=== PATIENT | female | born 1970 | race Caucasian/White ===

== ENCOUNTER 2018-09-19 21:35 | Emergency (ER) | payer MEDICAID, SELFPAY ==
[2018-09-19 21:36] VITALS: BP 149/93; PULSE 82; RESP 16; TEMP 35.9; O2SAT 98; BMI 32.2
--- NOTE | 2018-09-19 22:46 | EKG12_ITS ---
Test Reason : Blood Pressure : / mmHG Vent. Rate : 071 BPM Atrial Rate : 071 BPM P-R Int : 124 ms QRS Dur : 088 ms QT Int : 384 ms P-R-T Axes : 036 059 057 degrees QTc Int : 417 ms Normal sinus rhythm Normal ECG Confirmed by SONIA CORTES, AMISH ([id number]), non linear editor KATE BLACK ([id number]) on 09/22/2018 12:50:14 PM Referred By: THA Confirmed By:AMISH SCOTT MD
--- NOTE | 2018-09-19 22:49 | ED.RN ---
NO OLD EKGS IN MUSE
--- NOTE | 2018-09-19 23:09 | ED.VISSUMM ---
- ER Visit Summary Date of Service: 09/19/18 Chief Complaint: High potassium History of Present Illness: The patient is a 48 F with a history of diabetes, hypertension, high cholesterol. Patient was seen by a rent control office manager at [facility] today. After the appointment blood work was drawn. They received a phone call tonight that her potassium was greater than 6 and she needed to present to the emergency room. Patient has no physical complaints. Physical Examination: Vital signs unremarkable. Patient sitting upright in bed no acute distress. Patient is in no acute distress and is nontoxic appearing. Head and neck examination is normal. Heart is regular rate and rhythm. Palpable pulses are noted throughout. Lungs are clear with good air movement throughout. Abdomen is soft and nontender. Bowel sounds are noted. Extremity examination is unremarkable with full range of motion. Neurologic examination reveals no focal deficits. Test Results: EKG is sinus at 71 with no T wave changes. CBC was normal white count hemoglobin 10.8. Chemistry studies here reveal potassium of 4.6. Her BUN is 35 and her creatinine is 1.44. Glucose is 211. Emergency Department Course and Treatment: I discussed with the patient that I believe that her potassium was high on her earlier lab draw secondary to hemolysis. At this time there is no evidence of hyperkalemia. Patient is to follow-up with her rent control office manager as scheduled. Treatment Plan: [] Disposition: Discharge Impression: Erroneous lab result This note was generated with [employer] dictation software. It may contain incorrect words, spelling, and punctuation that were not noted in review of the chart prior to signing ED Disposition - Plan for ED Patient: Disposition: Home or Assisted Living Chief Complaint: Abn Labs Referrals: Colin Pedraza [Primary Care Provider] - Additional Instructions: Your repeat potassium level is normal at 4.6. No acute treatment is needed.
[2018-09-19 23:14] LABS: Absolute Lymphocyte Count 3.11 X10^3/ul (0.83-4.51); Absolute Neutrophil Count 4.1 X10^3/uL (2.0-7.7); Basophil# 0.07 X10^3/uL; Basophil% 0.8 % (0-1); Hematocrit 33.2 % (37-47); Hemoglobin 10.8 g/dl (12.0-15.0); Lymphocyte # 3.11 X10^3/ul (4.0); Lymphocyte % 37.1 % (19-41); Mean Corp Hgb Conc 32.5 g/gl (32-36); Mean Corpuscular Hgb 28.3 pg (27.0-32.0); Mean Corpuscular Volume 87.1 fL (81-99); Mean Platelet Vol. 10.2 fl (6.2-12.0); Monocyte# 0.57 X10^3/uL; Monocyte% 6.8 % (0-10); Neutrophil # 4.09 X10^3/uL (2.7-7.7); Neutrophil % 48.8 % (47-70); Platelet Count 214 K/mm3 (150-450); RBC Distribution Width SD 39.7 fl (35.1-43.9); Red Blood Count 3.81 M/mm3 (4.2-5.4); White Blood Count 8.4 K/mm3 (4.4-11.0)
[2018-09-19 23:18] VITALS: BP 129/84; PULSE 73; RESP 16; O2SAT 98
[2018-09-19 23:18] LABS: POSITIVE COUNT NO; POSITIVE DIFFERENTIAL NO; POSITIVE MORPHOLOGY NO
[2018-09-19] MEDS: 0.9% Normal Saline 1,000 ML 150 ML IV (23:18)
[2018-09-19 23:20] VITALS: RESP 16; TEMP 36.8; O2SAT 98
[2018-09-19 23:22] LABS: Anion Gap 10 (5-15); BUN 35 mg/dL (7-18); BUN/Creat Ratio 24.3 RATIO (10-20); Calcium,Total 8.8 mg/dL (8.5-10.1); Chloride 106 mmol/L (98-107); Creatinine, Serum 1.44 mg/dL (0.55-1.02); EST Glomerular Filtration Rate 42 mL/min (>60); Est Glom Filt Rate - Afr Amer 50 mL/min (>60); Estimated Creatinine Clearance 35.06 ml/min; Glucose 211 mg/dL (74-106); Potassium 4.6 mmol/L (3.5-5.1); Sodium Level 135 mmol/L (136-145)
--- NOTE | 2018-09-19 23:28 | ED.DEP ---
ED Disposition - Plan for ED Patient: Disposition: Home or Assisted Living Chief Complaint: Abn Labs Referrals: Colin Pedraza [Primary Care Provider] - Additional Instructions: Your repeat potassium level is normal at 4.6. No acute treatment is needed.
[2018-09-19 23:36] VITALS: BP 142/74; PULSE 75; RESP 16; O2SAT 98
== END 2018-09-19 23:45 | disposition home or self-care (01) ==
PROVIDERS: Emergency Provider Emergency Medicine; Family Provider Student in an Organized Health Care Education/Training Program; PCP Student in an Organized Health Care Education/Training Program
DX: R88.8 Abnormal findings in other body fluids and substances (principal); E11.9 Type 2 diabetes mellitus without complications; I10 Essential (primary) hypertension; E78.00 Pure hypercholesterolemia, unspecified; Z72.0 Tobacco use
CPT/HCPCS: 80048; 85025; 93005; 96360; 99284; J7030; A4216

== ENCOUNTER 2019-04-16 12:51 | Emergency (ER) | payer MEDICAID, SELFPAY ==
[2019-04-16 12:52] VITALS: BP 141/84; PULSE 71; RESP 16; TEMP 36.8; O2SAT 100; BMI 29.2
--- NOTE | 2019-04-16 13:19 | RAD_ITS ---
STUDY: X-RAY - ACUTE ABDOMINAL SERIES REASON FOR EXAM: Female, 48 years old. Nausea and vomiting. Constipation. TECHNIQUE: Single view of the chest. Supine, upright view(s) of the abdomen were obtained. COMPARISON: None. FINDINGS: The lungs are clear. There are no pleural effusions. There is no pneumothorax. The heart is normal in size. There is no bowel obstruction. There is air and stool to the level of the rectum. There is a large amount of stool in the colon, consistent with constipation. There is no free air. The visualized osseous structures are within normal limits. RAD/Acute Abdomen Inc Chest IMPRESSION: Clear lungs. No bowel obstruction. Constipation. Electronically Signed: Ge Strauss, at 14:28 EDT Tel , Service support ,
--- NOTE | 2019-04-16 13:27 | ED.VIS.GEN ---
History of Present Illness Chief Complaint: Constipation Detail of Chief Complaint: Nausea and vomiting Informant: Patient, Family Onset: Days Context: Sudden Onset Timing: Intermittent - Nausea and vomiting and constipation Location: Generalized abdominal pain with vomiting Current Severity: Mild Maximum Severity: Moderate Worsened by: Pain worse with vomiting Relieved by: Nothing Associated Symptoms: Small hard stool and positive flatus Narrative: Patient is a middle-age woman who presents with nausea vomiting past several days with difficulty moving her bowels. She states she is going small hard amounts of stool. She is passing gas but not as much as normal. She denies history of abdominal surgery. She denies history of obstruction. She denies urologic symptoms. She denies respiratory cardiac symptoms. She denies dysuria, frequency, urgency or hematuria. Prior similar symptoms: No Recent Illness/Hospitalization: No - Past Medical History (1) History of type 2 diabetes mellitus Status: Acute (2) History of hypertension Status: Acute (3) Dysfunction, bladder Status: Acute Past Medical History - Allergies and Home Meds Allergies/Adverse Reactions: Allergies No Known Allergies Allergy (Verified 09/19/18 21:36) Primary Care Physician: Colin Pedraza [Primary Care Provider] - Prior records reviewed: Yes Surgical History: no surgical history Lives: With Family Smoking Status: Former smoker Alcohol: None Drugs: None Review of Systems General: Denies: Chills, Fever, Sweats Eyes: Denies: Visual changes - bilaterally, Diplopia ENT: Denies: Rhinorrhea, Sore throat Cardiovascular: Denies: Chest pain, Palpitations Respiratory: Denies: Dyspnea, Cough, Dyspnea on exertion Gastrointestinal: Reports: Abdominal pain, Nausea, Vomiting, Constipation. Denies: Diarrhea, Melena, Hematochezia Genitourinary: Denies: Dysuria, Hematuria, Frequency Musculoskeletal: Denies: Back pain, Extremity Pain Skin: Denies: Rash, Wounds Neurological: Denies: Headache, Weakness, Numbness Endocrine: Denies: Polyuria, Polydipsia Hematologic: Denies: Easy bruising Allergy: Denies: Uticaria, Swelling of the mouth Physical Exam Vital Signs/Narrative: Vital Signs Temp Pulse Resp BP Pulse Ox 04/16/19 12:52 98.2 F 71 16 141/84 H 100 Inital Vital Signs reviewed: Yes General: Well nourished, Well developed, No Acute Distress Head: Normocephalic, Atraumatic Eyes: Perrl, EOMI ENT: No rhinorrhea, Dry mucous membranes Neck: Supple, Nontender, No lymphadenopathy, No JVD Cardiovascular: Regular rate, Regular rhythm, No murmurs, Normal S1, Normal S2 Respiratory: No distress, CTA bilaterally, Chest nontender Abdomen: Soft, Nontender, Nondistended, Normal bowel sounds, No masses Rectal: Deferred Back: Nontender, Normal Inspection Extremities: Nontender, No edema Skin: Normal color, No rash Neurological: Alert, Oriented x3, Cranial nerves II-XII grossly intact, Normal Strength, Normal Sensation Psychological: Normal affect, Normal Mood Diagnostic/Tx/Re-eval Chest X-Ray - ED: Read by ED Physician, - - 3 view abdominal series was obtained. The chest portion is unremarkable with normal cardiac silhouette, mediastinum and lung parenchyma. The abdominal portion reveals significant amount of fecal stasis. There is no evidence of ileus, obstruction or pneumoperitoneum. Impressions Acute Abdomen Series 04/16/19 13:19 IMPRESSION: Clear lungs. No bowel obstruction. Constipation. Electronically Signed: Ge Rica, at 14:28 EDT Tel , Service support , 04/16/19 13:19 Acute Abdomen Inc Chest [RAD] Stat Laboratory Results 04/16/19 13:35 Sodium 124 L Potassium 3.6 Chloride 86 L Carbon Dioxide 27.0 Anion Gap 11 BUN 13 Creatinine 0.86 Estim Creat Clear Calc 58.71 Est GFR (MDRD) Af Amer 91 Est GFR (MDRD) Non-Af 75 BUN/Creatinine Ratio 15.1 Glucose 139 H Calcium 9.4 Patient has hyponatremia and hypochloremia secondary to thiazide diuretic. Since she is asymptomatic no treatment was undertaken. She was instructed to follow-up with her doctor. - Medical Decision Making We will obtain abdominal series to evaluate for ileus, obstruction versus obstipation. Clinically she is dehydrated and will receive 1 L of normal saline. Since she had symptoms for several days we will obtain a basic metabolic panel to assess electrolyte and renal function. Patient was referred to her primary care physician regarding thiazide diuretic and hyponatremia. She was instructed to drink 10 ounces of mag citrate followed 4 hours later by mag citrate and to drink a glass of mag citrate every hour until she has results. ED Disposition - Plan for ED Patient: Disposition: Home or Assisted Living Diagnosis: Constipation, Hyponatremia, Hypochloremia Instructions: CONSTIPATION (Adult) Referrals: Colin Pedraza [Primary Care Provider] - 5-7 Days Additional Instructions: You need to follow-up with your primary care physician to discuss possibly changing your blood pressure medication. Your sodium is low because of the 1 of your blood pressure medicines. You do have evidence of constipation on the abdominal x-ray. Recommendation is 10 ounces of mag citrate followed 4 hours later by a glass with MiraLAX. Drink a glass of MiraLAX every hour until you have results.
[2019-04-16] MEDS: Ondansetron 4 MG/2 ML Vial IV (13:46)
[2019-04-16] MEDS: 0.9% Normal Saline 1,000 ML 1000 ML IV (13:46)
[2019-04-16 14:02] LABS: Anion Gap 11 (5-15); BUN 13 mg/dL (7-18); BUN/Creat Ratio 15.1 RATIO (10-20); Calcium,Total 9.4 mg/dL (8.5-10.1); Chloride 86 mmol/L (98-107); Creatinine, Serum 0.86 mg/dL (0.55-1.02); EST Glomerular Filtration Rate 75 mL/min (>60); Est Glom Filt Rate - Afr Amer 91 mL/min (>60); Estimated Creatinine Clearance 58.71 ml/min; Glucose 139 mg/dL (74-106); Potassium 3.6 mmol/L (3.5-5.1); Sodium Level 124 mmol/L (136-145)
[2019-04-16 15:13] VITALS: BP 147/96; PULSE 68; RESP 17; O2SAT 99
== END 2019-04-16 15:14 | disposition home or self-care (01) ==
PROVIDERS: Emergency Provider Emergency Medicine; Family Provider Student in an Organized Health Care Education/Training Program; PCP Student in an Organized Health Care Education/Training Program
DX: K59.00 Constipation, unspecified (principal); E87.1 Hypo-osmolality and hyponatremia; E87.8 Other disorders of electrolyte and fluid balance, not elsewhere classified; Z87.891 Personal history of nicotine dependence; E11.9 Type 2 diabetes mellitus without complications; I10 Essential (primary) hypertension
CPT/HCPCS: 74022; 80048; 99283; J7030; A4216; J2405

== ENCOUNTER 2019-04-22 14:33 | Inpatient (IN) | payer MEDICAID, SELFPAY ==
[2019-04-22] VITALS (8 sets, daily range): BP systolic 160–174; BP diastolic 70–88; PULSE 65–70; RESP 15–16; TEMP 35.8–36.8; O2SAT 98–100; BMI 31.3; BMI 31.4
--- NOTE | 2019-04-22 15:47 | ED.VISSUMM ---
- ER Visit Summary Date of Service: 04/22/19 Chief Complaint: Nausea and vomiting. Sent over from primary care physician's office due to low sodium. History of Present Illness: The patient is a 48 F 3 of diabetes, hypertension and renal insufficiency. Patient has had nausea vomiting for about 2 weeks. Intermittent. No hematemesis. No melena or fever. Was seen here about a week ago treated is doing better for the last several days has developed nausea and vomiting again. Had labs done at the outpatient physician's office reportedly came back with low sodium they called her today and told her dad to take her to the emergency department. Physical Examination: Middle-aged female. No acute distress. Vital signs are stable afebrile. HEENT exam unremarkable. Much with members. Neck nontender no lymphadenopathy. Lungs clear to auscultation bilaterally. Heart regular rhythm no murmur. Rate about 65. No abdomen soft nontender. Normal bowel sounds no peritoneal signs. No signs of obstruction. No acute bowel obstruction or masses. Patient is moving all 4 extremities. Neurologically she is awake and alert. Dad is CBC present in her room and gives most of the history. Her back is nontender. Skin is pale. No rashes. Neurologically she is awake and alert with no focal motor deficits. Test Results: CBC White count 11.7. Hemoglobin 9.2. Electrolytes sodium 108. Potassium 3. Anion gap 9. Normal BUN and creatinine. Emergency Department Course and Treatment: Patient treated with a liter normal saline. Screening labs will be obtained. She was given IV Zofran. Will have a p.o. fluid challenge. Treatment Plan: Patient started on IV normal saline. I spoke to the hospitalist about admission. Patient be admitted to PCU. Disposition: PCU admission Impression: Nausea and vomiting Acute hyponatremia and hypokalemia. This note was generated with [employer] dictation software. It may contain incorrect words, spelling, and punctuation that were not noted in review of the chart prior to signing ED Disposition - Plan for ED Patient: Referrals: Colin Pedraza [Primary Care Provider] -
[2019-04-22 15:58] LABS: Absolute Lymphocyte Count 1.03 X10^3/uL (0.83-4.51); Absolute Neutrophil Count 9.9 X10^3/uL (2.0-7.7); Basophil# 0.01 X10^3/uL; Basophil% 0.1 % (0-1); Eosinophil# 0.03 X10^3/uL; Eosinophils% 0.3 % (0-5); Hematocrit 30.8 % (37-47); Hemoglobin 11.2 g/dL (12.0-15.0); Lymphocyte # 1.03 X10^3/ul (4.0); Lymphocyte % 8.8 % (19-41); Mean Corp Hgb Conc 36.4 g/dL (32-36); Mean Corpuscular Hgb 27.5 pg (27.0-32.0); Mean Corpuscular Volume 75.5 fL (81-99); Mean Platelet Vol. 9.4 fl (6.2-12.0); Monocyte# 0.66 X10^3/uL; Monocyte% 5.7 % (0-10); NRBC Flagged by Analyzer 0 % (0-5); Neutrophil # 9.87 X10^3/uL (2.7-7.7); Neutrophil % 84.7 % (47-70); Platelet Count 219 K/mm3 (150-450); Red Blood Count 4.08 M/mm3 (4.2-5.4); White Blood Count 11.7 K/mm3 (4.4-11.0)
[2019-04-22 16:12] LABS: Anion Gap 9 (5-15); BUN 9 mg/dL (7-18); BUN/Creat Ratio 11.8 RATIO (10-20); Calcium,Total 8.5 mg/dL (8.5-10.1); Chloride 71 mmol/L (98-107); Creatinine, Serum 0.76 mg/dL (0.55-1.02); EST Glomerular Filtration Rate 87 mL/min (>60); Est Glom Filt Rate - Afr Amer 105 mL/min (>60); Estimated Creatinine Clearance 66.44 ml/min; Glucose 97 mg/dL (74-106); Sodium Level 108 mmol/L (136-145)
[2019-04-22] MEDS: 0.9% Normal Saline 1,000 ML 1000 ML IV (16:33)
[2019-04-22] MEDS: Ondansetron 4 MG/2 ML Vial IV (16:34)
--- NOTE | 2019-04-22 16:43 | NURSING ---
DR NARDA MCCARTY
--- NOTE | 2019-04-22 17:10 | CASEMGMT ---
RN CM Assessment Introduced role of RN CM to patient and patient father at bedside.? Patient is alert, oriented and able?to participate in RN CM Assessment. ?Care providers, pharmacy, and demographics verified. Presentation: N/v. Was seen in ER 04/16/19 for N/v, constipation. Admit Dx: Severe Hyponatremia Re-Admit: No Barriers/Issues: Patient has a lack of Social Support. Per Father just him and denies other social support. States patient needs to do a HPOA/LW and plan to do it through his contact, states concern that if he cannot help patient going to need assistance. States he is the one who is currently taking her to appointments. Patient and Father made aware if he were unable to that through her Insurance CRS that she can call and they can assist with transportation, also made aware for LT Plan can assist with [facility] Placement if/when needed. States has not taken her medications x2 weeks d/t inability to keep them down. PCP: Colin Pedraza Specialists: [facility]- Dr Mario Adhikari, [place] SUBACUTE NURSE- [place] Preferred Pharmacy: [email or web address] Insurance: [facility] [[email or web address] Rx Benefit: Yes? LNOK: Father- Martin Gamez LW/HPOA: None, declines offered information at this time, made aware [facility] offers information and services if changes her mind. Living Arrangements:? Lives alone in a 2 story home, Bedroom on [address], [address] steps to enter home. ADL?s: Independent with ambulation and ADLs Transportation: Patient drives, Plan for Father to transport upon DC DME: [employer] HHC: None SNF: None Goal: Home, does not think will have any needs, Concern of finding out what is causing her N/V. Denies any further questions/issues/concerns with DC Planning at this time. Aware CM remains available for any emerging needs. DC PLAN: Home with no anticipated needs identified at this time. STEPHAN Campos
[2019-04-22] MEDS: 0.9% Normal Saline 1,000 ML 100 ML IV (17:30)
[2019-04-22 18:31] LABS: Phosphorus 3.6 mg/dL (2.5-4.9)
[2019-04-22 18:47] LABS: Hemoglobin A1c 7.7 % (4.2-6.3)
[2019-04-22 18:55] LABS: AST(SGOT) 59 U/L (15-37); Alanine Aminotransfer ALT/SGPT 33 U/L (13-56); Albumin, Serum 2.9 g/dL (3.2-5.0); Alkaline Phosphatase 124 U/L (45-117); Anion Gap 10 (5-15); BUN 9 mg/dL (7-18); BUN/Creat Ratio 11.9 RATIO (10-20); Bilirubin, Direct 0.13 mg/dL (0.00-0.30); Calcium,Total 8.4 mg/dL (8.5-10.1); Chloride 75 mmol/L (98-107); Creatinine, Serum 0.76 mg/dL (0.55-1.02); EST Glomerular Filtration Rate 87 mL/min (>60); Est Glom Filt Rate - Afr Amer 106 mL/min (>60); Estimated Creatinine Clearance 66.44 ml/min; Globulin 3.6 g/dL (2.2-4.2); Glucose 86 mg/dL (74-106); Magnesium 1.1 mg/dL (1.6-2.6); Potassium 3.3 mmol/L (3.5-5.1); Protein, Total 6.5 g/dL (6.4-8.2); Sodium Level 112 mmol/L (136-145); Thyroid Stim Hormone (TSH) 0.12 uIU/mL (0.358-3.74)
[2019-04-22 19:06] LABS: Bacteria 0 SEEN /hpf (None Seen); Mucous, Urine 0 SEEN /hpf (<or=2+); Red Blood Cells-Urine 0 SEEN /hpf (0-5); Squamous Epithelial Cells - UA 0 SEEN /hpf (5-10); White Blood Cells 0 SEEN /hpf (0-5)
[2019-04-22 19:13] LABS: Urine Sodium 11 mmol/L (Not Establ.)
[2019-04-22 19:17] LABS: Color, Urine Yellow (Yellow); Glucose, Dipstick Normal (Normal); Ketone-Dipstick Negative (Negative); Leukocyte Esterase-Dipstick Negative /ul (Negative); Nitrite-Dipstick Negative (Negative); Occult Blood-Urine 150 /ul (Negative); Protein-Dipstick 100 mg/dl (Negative); Specific Gravity, Urine 1.005 (1.002-1.030); Urine Bilirubin Dipstick Negative (Negative); Urine Clarity Clear (Clear); Urine Urobilinogen Normal (Normal)
[2019-04-22 19:22] LABS: Creatinine, Urine (random) < 13.00 mg/dL (NO RANGE EST.)
[2019-04-22 19:34] LABS: Osmolality, Urine 58 mOsm/KG
[2019-04-22 19:36] LABS: Osmolality, Serum 231 mOsm/KG (275-295)
[2019-04-22 19:45] LABS: Ferritin 32 ng/mL (8-252); Iron 82 ug/dL (50-170); Iron Binding Capacity,Total 568 ug/dL (250-450); PERCENT IRON SATURATION 14.4 % (15.0-55.0)
--- NOTE | 2019-04-22 19:47 | HP.PCM_ITS ---
Problem List (1) Hyponatremia Status: Acute (2) Metabolic encephalopathy Status: Acute (3) Hyperkalemia Status: Chronic (4) Hypokalemia Status: Acute (5) Diabetic retinopathy Status: Chronic Qualifiers: Diabetes mellitus type: type 2 (6) Obesity (BMI 30.0-34.9) Status: Chronic (7) Hypomagnesemia Status: Acute (8) Nausea vomiting and diarrhea Status: Acute (9) Low TSH level Status: Acute (10) Hyperlipidemia Status: Chronic (11) Microcytic anemia Status: Acute (12) Proteinuria Status: Chronic (13) Asthma Status: Chronic Qualifiers: Asthma severity: mild (14) Depression Status: Chronic (15) GERD (gastroesophageal reflux disease) Status: Chronic (16) Restless leg syndrome Status: Chronic History of Present Illness Date of Admission: 04/22/19 Chief Complaint: confusion, fatigue, N/V for the past 2 weeks The patient is a 48 year old F with a PMH of hypertension, diabetes mellitus type 2, heart murmur, GERD, hyperlipidemia, chronic hyperkalemia and proteinuria for which she sees a bean viner at the [facility], diabetic retinopathy, restless leg syndrome and obesity who presented to the emergency department at [facility] complaining of nausea/vomiting/loose stools for the past 2 weeks. She has not taking any of her prescribed medications for the past week due to inability to keep anything down. She has also been confused and f atigued recently. Vital signs at presentation to the emergency department are temperature 96.5, blood pressure 168/83, respiratory rate 16 and she was 100% saturated on room air. CBC was significant for a white blood cell count of 11.7 with 84% neutrophils. Hemoglobin was 11.2 with an MCV of 75.5. Platelet count was 219,000. Chemistries showed a low sodium of 108, low potassium at 3.0 and a low chloride at 71. BUN was 9 and the creatinine was 0.76. Calcium was 8.5. Random blood sugar was 97. On PE she was confused and had a hard time answering my questions. Her father provide most of her hx. She was admitted to a monitored bed on PCU and workup for hyponatremia was iniatiated. Past Medical History Past Medical History (Chronic Problems): Chronic Problems Hyperkalemia (Chronic) Diabetic retinopathy (Chronic) Obesity (BMI 30.0-34.9) (Chronic) Hyperlipidemia (Chronic) Proteinuria (Chronic) Asthma (Chronic) Depression (Chronic) GERD (gastroesophageal reflux disease) (Chronic) Restless leg syndrome (Chronic) Allergies No Known Allergies Allergy (Verified 04/22/19 15:22) Home Medications: Ambulatory Orders Medication Instructions Recorded Gabapentin [Neurontin] 600 mg PO QHS 05/27/16 Albuterol Inhaler [Ventolin Hfa 2 puff INHALATION Q4H PRN PRN 04/16/19 (SP)] Amlodipine Besylate 10 mg PO DAILY 04/16/19 Atorvastatin Calcium 40 mg PO DAILY 04/16/19 Bupropion HCl [Bupropion Xl] 300 mg PO DAILY 04/16/19 Chlorthalidone 25 mg PO DAILY 04/16/19 Cholecalciferol (VIT D3) [Vitamin 1,000 unit PO DAILY 04/16/19 D] Lysine 1,000 mg PO DAILY 04/16/19 Multivitamin [Once Daily] 1 tab PO DAILY 04/16/19 [place]-3 Fatty Acids/Fish Oil 2 cap PO DAILY 04/16/19 [[place] 3 1,000 mg Softgel] Patiromer Calcium Sorbitex 16.8 gm PO DAILY 04/16/19 [Veltassa] Ranitidine [Zantac] 150 mg PO BID 04/16/19 Sodium Bicarbonate 1,300 mg PO DAILY 04/16/19 Estrogen,Con/M-Progest Acet 1 tab PO DAILY 04/22/19 [Prempro 0.625-2.5 MG Tablet] Ferrous Sulfate 325 mg PO DAILY 04/22/19 Lisinopril 10 mg PO DAILY 04/22/19 Meclizine HCl 25 mg PO BID PRN PRN 04/22/19 Sodium Bicarbonate 650 mg PO DAILY 04/22/19 metFORMIN (XR) [Glucophage Xr] 1,000 mg PO BID 04/22/19 Surgical History: - - Surgery to remove a skin cancer from her ear and extraction of teeth. Psychiatric History: Depression [employer]URE/[employer] History: - - she is POG1 with 1 miscarriage Lives: Alone Smoking Status: Former smoker Tobacco Use: Non-smoker Alcohol: Rare - used to drink everyday when she was in her 20's Drugs: None - *Family History Paternal History Items: - - she is adopted and has no knowledge of her parents Review of Systems Constitutional: Reports: Anorexia, Weakness. Denies: Chills, Fever, Weight Change Eyes: Denies: Vision Change HEENT: Denies: Difficulty Swallowing, Head Aches, Sinus Congestion, Sinus Drainage, Sore Throat Cardiovascular: Reports: Light Headedness. Denies: Chest Pain, Edema, Heaviness, Palpitations Respiratory: Denies: Cough, Shortness of Breath, Shortness of breath at rest, Shortness of breath upon exertion, Sputum production, Wheezing Gastrointestinal: Reports: Diarrhea, Nausea, Vomiting. Denies: Abdominal Pain, Hematemesis, Hematochezia, Melena Genitourinary: Denies: Dysuria Gynecological: Denies: Breast symptoms, Vaginal discharge Musculoskeletal: Reports: - - restless leg. Denies: Joint Pain, Joint Tenderness Skin: Denies: Jaundice, Rash, Wounds Neurological: Reports: Balance problems - just recently, Confusion. Denies: Slurred speech, Difficulty swallowing, Focal weakness, Headaches, Numbness, Tingling, Seizures Psychiatric: Reports: Depression. Denies: Anxiety, Homicidal Ideations, Suicidal Ideations Endocrine: Denies: Hx of Thyroiditis Hematologic/ Lymphatic: Denies: Easy Bruising, Easy Bleeding, Hx of blood clot VTE Information - Inpt Only VTE Present on Admission: No VTE Mechan Device Prophylaxis: Knee High ENMANUEL Hose VTE Pharm Prophylaxis ordered?: Yes Patient Problems: Active and Suspected Problems Hyponatremia (Acute) Metabolic encephalopathy (Acute) Hypokalemia (Acute) Hypomagnesemia (Acute) Nausea vomiting and diarrhea (Acute) Low TSH level (Acute) Microcytic anemia (Acute) - Physical Exam General: Alert, Cooperative, - - pale, having a hard time answering questions and is upset that she can not remeber things - her father tells me that this is very unusual for her HEENT: Atraumatic, PERRLA, EOMI, Normocephalic Oral: No Gingival or Mucosal Lesions/ Ulcerations, Dry Mucosa Neck: Supple, No JVD, Negative Carotid Bruits, Trachea Midline Lungs: Clear to auscultation, Normal air movement, No wheeze, No rales, Diminished Cardiovascular: Regular rate, Regular Rhythm, Normal S1, Normal S2, No Ectopic Activity, Murmur - 1-2/6 at the second RICS with radiation to the LVOT and the LLSB, No rub noted, No Gallop Abdomen: Bowel Sounds Present, Soft, Non Tender, Non-Distended Extremities: No clubbing, No cyanosis, No edema, No Calf Tenderness, Peripheral Pulses Normal Skin: No rashes, No breakdown Musculoskeletal: No Tenderness to Palpation of Joints or Extremities Neurological: Cranial nerves II-XII grossly intact, Neuro grossly intact Psych/Mental Status: Normal Affect, Appropriate Vital Signs Temp Pulse Resp BP Pulse Ox 98.3 F 70 16 160/76 H 100 04/22/19 17:42 04/22/19 17:42 04/22/19 17:42 04/22/19 17:43 04/22/19 17:42 Oxygen Delivery Method Room Air Weight: 160 lb 11.472 oz Body Mass Index (BMI) 31.4 Laboratory Tests Past 24 Hrs 04/22/19 04/22/19 04/22/19 15:36 15:36 18:00 WBC 11.7 H RBC 4.08 L Hgb 11.2 L Hct 30.8 L MCV 75.5 L MCH 27.5 MCHC 36.4 H RDW Std Deviation 33.0 L RDW Coeff of Mandy 12.0 Plt Count 219 MPV 9.4 Immature Gran % (Auto) 0.400 Neut % (Auto) 84.7 H Lymph % (Auto) 8.8 L [place] % (Auto) 5.7 Eos % (Auto) 0.3 Baso % (Auto) 0.1 Absolute Neuts (auto) 9.9 H Absolute Lymphs (auto) 1.03 Nucleated RBC % 0 Sodium 108 L* 112 L* Potassium 3.0 L 3.3 L Chloride 71 L* 75 L Carbon Dioxide 28.0 27.0 Anion Gap 9 10 BUN 9 9 Creatinine 0.76 0.76 Estim Creat Clear Calc 66.44 66.44 Est GFR (MDRD) Af Amer 105 106 Est GFR (MDRD) Non-Af 87 87 BUN/Creatinine Ratio 11.8 11.9 Glucose 97 86 Hemoglobin A1c Serum Osmolality Calcium 8.5 8.4 L Phosphorus Magnesium 1.1 L Iron TIBC Iron Saturation Ferritin Total Bilirubin 0.50 Direct Bilirubin 0.13 AST 59 H ALT 33 Alkaline Phosphatase 124 H Total Protein 6.5 Albumin 2.9 L Globulin 3.6 TSH 0.12 L Urine Color Urine Clarity Urine pH Ur Specific [place] Urine Protein Urine Glucose (UA) Urine Ketones Urine Occult Blood Urine Nitrite Urine Bilirubin Urine Urobilinogen Ur Leukocyte Esterase Urine RBC Urine WBC Ur Squamous Epith Cells Urine Bacteria Urine Mucus Urine Osmolality Ur Random Sodium Urine Creatinine 04/22/19 04/22/19 04/22/19 18:00 18:00 18:00 WBC RBC Hgb Hct MCV MCH MCHC RDW Std Deviation RDW Coeff of Mandy Plt Count MPV Immature Gran % (Auto) Neut % (Auto) Lymph % (Auto) [place] % (Auto) Eos % (Auto) Baso % (Auto) Absolute Neuts (auto) Absolute Lymphs (auto) Nucleated RBC % Sodium Potassium Chloride Carbon Dioxide Anion Gap BUN Creatinine Estim Creat Clear Calc Est GFR (MDRD) Af Amer Est GFR (MDRD) Non-Af BUN/Creatinine Ratio Glucose Hemoglobin A1c 7.7 H Serum Osmolality 231 L Calcium Phosphorus 3.6 Magnesium Iron TIBC Iron Saturation Ferritin Total Bilirubin Direct Bilirubin AST ALT Alkaline Phosphatase Total Protein Albumin Globulin TSH Urine Color Urine Clarity Urine pH Ur Specific [place] Urine Protein Urine Glucose (UA) Urine Ketones Urine Occult Blood Urine Nitrite Urine Bilirubin Urine Urobilinogen Ur Leukocyte Esterase Urine RBC Urine WBC Ur Squamous Epith Cells Urine Bacteria Urine Mucus Urine Osmolality Ur Random Sodium Urine Creatinine 04/22/19 04/22/19 04/22/19 18:00 18:52 18:52 WBC RBC Hgb Hct MCV MCH MCHC RDW Std Deviation RDW Coeff of Mandy Plt Count MPV Immature Gran % (Auto) Neut % (Auto) Lymph % (Auto) [place] % (Auto) Eos % (Auto) Baso % (Auto) Absolute Neuts (auto) Absolute Lymphs (auto) Nucleated RBC % Sodium Potassium Chloride Carbon Dioxide Anion Gap BUN Creatinine Estim Creat Clear Calc Est GFR (MDRD) Af Amer Est GFR (MDRD) Non-Af BUN/Creatinine Ratio Glucose Hemoglobin A1c Serum Osmolality Calcium Phosphorus Magnesium Iron 82 TIBC 568 H Iron Saturation 14.4 L Ferritin 32 Total Bilirubin Direct Bilirubin AST ALT Alkaline Phosphatase Total Protein Albumin Globulin TSH Urine Color Urine Clarity Urine pH Ur Specific [place] Urine Protein Urine Glucose (UA) Urine Ketones Urine Occult Blood Urine Nitrite Urine Bilirubin Urine Urobilinogen Ur Leukocyte Esterase Urine RBC Urine WBC Ur Squamous Epith Cells Urine Bacteria Urine Mucus Urine Osmolality 58 Ur Random Sodium Urine Creatinine < 13.00 04/22/19 04/22/19 18:52 18:52 WBC RBC Hgb Hct MCV MCH MCHC RDW Std Deviation RDW Coeff of Mandy Plt Count MPV Immature Gran % (Auto) Neut % (Auto) Lymph % (Auto) [place] % (Auto) Eos % (Auto) Baso % (Auto) Absolute Neuts (auto) Absolute Lymphs (auto) Nucleated RBC % Sodium Potassium Chloride Carbon Dioxide Anion Gap BUN Creatinine Estim Creat Clear Calc Est GFR (MDRD) Af Amer Est GFR (MDRD) Non-Af BUN/Creatinine Ratio Glucose Hemoglobin A1c Serum Osmolality Calcium Phosphorus Magnesium Iron TIBC Iron Saturation Ferritin Total Bilirubin Direct Bilirubin AST ALT Alkaline Phosphatase Total Protein Albumin Globulin TSH Urine Color Yellow Urine Clarity Clear Urine pH 7.0 Ur Specific [place] 1.005 Urine Protein 100 H Urine Glucose (UA) Normal Urine Ketones Negative Urine Occult Blood 150 H Urine Nitrite Negative Urine Bilirubin Negative Urine Urobilinogen Normal Ur Leukocyte Esterase Negative Urine RBC 0 SEEN Urine WBC 0 SEEN Ur Squamous Epith Cells 0 SEEN Urine Bacteria 0 SEEN Urine Mucus 0 SEEN Urine Osmolality Ur Random Sodium 11 Urine Creatinine Assessment/Plan All Active Problems History of type 2 diabetes mellitus (Acute) History of hypertension (Acute) Dysfunction, bladder (Acute) Hyponatremia (Acute) Metabolic encephalopathy (Acute) Hypokalemia (Acute) Hypomagnesemia (Acute) Nausea vomiting and diarrhea (Acute) Low TSH level (Acute) Microcytic anemia (Acute) Impressions 1. Severe hyponatremia 2. Hypokalemia 3. Metabolic encephalopathy 4. Microcytic anemia 5. Uncontrolled hypertension-likely secondary to not taking her medications for the past week due to persistent nausea/vomiting 6. History of hyperkalemia and chronic renal failure with proteinuria-follows with a bean viner at [facility]. Recently started on Veltassa for hyperkalemia and she associates the N/V/loose stools with this 7. Diabetic retinopathy 8. Restless leg syndrome 9. Obesity 10. Hypomagnesemia 11. Hyperlipidemia Normal saline at 100 cc/h- Urine sodium, urine creatinine, urine and serum osmolarity. BMP every 4 hours She received 40 mEq of potassium in the emergency department Consult Dr. Ivory Reynaga for hyponatremia and history of chronic renal failure with hyperkalemia Restarted amlodipine, hold lisinopril Clear liquid diet Blood sugars before meals and at bedtime with sliding scale insulin coverage Hold chlorthalidone, Veltassa, metformin Check a phosphorus and magnesium Recheck lab in the a.m. Seizure precautions TSH, a.m. cortisol Code Visit Inpatient E&M: 28200 Init Hosp L3
[2019-04-22] MEDS: amLODIPine 10 MG Tablet PO (20:41)
[2019-04-22] MEDS: Magnesium Sulfate 4gm/100mL 4 GM/100 ML IV.SOLN. IV (21:45)
[2019-04-22 21:46] LABS: Anion Gap 7 (5-15); BUN 9 mg/dL (7-18); BUN/Creat Ratio 11.8 RATIO (10-20); Calcium,Total 7.8 mg/dL (8.5-10.1); Chloride 79 mmol/L (98-107); Creatinine, Serum 0.76 mg/dL (0.55-1.02); EST Glomerular Filtration Rate 87 mL/min (>60); Est Glom Filt Rate - Afr Amer 105 mL/min (>60); Estimated Creatinine Clearance 66.44 ml/min; Free T3 2.8 pg/mL (2.18-3.98); Glucose 126 mg/dL (74-106); Potassium 3.1 mmol/L (3.5-5.1); T4 Free Direct 1.24 ng/dL (0.76-1.46)
[2019-04-22 21:47] LABS: Sodium Level 114 mmol/L (136-145)
[2019-04-22] MEDS: Atorvastatin Calcium 40 MG Tablet PO (21:57)
[2019-04-22] MEDS: Gabapentin 600 MG Tablet PO (21:57)
[2019-04-22 23:25] LABS: Urine Chloride < 10 mmol/L (Not Establ.)
[2019-04-22 23:29] LABS: Protein, Urine (Random) 187.2 mg/dL (<11.9)
[2019-04-22 23:31] LABS: Bedside Glucose 100 mg/dL (70-110)
[2019-04-23] VITALS (8 sets, daily range): BP systolic 126–134; BP diastolic 56–76; PULSE 55–73; RESP 16; TEMP 36.4–36.8; O2SAT 96–100
[2019-04-23 02:26] LABS: Anion Gap 10 (5-15); BUN 9 mg/dL (7-18); BUN/Creat Ratio 12.8 RATIO (10-20); Chloride 84 mmol/L (98-107); EST Glomerular Filtration Rate 95 mL/min (>60); Est Glom Filt Rate - Afr Amer 115 mL/min (>60); Estimated Creatinine Clearance 72.13 ml/min; Glucose 87 mg/dL (74-106); Sodium Level 117 mmol/L (136-145)
[2019-04-23] MEDS: 0.9% Normal Saline 1,000 ML 100 ML IV ×3 (02:47→23:14)
[2019-04-23 06:41] LABS: Bedside Glucose 96 mg/dL (70-110)
[2019-04-23 06:59] LABS: Absolute Lymphocyte Count 1.34 X10^3/uL (0.83-4.51); Basophil# 0.02 X10^3/uL; Basophil% 0.2 % (0-1); Eosinophil# 0.12 X10^3/uL; Eosinophils% 1.4 % (0-5); Hematocrit 30.1 % (37-47); Hemoglobin 11.1 g/dL (12.0-15.0); Lymphocyte # 1.34 X10^3/ul (4.0); Lymphocyte % 16.1 % (19-41); Mean Corp Hgb Conc 36.9 g/dL (32-36); Mean Corpuscular Hgb 28.4 pg (27.0-32.0); Mean Platelet Vol. 9.1 fl (6.2-12.0); Monocyte# 0.76 X10^3/uL; Monocyte% 9.2 % (0-10); NRBC Flagged by Analyzer 0 % (0-5); Neutrophil # 6.03 X10^3/uL (2.7-7.7); Neutrophil % 72.7 % (47-70); Platelet Count 209 K/mm3 (150-450); RBC Distribution Width CV 12.5 % (11.6-14.6); RBC Distribution Width SD 34.4 fl (35.1-43.9); Red Blood Count 3.91 M/mm3 (4.2-5.4); White Blood Count 8.3 K/mm3 (4.4-11.0)
[2019-04-23 07:24] LABS: ALB/GLOB Ratio 0.8 RATIO (0.9-2.4); AST(SGOT) 61 U/L (15-37); Alanine Aminotransfer ALT/SGPT 38 U/L (13-56); Albumin, Serum 2.8 g/dL (3.2-5.0); Alkaline Phosphatase 124 U/L (45-117); BUN 10 mg/dL (7-18); Calcium,Total 8.1 mg/dL (8.5-10.1); Creatinine, Serum 0.83 mg/dL (0.55-1.02); EST Glomerular Filtration Rate 78 mL/min (>60); Est Glom Filt Rate - Afr Amer 95 mL/min (>60); Estimated Creatinine Clearance 60.83 ml/min; Globulin 3.5 g/dL (2.2-4.2); Glucose 94 mg/dL (74-106); Magnesium 2.7 mg/dL (1.6-2.6); Phosphorus 2.6 mg/dL (2.5-4.9); Protein, Total 6.3 g/dL (6.4-8.2); Sodium Level 122 mmol/L (136-145)
[2019-04-23 07:25] LABS: Anion Gap 9 (5-15); Chloride 87 mmol/L (98-107); Potassium 3.7 mmol/L (3.5-5.1)
--- NOTE | 2019-04-23 08:22 | PCM.CONS.R ---
Consultation - Renal 04/23/19 PCP/ Referring MD: Requesting physician: Araceli Durand Primary care physician: Colin Pedraza Reason for Consultation:: hyponatremia, hx hyperkalemia, proteinuria - History of Present Illness History of Present Illness: The patient is a 48 year old F with a PMH for hypertension, diabetes mellitus type 2 since 2012 with retinopathy, obesity, RLS, hyperlipidemia, chronic hyperkalemia on Veltassa and proteinuria followed by [facility]. She presented to the emergency department at [facility] complaining of nausea/vomiting/loose stools for the past 3 weeks. She complains of confusion and fatigue. She complained of headaches but denied falling, no vision changes, no seizure episode. She continues to be somnolent but responsive. She went to see her pcp who ordered labs as outpt and was instructed to go to ER for low sodium of 108. Her potassium was low at 3.0 and a low chloride at 71. BUN was 9 and the creatinine was 0.76. She was started on normal saline solution and sodium improved to 122 today. Urine sodium was low at 11 with urine osmolarity of 58. Urine potassium and chloride were low at 2 and <10 respectively. Her Veltassa was discontinued along with her lisinopril. She has not been hypotensive with preserved renal fxn. She goes to [facility] for routine blood work. - Allergies Allergies: Allergies No Known Allergies Allergy (Verified 04/22/19 15:22) - Current Medications Current Medications: Current Medications Amlodipine Besylate (Norvasc) 10 mg PO DAILY [facility] Last Admin: 04/22/19 20:41 Dose: 10 mg Documented by: Atorvastatin Calcium (Lipitor) 40 mg PO QHS [facility] Last Admin: 04/22/19 21:57 Dose: 40 mg Documented by: Cholecalciferol (Vitamin D) 1,000 unit PO DAILY [facility] Enoxaparin Sodium (Lovenox) 40 mg SC DAILY@1000 [facility] Gabapentin (Neurontin) 600 mg PO QHS [facility] Last Admin: 04/22/19 21:57 Dose: 600 mg Documented by: Hydralazine HCl (Apresoline Iv) 10 mg IV Q4H PRN PRN PRN Reason: [id number] [id number] Sodium Chloride () 1,000 mls @ 100 mls/hr IV .Q10H [facility] Last Admin: 04/23/19 02:47 Dose: 100 mls/hr Documented by: Pantoprazole Sodium 40 mg/ (Sodium Chloride) 110 mls @ 330 mls/hr IV Q24 [facility] Last Admin: 04/22/19 20:41 Dose: 330 mls/hr Documented by: Insulin Human Lispro (Humalog Kwikpen (Bkc)) 0 unit SC ACHS [facility]; Protocol Last Admin: 04/23/19 06:50 Dose: Not Given Documented by: Multivitamins (Multivitamin) 1 tablet PO DAILY@0800 [facility] Nutritional Formula (Lactose Free) (Glucerna Shake) 120 ml PO 4X/DAY [facility] Last Admin: 04/23/19 00:26 Dose: Not Given Documented by: Ondansetron HCl (Zofran) 4 mg IV Q6H PRN PRN PRN Reason: NAUSEA/VOMITING Prochlorperazine Edisylate (Compazine Iv) 5 mg IV Q4H PRN PRN PRN Reason: Breakthrough Nausea/Vomiting Sodium Chloride () 10 - 40 ml IV UD PRN PRN Reason: SALINE FLUSH - Past Medical History Past Medical History (Chronic Problems): Chronic Problems Hyperkalemia (Chronic) Diabetic retinopathy (Chronic) Obesity (BMI 30.0-34.9) (Chronic) Hyperlipidemia (Chronic) Proteinuria (Chronic) Asthma (Chronic) Depression (Chronic) GERD (gastroesophageal reflux disease) (Chronic) Restless leg syndrome (Chronic) - Past Surgical History Surgical History: - - Surgery to remove a skin cancer from her ear and extraction of teeth. - Social History Smoking Status: Former smoker Alcohol: Rare - used to drink everyday when she was in her 20's Drugs: None - Family History Paternal History Items: - - she is adopted and has no knowledge of her parents Review of Systems Constitutional: Reports: Anorexia, Weakness, Fatigue. Denies: Chills, Fever HEENT: Reports: Head Aches Cardiovascular: Denies: Chest Pain, Edema Respiratory: Denies: Cough, Shortness of Breath Gastrointestinal: Reports: Diarrhea, Nausea, Vomiting. Denies: Abdominal Pain, Constipation Genitourinary: Denies: Dysuria Musculoskeletal: Denies: Joint swelling Skin: Denies: Rash Neurological: Reports: - - denies falls. Denies: Balance problems, Tremor, Seizures Hematologic/ Lymphatic: Denies: Anemia Patient Problems: Active and Suspected Problems Hyponatremia (Acute) Metabolic encephalopathy (Acute) Hypokalemia (Acute) Hypomagnesemia (Acute) Nausea vomiting and diarrhea (Acute) Low TSH level (Acute) Microcytic anemia (Acute) - Physical Exam General: Alert, Oriented x3, - - somnolent but arrousable, responsive Oral: Moist Mucosa Neck: Supple Lungs: Clear to auscultation Cardiovascular: Regular rate, No murmurs, No rub noted Abdomen: Bowel Sounds Present, Soft, Non Tender, Non-Distended, Obese Extremities: No edema Skin: No rashes Psych/Mental Status: Alert and oriented to time, place, person, mood and affect Vital Signs Temp Pulse Resp BP Pulse Ox 97.9 F 55 L 16 131/76 H 96 04/23/19 02:40 04/23/19 07:00 04/23/19 02:40 04/23/19 02:40 04/23/19 02:40 Oxygen Delivery Method Room Air Weight: 72.9 kg Body Mass Index (BMI) 31.4 Intake and Output for Last 24 Hours 04/21/19 04/22/19 04/23/19 23:59 23:59 23:59 Intake Total 1200 / 1200 1211.3 / 1211.3 Output Total 100 / 100 Balance 1100 / 1100 1211.3 / 1211.3 Laboratory Tests Past 24 Hrs 04/22/19 04/22/19 04/22/19 15:36 15:36 18:00 WBC 11.7 H RBC 4.08 L Hgb 11.2 L Hct 30.8 L MCV 75.5 L MCH 27.5 MCHC 36.4 H RDW Std Deviation 33.0 L RDW Coeff of Mandy 12.0 Plt Count 219 MPV 9.4 Immature Gran % (Auto) 0.400 Neut % (Auto) 84.7 H Lymph % (Auto) 8.8 L [place] % (Auto) 5.7 Eos % (Auto) 0.3 Baso % (Auto) 0.1 Absolute Neuts (auto) 9.9 H Absolute Lymphs (auto) 1.03 Nucleated RBC % 0 Sodium 108 L* 112 L* Potassium 3.0 L 3.3 L Chloride 71 L* 75 L Carbon Dioxide 28.0 27.0 Anion Gap 9 10 BUN 9 9 Creatinine 0.76 0.76 Estim Creat Clear Calc 66.44 66.44 Est GFR (MDRD) Af Amer 105 106 Est GFR (MDRD) Non-Af 87 87 BUN/Creatinine Ratio 11.8 11.9 Glucose 97 86 Hemoglobin A1c Serum Osmolality Calcium 8.5 8.4 L Phosphorus Magnesium 1.1 L Iron TIBC Iron Saturation Ferritin Total Bilirubin 0.50 Direct Bilirubin 0.13 AST 59 H ALT 33 Alkaline Phosphatase 124 H Total Protein 6.5 Albumin 2.9 L Globulin 3.6 Albumin/Globulin Ratio TSH 0.12 L Free T4 Free T3 pg/dL Cortisol Urine Color Urine Clarity Urine pH Ur Specific [place] Urine Protein Urine Glucose (UA) Urine Ketones Urine Occult Blood Urine Nitrite Urine Bilirubin Urine Urobilinogen Ur Leukocyte Esterase Urine RBC Urine WBC Ur Squamous Epith Cells Urine Bacteria Urine Mucus Urine Osmolality U Random Total Protein Ur Random Sodium Urine Creatinine Urine Potassium Urine Chloride 04/22/19 04/22/19 04/22/19 18:00 18:00 18:00 WBC RBC Hgb Hct MCV MCH MCHC RDW Std Deviation RDW Coeff of Mandy Plt Count MPV Immature Gran % (Auto) Neut % (Auto) Lymph % (Auto) [place] % (Auto) Eos % (Auto) Baso % (Auto) Absolute Neuts (auto) Absolute Lymphs (auto) Nucleated RBC % Sodium Potassium Chloride Carbon Dioxide Anion Gap BUN Creatinine Estim Creat Clear Calc Est GFR (MDRD) Af Amer Est GFR (MDRD) Non-Af BUN/Creatinine Ratio Glucose Hemoglobin A1c 7.7 H Serum Osmolality 231 L Calcium Phosphorus 3.6 Magnesium Iron TIBC Iron Saturation Ferritin Total Bilirubin Direct Bilirubin AST ALT Alkaline Phosphatase Total Protein Albumin Globulin Albumin/Globulin Ratio TSH Free T4 Free T3 pg/dL Cortisol Urine Color Urine Clarity Urine pH Ur Specific [place] Urine Protein Urine Glucose (UA) Urine Ketones Urine Occult Blood Urine Nitrite Urine Bilirubin Urine Urobilinogen Ur Leukocyte Esterase Urine RBC Urine WBC Ur Squamous Epith Cells Urine Bacteria Urine Mucus Urine Osmolality U Random Total Protein Ur Random Sodium Urine Creatinine Urine Potassium Urine Chloride 04/22/19 04/22/19 04/22/19 18:00 18:52 18:52 WBC RBC Hgb Hct MCV MCH MCHC RDW Std Deviation RDW Coeff of Mandy Plt Count MPV Immature Gran % (Auto) Neut % (Auto) Lymph % (Auto) [place] % (Auto) Eos % (Auto) Baso % (Auto) Absolute Neuts (auto) Absolute Lymphs (auto) Nucleated RBC % Sodium Potassium Chloride Carbon Dioxide Anion Gap BUN Creatinine Estim Creat Clear Calc Est GFR (MDRD) Af Amer Est GFR (MDRD) Non-Af BUN/Creatinine Ratio Glucose Hemoglobin A1c Serum Osmolality Calcium Phosphorus Magnesium Iron 82 TIBC 568 H Iron Saturation 14.4 L Ferritin 32 Total Bilirubin Direct Bilirubin AST ALT Alkaline Phosphatase Total Protein Albumin Globulin Albumin/Globulin Ratio TSH Free T4 Free T3 pg/dL Cortisol Urine Color Urine Clarity Urine pH Ur Specific [place] Urine Protein Urine Glucose (UA) Urine Ketones Urine Occult Blood Urine Nitrite Urine Bilirubin Urine Urobilinogen Ur Leukocyte Esterase Urine RBC Urine WBC Ur Squamous Epith Cells Urine Bacteria Urine Mucus Urine Osmolality 58 U Random Total Protein Ur Random Sodium Urine Creatinine < 13.00 Urine Potassium Urine Chloride 04/22/19 04/22/19 04/22/19 18:52 18:52 18:52 WBC RBC Hgb Hct MCV MCH MCHC RDW Std Deviation RDW Coeff of Mandy Plt Count MPV Immature Gran % (Auto) Neut % (Auto) Lymph % (Auto) [place] % (Auto) Eos % (Auto) Baso % (Auto) Absolute Neuts (auto) Absolute Lymphs (auto) Nucleated RBC % Sodium Potassium Chloride Carbon Dioxide Anion Gap BUN Creatinine Estim Creat Clear Calc Est GFR (MDRD) Af Amer Est GFR (MDRD) Non-Af BUN/Creatinine Ratio Glucose Hemoglobin A1c Serum Osmolality Calcium Phosphorus Magnesium Iron TIBC Iron Saturation Ferritin Total Bilirubin Direct Bilirubin AST ALT Alkaline Phosphatase Total Protein Albumin Globulin Albumin/Globulin Ratio TSH Free T4 Free T3 pg/dL Cortisol Urine Color Yellow Urine Clarity Clear Urine pH 7.0 Ur Specific [place] 1.005 Urine Protein 100 H Urine Glucose (UA) Normal Urine Ketones Negative Urine Occult Blood 150 H Urine Nitrite Negative Urine Bilirubin Negative Urine Urobilinogen Normal Ur Leukocyte Esterase Negative Urine RBC 0 SEEN Urine WBC 0 SEEN Ur Squamous Epith Cells 0 SEEN Urine Bacteria 0 SEEN Urine Mucus 0 SEEN Urine Osmolality U Random Total Protein Ur Random Sodium 11 Urine Creatinine Urine Potassium 2.0 Urine Chloride < 10 04/22/19 04/22/19 04/23/19 18:52 20:31 01:51 WBC RBC Hgb Hct MCV MCH MCHC RDW Std Deviation RDW Coeff of Mandy Plt Count MPV Immature Gran % (Auto) Neut % (Auto) Lymph % (Auto) [place] % (Auto) Eos % (Auto) Baso % (Auto) Absolute Neuts (auto) Absolute Lymphs (auto) Nucleated RBC % Sodium 114 L* 117 L* Potassium 3.1 L 3.0 L Chloride 79 L 84 L Carbon Dioxide 28.0 23.0 Anion Gap 7 10 BUN 9 9 Creatinine 0.76 0.70 Estim Creat Clear Calc 66.44 72.13 Est GFR (MDRD) Af Amer 105 115 Est GFR (MDRD) Non-Af 87 95 BUN/Creatinine Ratio 11.8 12.8 Glucose 126 H 87 Hemoglobin A1c Serum Osmolality Calcium 7.8 L 8.0 L Phosphorus Magnesium Iron TIBC Iron Saturation Ferritin Total Bilirubin Direct Bilirubin AST ALT Alkaline Phosphatase Total Protein Albumin Globulin Albumin/Globulin Ratio TSH Free T4 1.24 Free T3 pg/dL 2.8 Cortisol Urine Color Urine Clarity Urine pH Ur Specific [place] Urine Protein Urine Glucose (UA) Urine Ketones Urine Occult Blood Urine Nitrite Urine Bilirubin Urine Urobilinogen Ur Leukocyte Esterase Urine RBC Urine WBC Ur Squamous Epith Cells Urine Bacteria Urine Mucus Urine Osmolality U Random Total Protein 187.2 H Ur Random Sodium Urine Creatinine Urine Potassium Urine Chloride 04/23/19 04/23/19 04/23/19 06:40 06:40 06:40 WBC 8.3 RBC 3.91 L Hgb 11.1 L Hct 30.1 L MCV 77.0 L MCH 28.4 MCHC 36.9 H RDW Std Deviation 34.4 L RDW Coeff of Mandy 12.5 Plt Count 209 MPV 9.1 Immature Gran % (Auto) 0.400 Neut % (Auto) 72.7 H Lymph % (Auto) 16.1 L [place] % (Auto) 9.2 Eos % (Auto) 1.4 Baso % (Auto) 0.2 Absolute Neuts (auto) 6.0 Absolute Lymphs (auto) 1.34 Nucleated RBC % 0 Sodium 122 L Potassium 3.7 Chloride 87 L Carbon Dioxide 26.0 Anion Gap 9 BUN 10 Creatinine 0.83 Estim Creat Clear Calc 60.83 Est GFR (MDRD) Af Amer 95 Est GFR (MDRD) Non-Af 78 BUN/Creatinine Ratio 12.0 Glucose 94 Hemoglobin A1c Serum Osmolality Calcium 8.1 L Phosphorus 2.6 Magnesium 2.7 H Iron TIBC Iron Saturation Ferritin Total Bilirubin 0.30 Direct Bilirubin AST 61 H ALT 38 Alkaline Phosphatase 124 H Total Protein 6.3 L Albumin 2.8 L Globulin 3.5 Albumin/Globulin Ratio 0.8 L TSH Free T4 Free T3 pg/dL Cortisol Pending Urine Color Urine Clarity Urine pH Ur Specific [place] Urine Protein Urine Glucose (UA) Urine Ketones Urine Occult Blood Urine Nitrite Urine Bilirubin Urine Urobilinogen Ur Leukocyte Esterase Urine RBC Urine WBC Ur Squamous Epith Cells Urine Bacteria Urine Mucus Urine Osmolality U Random Total Protein Ur Random Sodium Urine Creatinine Urine Potassium Urine Chloride POC Glucose 04/23/19 04/22/19 06:35 21:56 POC Glucose 96 100 Assessment/Plan All Active Problems History of type 2 diabetes mellitus (Acute) History of hypertension (Acute) Dysfunction, bladder (Acute) Hyponatremia (Acute) Metabolic encephalopathy (Acute) Hypokalemia (Acute) Hypomagnesemia (Acute) Nausea vomiting and diarrhea (Acute) Low TSH level (Acute) Microcytic anemia (Acute) 1. Acute hyponatremia likely due to profound dehydration with 3 week history of nausea, vomiting, diarrhea, and anorexia, diuretic use along with Veltassa. Patient had a sodium avid state with urine sodium of 11. She has maximally dilute urine which is appropriate in her hyponatremic state. Blood pressure has been stable so doubt adrenal insufficiency. Cortisol level ordered. Continue with normal saline infusion. We will try to obtain records from the [facility]. 2. Hypochloremic metabolic alkalosis due to dehydration. Urine chloride less than 10. 3. History of diabetes mellitus type 2. Check urine sodium creatinine ratio. 4. History of chronic hyperkalemia presents with hypokalemia on Veltassa and thiazide diuretic at home. Agree with discontinuation. 5. Hypo-Magnesemia likely due to thiazide diuretic and continue with replacement. 6. Hypertension resume home medication. Currently lisinopril on hold. Okay to resume this as well.
[2019-04-23] MEDS: Multivitamins,Therapeutic Tablet 1 TABLET PO (08:55)
[2019-04-23] MEDS: amLODIPine 10 MG Tablet PO (08:55)
[2019-04-23] MEDS: Enoxaparin 40 MG/0.4 ML Syringe SC (08:56)
[2019-04-23] MEDS: Ensure Clear 120 ML Liquid PO (09:51)
[2019-04-23 10:00] LABS: BUN 9 mg/dL (7-18); BUN/Creat Ratio 11.6 RATIO (10-20); Creatinine, Serum 0.78 mg/dL (0.55-1.02); EST Glomerular Filtration Rate 85 mL/min (>60); Est Glom Filt Rate - Afr Amer 103 mL/min (>60); Estimated Creatinine Clearance 64.73 ml/min; Glucose 116 mg/dL (74-106)
[2019-04-23 10:01] LABS: Anion Gap 8 (5-15); Calcium,Total 8.3 mg/dL (8.5-10.1); Chloride 91 mmol/L (98-107); Potassium 3.6 mmol/L (3.5-5.1); Sodium Level 125 mmol/L (136-145)
[2019-04-23] MEDS: Insulin Lispro 100 UNIT/ML INSULN.PEN SC ×3 (11:10→21:02)
[2019-04-23 11:11] LABS: Bedside Glucose 178 mg/dL (70-110)
[2019-04-23] MEDS: Glucerna Shake 120 ML LIQUID PO ×3 (13:09→21:02)
[2019-04-23 16:30] LABS: Bedside Glucose 155 mg/dL (70-110)
--- NOTE | 2019-04-23 19:32 | PCM.PROGNOTE ---
Patient Problems: Active and Suspected Problems Hyponatremia (Acute) Metabolic encephalopathy (Acute) Hypokalemia (Acute) Hypomagnesemia (Acute) Nausea vomiting and diarrhea (Acute) Low TSH level (Acute) Microcytic anemia (Acute) Subjective: All events of the past 24 hours of been reviewed. She has been afebrile since admission. Vital signs are stable. She is 100% saturated on room air. Telemetry shows normal sinus rhythm with no significant ectopy Fluid balance on 04/22/2019 was +1100 All lab was personally reviewed. Hemoglobin is 11.1 today and white blood cell count and platelets are within normal limits. The sodium is up to 122 from 108 at admission. BUN is 10 and creatinine is 0.83. Phosphorus is normal, magnesium is 2.7. T4 and T3 are within normal limits. TSH was low at 0.12. A.m. cortisol is normal. Fractional excretion of sodium is less than 1%. Blood sugars are adequately controlled. I reviewed Dr. Reynaga's consult. She feels the acute hyponatremia is likely due to profound dehydration. She agrees with discontinuation of Veltassa and chlorthalidone. Okay to resume lisinopril. She denies nausea, vomiting, diarrhea, abdominal pain today. She is requesting an increase in her diet. Objective: PHYSICAL EXAM: GENERAL: Much more alert alert, oriented X 3, Cooperative, NAD ORAL: Dry mucosa, no mucosal lesions NECK: No JVD, supple, trachea midline LUNGS: CTA, symmetric chest expansion, no rhonchi, no wheezes, no Rales HEART: RRR, Normal S1 and S2, no rub, no gallop, soft systolic murmur ABDOMEN: soft, NT, ND, BS present, no guarding with palpation EXTREMITIES: no edema, no cyanosis, no calf tenderness SKIN: No rashes, no breakdown NEUROLOGIC: no focal neurologic deficits PSYCH: appropriate, normal affect, pleasant - Physical Exam Vital Signs Temp Pulse Resp BP Pulse Ox 97.7 F L 63 16 126/61 H 100 04/23/19 14:40 04/23/19 15:03 04/23/19 14:40 04/23/19 14:40 04/23/19 14:40 Oxygen Delivery Method Room Air Weight: 160 lb 11.472 oz Body Mass Index (BMI) 31.4 Intake and Output for Last 24 Hours 07/04/22/19 04/23/19 23:59 23:59 23:59 Intake Total 1200 / 1200 3505.3 / 3505.3 Output Total 100 / 100 400 / 400 Balance 1100 / 1100 3105.3 / 3105.3 Laboratory Tests Past 24 Hrs 04/22/19 04/22/19 04/22/19 15:37 18:00 18:00 WBC RBC Hgb Hct MCV MCH MCHC RDW Std Deviation RDW Coeff of Mandy Plt Count MPV Immature Gran % (Auto) Neut % (Auto) Lymph % (Auto) [place] % (Auto) Eos % (Auto) Baso % (Auto) Absolute Neuts (auto) Absolute Lymphs (auto) Nucleated RBC % Sodium Potassium Chloride Carbon Dioxide Anion Gap BUN Creatinine Estim Creat Clear Calc Est GFR (MDRD) Af Amer Est GFR (MDRD) Non-Af BUN/Creatinine Ratio Glucose Serum Osmolality 231 L Calcium Phosphorus Magnesium Iron 82 TIBC 568 H Iron Saturation 14.4 L Ferritin 32 Total Bilirubin AST ALT Alkaline Phosphatase Total Protein Albumin Globulin Albumin/Globulin Ratio Free T4 Free T3 pg/dL Cortisol Urine Osmolality U Random Total Protein Urine Potassium Urine Chloride Thyroglobulin Antibody Pending Thyroid Peroxidase Ab Pending 04/22/19 04/22/19 04/22/19 18:52 18:52 18:52 WBC RBC Hgb Hct MCV MCH MCHC RDW Std Deviation RDW Coeff of Mandy Plt Count MPV Immature Gran % (Auto) Neut % (Auto) Lymph % (Auto) [place] % (Auto) Eos % (Auto) Baso % (Auto) Absolute Neuts (auto) Absolute Lymphs (auto) Nucleated RBC % Sodium Potassium Chloride Carbon Dioxide Anion Gap BUN Creatinine Estim Creat Clear Calc Est GFR (MDRD) Af Amer Est GFR (MDRD) Non-Af BUN/Creatinine Ratio Glucose Serum Osmolality Calcium Phosphorus Magnesium Iron TIBC Iron Saturation Ferritin Total Bilirubin AST ALT Alkaline Phosphatase Total Protein Albumin Globulin Albumin/Globulin Ratio Free T4 Free T3 pg/dL Cortisol Urine Osmolality 58 U Random Total Protein 187.2 H Urine Potassium 2.0 Urine Chloride < 10 Thyroglobulin Antibody Thyroid Peroxidase Ab 04/22/19 04/23/19 04/23/19 20:31 01:51 06:40 WBC RBC Hgb Hct MCV MCH MCHC RDW Std Deviation RDW Coeff of Mandy Plt Count MPV Immature Gran % (Auto) Neut % (Auto) Lymph % (Auto) [place] % (Auto) Eos % (Auto) Baso % (Auto) Absolute Neuts (auto) Absolute Lymphs (auto) Nucleated RBC % Sodium 114 L* 117 L* 122 L Potassium 3.1 L 3.0 L 3.7 Chloride 79 L 84 L 87 L Carbon Dioxide 28.0 23.0 26.0 Anion Gap 7 10 9 BUN 9 9 10 Creatinine 0.76 0.70 0.83 Estim Creat Clear Calc 66.44 72.13 60.83 Est GFR (MDRD) Af Amer 105 115 95 Est GFR (MDRD) Non-Af 87 95 78 BUN/Creatinine Ratio 11.8 12.8 12.0 Glucose 126 H 87 94 Serum Osmolality Calcium 7.8 L 8.0 L 8.1 L Phosphorus 2.6 Magnesium 2.7 H Iron TIBC Iron Saturation Ferritin Total Bilirubin 0.30 AST 61 H ALT 38 Alkaline Phosphatase 124 H Total Protein 6.3 L Albumin 2.8 L Globulin 3.5 Albumin/Globulin Ratio 0.8 L Free T4 1.24 Free T3 pg/dL 2.8 Cortisol Urine Osmolality U Random Total Protein Urine Potassium Urine Chloride Thyroglobulin Antibody Thyroid Peroxidase Ab 04/23/19 04/23/19 04/23/19 06:40 06:40 09:30 WBC 8.3 RBC 3.91 L Hgb 11.1 L Hct 30.1 L MCV 77.0 L MCH 28.4 MCHC 36.9 H RDW Std Deviation 34.4 L RDW Coeff of Mandy 12.5 Plt Count 209 MPV 9.1 Immature Gran % (Auto) 0.400 Neut % (Auto) 72.7 H Lymph % (Auto) 16.1 L [place] % (Auto) 9.2 Eos % (Auto) 1.4 Baso % (Auto) 0.2 Absolute Neuts (auto) 6.0 Absolute Lymphs (auto) 1.34 Nucleated RBC % 0 Sodium 125 L Potassium 3.6 Chloride 91 L Carbon Dioxide 26.0 Anion Gap 8 BUN 9 Creatinine 0.78 Estim Creat Clear Calc 64.73 Est GFR (MDRD) Af Amer 103 Est GFR (MDRD) Non-Af 85 BUN/Creatinine Ratio 11.6 Glucose 116 H Serum Osmolality Calcium 8.3 L Phosphorus Magnesium Iron TIBC Iron Saturation Ferritin Total Bilirubin AST ALT Alkaline Phosphatase Total Protein Albumin Globulin Albumin/Globulin Ratio Free T4 Free T3 pg/dL Cortisol 11.80 Urine Osmolality U Random Total Protein Urine Potassium Urine Chloride Thyroglobulin Antibody Thyroid Peroxidase Ab POC Glucose 04/23/19 04/23/19 04/23/19 16:26 11:06 06:35 POC Glucose 155 H 178 H 96 04/22/19 21:56 POC Glucose 100 Medical Necessity - Tobacco Use Smoking Status: Former smoker Tobacco Use: Non-smoker Assessment/Plan All Active Problems History of type 2 diabetes mellitus (Acute) History of hypertension (Acute) Dysfunction, bladder (Acute) Hyponatremia (Acute) Metabolic encephalopathy (Acute) Hypokalemia (Acute) Hypomagnesemia (Acute) Nausea vomiting and diarrhea (Acute) Low TSH level (Acute) Microcytic anemia (Acute) Impressions 1. Severe hyponatremia 2. Hypokalemia 3. Metabolic encephalopathy 4. Microcytic anemia-with iron studies consistent with iron deficiency 5. Uncontrolled hypertension-likely secondary to not taking her medications for the past week due to persistent nausea/vomiting 6. 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 Recently started on Veltassa for hyperkalemia and she associates the N/V/loose stools with this 7. Diabetic retinopathy 8. Restless leg syndrome 9. Obesity 10. Hypomagnesemia 11. Hyperlipidemia 12. Decreased TSH with normal T3 and T4 consistent with probable subclinical hyperthyroidism Continue IV normal saline Blood pressure is adequately controlled for the time being Restart lisinopril at 5 mg daily for its renal protective effects in diabetics with known history of proteinuria Recheck lab in the a.m. Advance diet to carbohydrate controlled-should be on a 1600-calorie diet to promote weight loss Antithyroid antibodies are pending. Code Visit Inpatient E&M: 08563 Subs Hosp L2
[2019-04-23] MEDS: Atorvastatin Calcium 40 MG Tablet PO (21:02)
[2019-04-23] MEDS: Gabapentin 600 MG Tablet PO (21:02)
[2019-04-24] VITALS (8 sets, daily range): BP systolic 138–157; BP diastolic 65–84; PULSE 61–73; RESP 16–18; TEMP 36.4–36.9; O2SAT 95–100
[2019-04-24 02:36] LABS: Bedside Glucose 252 mg/dL (70-110)
[2019-04-24 07:01] LABS: Hematocrit 25.6 % (37-47); Hemoglobin 8.9 g/dL (12.0-15.0)
[2019-04-24 07:24] LABS: Anion Gap 9 (5-15); BUN 15 mg/dL (7-18); BUN/Creat Ratio 18.1 RATIO (10-20); Calcium,Total 7.9 mg/dL (8.5-10.1); Chloride 103 mmol/L (98-107); Creatinine, Serum 0.83 mg/dL (0.55-1.02); EST Glomerular Filtration Rate 79 mL/min (>60); Est Glom Filt Rate - Afr Amer 95 mL/min (>60); Estimated Creatinine Clearance 60.83 ml/min; Glucose 101 mg/dL (74-106); Potassium 3.9 mmol/L (3.5-5.1); Sodium Level 136 mmol/L (136-145)
[2019-04-24 08:06] LABS: Bedside Glucose 105 mg/dL (70-110)
[2019-04-24] MEDS: Multivitamins,Therapeutic Tablet 1 TABLET PO (08:18)
[2019-04-24] MEDS: 0.9% Normal Saline 1,000 ML 100 ML IV (08:18)
[2019-04-24] MEDS: amLODIPine 10 MG Tablet PO (09:32)
[2019-04-24] MEDS: Lisinopril 5 MG Tablet PO (09:32)
[2019-04-24] MEDS: Enoxaparin 40 MG/0.4 ML Syringe SC (09:32)
[2019-04-24] MEDS: Glucerna Shake 120 ML LIQUID PO ×2 (09:39→15:10)
--- NOTE | 2019-04-24 11:16 | PN.RENAL_ITS ---
Patient Problems: Active and Suspected Problems Hyponatremia (Acute) Metabolic encephalopathy (Acute) Hypokalemia (Acute) Hypomagnesemia (Acute) Nausea vomiting and diarrhea (Acute) Low TSH level (Acute) Microcytic anemia (Acute) Subjective: sodium improved to normal. Holding Thiazide for now. May consider adding HCTZ if she has RTA type 4. Hx hyperkalemia. Potassium stable. Lisinopril resumed for hypertension with hx of proteinuria. - Physical Exam General: Alert, Oriented x3, Cooperative Lungs: Clear to auscultation Cardiovascular: Regular rate Abdomen: Bowel Sounds Present, Soft Extremities: No cyanosis, No edema Vital Signs Temp Pulse Resp BP Pulse Ox 97.6 F L 68 16 150/72 H 95 04/24/19 08:35 04/24/19 08:35 04/24/19 08:35 04/24/19 08:35 04/24/19 08:35 Oxygen Delivery Method Room Air Weight: 72.9 kg Body Mass Index (BMI) 31.4 Intake and Output for Last 24 Hours 04/22/19 04/23/19 04/24/19 23:59 23:59 23:59 Intake Total 1200 / 1200 4557.3 / 4557.3 1046 / 1046 Output Total 100 / 100 1025 / 1025 Balance 1100 / 1100 3532.3 / 3532.3 1046 / 1046 Laboratory Tests Past 24 Hrs 04/24/19 04/24/19 06:27 06:27 Hgb 8.9 L Hct 25.6 L Sodium 136 Potassium 3.9 Chloride 103 Carbon Dioxide 24.0 Anion Gap 9 BUN 15 Creatinine 0.83 Estim Creat Clear Calc 60.83 Est GFR (MDRD) Af Amer 95 Est GFR (MDRD) Non-Af 79 BUN/Creatinine Ratio 18.1 Glucose 101 Calcium 7.9 L POC Glucose 04/24/19 04/23/19 04/23/19 06:36 21:01 16:26 POC Glucose 105 252 H 155 H Medical Necessity - Tobacco Use Smoking Status: Former smoker Tobacco Use: Non-smoker Assessment/Plan All Active Problems History of type 2 diabetes mellitus (Acute) History of hypertension (Acute) Dysfunction, bladder (Acute) Hyponatremia (Acute) Metabolic encephalopathy (Acute) Hypokalemia (Acute) Hypomagnesemia (Acute) Nausea vomiting and diarrhea (Acute) Low TSH level (Acute) Microcytic anemia (Acute) 1. Acute hyponatremia resolved with iv fluids. Continue to hold thiazide for now. 2. Hypochloremic metabolic alkalosis due to dehydration resolved with NSS. 3. History of diabetes mellitus type 2. resume ACEI for proteinuria 4. History of chronic hyperkalemia presents with hypokalemia on Veltassa and thiazide diuretic at home. Continue to hold veltassa. May need to switch to ARB if has hyperkalemia. 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 Consider HCTZ. 5. Hypo-Magnesemia likely due to thiazide diuretic and continue with replacement. 6. 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 DW primary service
[2019-04-24 11:41] LABS: Bedside Glucose 176 mg/dL (70-110)
[2019-04-24] MEDS: Insulin Lispro 100 UNIT/ML INSULN.PEN SC ×2 (12:15→16:42)
[2019-04-24 14:08] LABS: Thyroid Peroxidase AB < 6 IU/mL (0-34)
[2019-04-24 16:51] LABS: Bedside Glucose 168 mg/dL (70-110)
--- NOTE | 2019-04-24 16:53 | PCM.DC ---
- Discharge Diagnoses Current Active Problems: Current Active and Chronic Problems Hyponatremia (Acute) Metabolic encephalopathy (Acute) Hyperkalemia (Chronic) Hypokalemia (Acute) Diabetic retinopathy (Chronic) Obesity (BMI 30.0-34.9) (Chronic) Hypomagnesemia (Acute) Nausea vomiting and diarrhea (Acute) Low TSH level (Acute) Hyperlipidemia (Chronic) Microcytic anemia (Acute) Proteinuria (Chronic) Asthma (Chronic) Depression (Chronic) GERD (gastroesophageal reflux disease) (Chronic) Restless leg syndrome (Chronic) You will use the following diet at home:: Calorie/Carbohydrate Controlled (specify 1200, 1400, etc), Cardiac Your food should be the consistency of: Regular Your liquids should be the consistency of: Regular/Thin Discharge Activity: Return to Normal Activity Call your doctor if you observe: Fever of 101 or Higher, Inability to urinate, Shortness of breath, Dizziness, Fainting spells, Swelling in the ankles, Chest pain, - - Recurrent nausea, vomiting, diarrhea Additional Instructions: You were very dehydrated when you came to the hospital and this caused your sodium to drop very low. A low sodium causes confusion, fatigue, nausea, vomiting, weakness and can even cause seizures. Your sodium on the day of discharge is normal. the potassium is normal on the day of discharge and you have actually had to have supplemental potassium. We have stopped the Veltassa and the Lisinopril. Dr. Reynaga, the kidney doctor, recommended we use Valsartan for your BP since it does not tend to increase the potassium as much. We have also discontinued the Chlorthalidone.....it is a water pill and it is very long acting and more likely to cause a low sodium. You will be on a new medication in the same class as Chlorthalidone but, not as long acting. If your dad does not want to drive the whole way to [place] to see a kidney doctor then Dr. Reynaga would be happy to care for you in [place]. You will need to have blood work done in a few days. I am giving you a lab slip and you should have it done on Saturday. The results will be sent to Dr. Pedraza. You will need to see Dr. Pedraza early next week. Pending Tests on Discharge: Antithyroid antibodies Allergies/Adverse Reactions: Allergies No Known Allergies Allergy (Verified 04/22/19 15:22) Medications to take at Discharge Gabapentin [Neurontin] 600 mg PO QHS 05/27/16 Albuterol Inhaler [Ventolin Hfa] 2 puff INHALATION Q4H PRN PRN 04/16/19 Amlodipine Besylate 10 mg PO DAILY 04/16/19 Atorvastatin Calcium 40 mg PO DAILY 04/16/19 Bupropion HCl [Bupropion Xl] 300 mg PO DAILY 04/16/19 Cholecalciferol (VIT D3) [Vitamin D3] 1,000 unit PO DAILY 04/16/19 Lysine 1,000 mg PO DAILY 04/16/19 Multivitamin [Once Daily] 1 tab PO DAILY 04/16/19 Erving-3 Fatty Acids/Fish Oil [Erving 3 1,000 mg Softgel] 2 cap PO DAILY 04/16/19 Ranitidine [Zantac] 150 mg PO BID 04/16/19 Sodium Bicarbonate 1,300 mg PO DAILY 04/16/19 Estrogen,Con/M-Progest Acet [Prempro 0.625-2.5 MG Tablet] 1 tab PO DAILY 04/22/19 Ferrous Sulfate 325 mg PO DAILY 04/22/19 Meclizine HCl 25 mg PO BID PRN PRN 04/22/19 Sodium Bicarbonate 650 mg PO DAILY 04/22/19 metFORMIN (XR) [Glucophage Xr] 1,000 mg PO BID 04/22/19 Hydrochlorothiazide [Hctz] 25 mg PO DAILY #30 tab 04/24/19 Valsartan 160 mg PO DAILY #30 tab 04/24/19 The following prescriptions were given: Hydrochlorothiazide [Hctz] 25 mg PO DAILY #30 tab Transmission Status: Pending to [facility] #30 Valsartan 160 mg PO DAILY #30 tab Transmission Status: Pending to [facility] #30 Primary Care Physician: Colin Pedraza [Primary Care Provider] - Please follow up with your Primary Care Physician in: In 3-5 days Test Results: Test results from this visit will be discussed in further detail at your follow-up appointment, if applicable. Proposed Discharge Date: 04/24/19
--- NOTE | 2019-04-24 17:28 | PCM.DC.SUM ---
Discharge Date and Diagnosis - Problem List Patient Problems: Active and Suspected Problems Dehydration (Acute) Subclinical hypothyroidism (Acute) Date of Admission: 04/22/19 Date of Discharge: 04/24/19 - Primary Discharge Diagnosis Active and Suspected Problems Severe hyponatremia Dehydration (Acute) Metabolic encephalopathy (Acute) Hypokalemia (Acute) Hypomagnesemia (Acute) Nausea vomiting and diarrhea (Acute) Subclinical hypothyroidism (Acute) - Secondary Discharge Diagnosis Chronic Problems Iron deficiency anemia (Chronic) History of type 2 diabetes mellitus (Chronic) History of hypertension (Chronic) Hyperkalemia (Chronic) Diabetic retinopathy (Chronic) Obesity (BMI 30.0-34.9) (Chronic) Hyperlipidemia (Chronic) Proteinuria (Chronic) Asthma (Chronic) Depression (Chronic) GERD (gastroesophageal reflux disease) (Chronic) Restless leg syndrome (Chronic) Hospital Course and Treatment Imaging Results: Laboratory Results - last 24 hr 04/23/19 04/24/19 04/24/19 21:01 06:27 06:27 Hgb 8.9 L Hct 25.6 L Sodium 136 Potassium 3.9 Chloride 103 Carbon Dioxide 24.0 Anion Gap 9 BUN 15 Creatinine 0.83 Estim Creat Clear Calc 60.83 Est GFR (MDRD) Af Amer 95 Est GFR (MDRD) Non-Af 79 BUN/Creatinine Ratio 18.1 Glucose 101 Calcium 7.9 L POC Glucose 252 H 04/24/19 04/24/19 04/24/19 06:36 11:28 16:39 Hgb Hct Sodium Potassium Chloride Carbon Dioxide Anion Gap BUN Creatinine Estim Creat Clear Calc Est GFR (MDRD) Af Amer Est GFR (MDRD) Non-Af BUN/Creatinine Ratio Glucose Calcium POC Glucose [address] 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 She had not taken any of her prescribed medications for the preceding week due to inability to keep anything down. She had been confused and fatigued recently. Vital signs at presentation to the emergency department were temperature 96.5, blood pressure 168/83, respiratory rate 16 and she was 100% saturated on room air. CBC was significant for a white blood cell count of 11.7 with 84% neutrophils. Hemoglobin was 11.2 with an MCV of 75.5. Platelet count was 219,000. Chemistries showed a low sodium of 108, low potassium at 3.0 and a low chloride at 71. BUN was 9 and the creatinine was 0.76. Calcium was 8.5. Random blood sugar was 97. On PE she was confused and had a hard time answering my questions. Her father provided most of her hx. She was admitted to a monitored bed on PCU and workup for hyponatremia was initiated. BMP's were checked Q 4 H. She follows with a cut off saw operator metal at [facility] and is treated for proteinuria and hyperkalemia. She had recently been started on Veltassa for hyperkalemia and she was taking Chlorthalidone. The serum osmolarity was low at 231 and the urine osmolality was dilute at 58. Urine chloride was less than 10. Fractional excretion of sodium was less than 1%. TSH was low at 0.12 but T4 and T3 were within normal limits. A.m. cortisol was normal. She was seen in consultation by Dr. Ivory Reynaga from nephrology who agreed with discontinuation of Veltassa and chlorthalidone. BMP on the morning after admission showed a sodium of 122 with a chloride of 87. BUN was 10 and the creatinine was 0.83. Normal saline was continued and on 04/24/2019 sodium was 136 with a chloride of 103 and a BUN of 15 with a creatinine of 0.83. Antihypertensives other than amlodipine were held at admission and following rehydration the blood pressures were mildly increased. Dr. Reynaga recommended using an ARB rather than an ERVIN due to less potential for hyperkalemia. She was discharged from the hospital on 04/24/2019 with prescriptions for valsartan 160 mg and hydrochlorothiazide 25 mg. Veltassa and chlorthalidone were discontinued. She will continue her other home medications. She was given a lab slip to obtain a BMP and magnesium on 04/27/2019 and will follow-up with Dr. Colin Pedraza early next week. PHYSICAL EXAM: GENERAL: Much more alert alert, oriented X 3, Cooperative, NAD, sitting in the bedside recliner ORAL: Moist mucosa, no mucosal lesions NECK: No JVD, supple, trachea midline LUNGS: CTA, symmetric chest expansion, no rhonchi, no wheezes, no Rales HEART: RRR, Normal S1 and S2, no rub, no gallop, soft systolic murmur ABDOMEN: soft, NT, ND, BS present, no guarding with palpation EXTREMITIES: no edema, no cyanosis, no calf tenderness SKIN: No rashes, no breakdown NEUROLOGIC: no focal neurologic deficits PSYCH: appropriate, normal affect, pleasant This note was generated with [employer] dictation software. It may contain incorrect words, spelling, and punctuation that were not noted in checking the note before signing. Patient Problems: Active and Suspected Problems Dehydration (Acute) Subclinical hypothyroidism (Acute) - Physical Exam Vital Signs Temp Pulse Resp BP Pulse Ox 98.1 F 70 18 157/84 H 100 04/24/19 16:35 04/24/19 16:35 04/24/19 16:35 04/24/19 16:35 04/24/19 16:35 Oxygen Delivery Method Room Air Weight: 160 lb 11.472 oz Body Mass Index (BMI) 31.4 Intake and Output for Last 24 Hours 04/22/19 04/23/19 04/24/19 23:59 23:59 23:59 Intake Total 1200 / 1200 4557.3 / 4557.3 2705 / 2705 Output Total 100 / 100 1025 / 1025 Balance 1100 / 1100 3532.3 / 3532.3 2705 / 2705 Laboratory Tests Past 24 Hrs 04/24/19 04/24/19 06:27 06:27 Hgb 8.9 L Hct 25.6 L Sodium 136 Potassium 3.9 Chloride 103 Carbon Dioxide 24.0 Anion Gap 9 BUN 15 Creatinine 0.83 Estim Creat Clear Calc 60.83 Est GFR (MDRD) Af Amer 95 Est GFR (MDRD) Non-Af 79 BUN/Creatinine Ratio 18.1 Glucose 101 Calcium 7.9 L POC Glucose 04/24/19 04/24/19 04/24/19 16:39 11:28 06:36 POC Glucose 168 H 176 H 105 04/23/19 21:01 POC Glucose 252 H Discharge Activity: Return to Normal Activity Call your doctor if you observe: Fever of 101 or Higher, Inability to urinate, Shortness of breath, Dizziness, Fainting spells, Swelling in the ankles, Chest pain, - - Recurrent nausea, vomiting, diarrhea Home Medications: Medications to take at Discharge Gabapentin [Neurontin] 600 mg PO QHS 05/27/16 Albuterol Inhaler [Ventolin Hfa] 2 puff INHALATION Q4H PRN PRN 04/16/19 Amlodipine Besylate 10 mg PO DAILY 04/16/19 Atorvastatin Calcium 40 mg PO DAILY 04/16/19 Bupropion HCl [Bupropion Xl] 300 mg PO DAILY 04/16/19 Cholecalciferol (VIT D3) [Vitamin D3] 1,000 unit PO DAILY 04/16/19 Lysine 1,000 mg PO DAILY 04/16/19 Multivitamin [Once Daily] 1 tab PO DAILY 04/16/19 Sharon-3 Fatty Acids/Fish Oil [Sharon 3 1,000 mg Softgel] 2 cap PO DAILY 04/16/19 Ranitidine [Zantac] 150 mg PO BID 04/16/19 Sodium Bicarbonate 1,300 mg PO DAILY 04/16/19 Estrogen,Con/M-Progest Acet [Prempro 0.625-2.5 MG Tablet] 1 tab PO DAILY 04/22/19 Ferrous Sulfate 325 mg PO DAILY 04/22/19 Meclizine HCl 25 mg PO BID PRN PRN 04/22/19 Sodium Bicarbonate 650 mg PO DAILY 04/22/19 metFORMIN (XR) [Glucophage Xr] 1,000 mg PO BID 04/22/19 Hydrochlorothiazide [Hctz] 25 mg PO DAILY #30 tab 04/24/19 Valsartan 160 mg PO DAILY #30 tab 04/24/19 Following Prescrptions Were Given to Patient: Hydrochlorothiazide [Hctz] 25 mg PO DAILY #30 tab Transmission Status: Received by [facility] #30 Valsartan 160 mg PO DAILY #30 tab Transmission Status: Received by [facility] #30 Other Amb Orders: Basic Metabolic Profile (BMP) Time Frame: 04/27/19, Facility: [facility], Location: Laboratory Magnesium Time Frame: 04/27/19, Facility: [facility], Location: Laboratory Primary Care Physician: Colin Pedraza [Primary Care Provider] - Please follow up with your Primary Care Physician in: In 3-5 days Disposition: Home Minutes spent on discharge:: 35 Patient Condition:: Good Medical Necessity - Tobacco Use Smoking Status: Former smoker Tobacco Use: Non-smoker Meaningful Use Info Meaningful Use Diagnoses (Choose all that apply): None applicable Code Visit Inpatient E&M: 36539 Disch Hosp
[2019-04-27 10:20] LABS: Thyroglobulin Antibody < 1.0 IU/mL (0.0-0.9)
== END 2019-04-24 18:17 | disposition home or self-care (01) | DRG 422 ==
LOC: ED 15:52 → PCU 17:04
PROVIDERS: Internal Medicine Nephrology; Admitting Provider Internal Medicine; Emergency Provider Emergency Medicine; Family Provider Student in an Organized Health Care Education/Training Program; PCP Student in an Organized Health Care Education/Training Program; Referring Provider Internal Medicine; Visit Provider Internal Medicine
DX: E86.0 Dehydration (principal); E87.6 Hypokalemia; E87.3 Alkalosis; E87.8 Other disorders of electrolyte and fluid balance, not elsewhere classified; D50.9 Iron deficiency anemia, unspecified; I12.9 Hypertensive chronic kidney disease with stage 1 through stage 4 chronic kidney disease, or unspecified chronic kidney disease; N18.9 Chronic kidney disease, unspecified; T50.2X5A Adverse effect of carbonic-anhydrase inhibitors, benzothiadiazides and other diuretics, initial encounter; E87.5 Hyperkalemia; G25.81 Restless legs syndrome; E66.9 Obesity, unspecified; E83.42 Hypomagnesemia; E78.5 Hyperlipidemia, unspecified; E11.319 Type 2 diabetes mellitus with unspecified diabetic retinopathy without macular edema; J45.909 Unspecified asthma, uncomplicated; Z68.31 Body mass index [BMI] 31.0-31.9, adult; E03.9 Hypothyroidism, unspecified; Z85.828 Personal history of other malignant neoplasm of skin; F32.9 Major depressive disorder, single episode, unspecified; R80.9 Proteinuria, unspecified
CPT/HCPCS: 36415; 80048; 80053; 80076; 81001; 82436; 82533; 82570; 82728; 82962; 83036; 83540; 83550; 83735; 83930; 83935; 84100; 84133; 84156; 84300; 84439; 84443; 84481; 85014; 85018; 85025; 86376; 86800; 87086; 97802; 99284; J7030; J7040; A4216; J2405

== ENCOUNTER → 2020-03-01 12:10 | Outpatient (CLI) | payer MEDICAID, SELFPAY ==
[2019-04-22 17:46] VITALS: BMI 31.4
[2020-03-01 12:58] LABS: Potassium 5.2 mmol/L (3.5-5.1)
== END ==
PROVIDERS: PCP Student in an Organized Health Care Education/Training Program; Visit Provider Internal Medicine Nephrology
DX: E87.5 Hyperkalemia (principal)
CPT/HCPCS: 36415; 84132

== ENCOUNTER → 2020-05-03 18:14 | Outpatient (CLI) | payer MEDICAID, SELFPAY ==
[2019-04-22 17:46] VITALS: BMI 31.4
== END ==
PROVIDERS: PCP Student in an Organized Health Care Education/Training Program; Referring Provider Nurse Practitioner Family; Visit Provider Nurse Practitioner Family
DX: Z20.828 Contact with and (suspected) exposure to other viral communicable diseases (principal)
CPT/HCPCS: 87635; 94799; U0003

== ENCOUNTER → 2021-09-11 10:29 | Outpatient (CLI) | payer MEDICAID, SELFPAY ==
[2021-09-11 11:23] LABS: Albumin, Serum 2.4 g/dL (3.2-5.0); BUN 22 mg/dL (7-18); BUN/Creat Ratio 9.9 RATIO (10-20); Calcium,Total 9.7 mg/dL (8.5-10.1); Chloride 107 mmol/L (98-107); Creatinine, Serum 2.22 mg/dL (0.55-1.02); EST Glomerular Filtration Rate 25 mL/min (>60); Est Glom Filt Rate - Afr Amer 30 mL/min (>60); Glucose 90 mg/dL (74-106); Phosphorus 3.8 mg/dL (2.5-4.9); Potassium 5.4 mmol/L (3.5-5.1); Sodium Level 139 mmol/L (136-145)
[2021-09-11 11:24] LABS: PTHIN 42.7 pg/mL (18.4-80.1)
== END ==
PROVIDERS: PCP Student in an Organized Health Care Education/Training Program; Referring Provider Internal Medicine Nephrology; Visit Provider Internal Medicine Nephrology
DX: N18.32 Chronic kidney disease, stage 3b (principal)
CPT/HCPCS: 36415; 80069; 83970

== ENCOUNTER 2021-10-23 10:16 | Outpatient (CLI) | payer MEDICAID, SELFPAY ==
[2021-10-23 11:42] LABS: Hematocrit 32.5 % (37-47); Hemoglobin 9.8 g/dL (12.0-15.0); Mean Corp Hgb Conc 30.2 g/dL (32-36); Mean Corpuscular Hgb 26.6 pg (27.0-32.0); Mean Corpuscular Volume 88.1 fL (81-99); Mean Platelet Vol. 10.7 fl (6.2-12.0); Platelet Count 285 K/mm3 (150-450); RBC Distribution Width SD 41.7 fl (35.1-43.9); Red Blood Count 3.69 M/mm3 (4.2-5.4); White Blood Count 8.2 K/mm3 (4.4-11.0)
[2021-10-23 12:17] LABS: PTHIN 45.9 pg/mL (18.4-80.1)
[2021-10-23 12:23] LABS: Albumin, Serum 2.4 g/dL (3.2-5.0); BUN 35 mg/dL (7-18); BUN/Creat Ratio 16.9 RATIO (10-20); Calcium,Total 9.6 mg/dL (8.5-10.1); Chloride 111 mmol/L (98-107); Creatinine, Serum 2.07 mg/dL (0.55-1.02); EST Glomerular Filtration Rate 27 mL/min (>60); Est Glom Filt Rate - Afr Amer 33 mL/min (>60); Glucose 146 mg/dL (74-106); Phosphorus 3.5 mg/dL (2.5-4.9); Potassium 4.8 mmol/L (3.5-5.1); Sodium Level 138 mmol/L (136-145)
== END 2021-10-23 23:59 | disposition short-term general hospital (02) ==
LOC: LAB 10:20
PROVIDERS: PCP Student in an Organized Health Care Education/Training Program; Referring Provider Internal Medicine Nephrology; Visit Provider Internal Medicine Nephrology
DX: N18.32 Chronic kidney disease, stage 3b (principal)
CPT/HCPCS: 36415; 80069; 83970; 85027

== ENCOUNTER → 2022-01-26 | Outpatient (CLI) | payer MEDICAID, SELFPAY ==
[2022-01-26 16:01] LABS: Anion Gap 7 (5-15); BUN 31 mg/dL (7-18); BUN/Creat Ratio 11.7 RATIO (10-20); Calcium,Total 8.5 mg/dL (8.5-10.1); Chloride 108 mmol/L (98-107); Creatinine, Serum 2.64 mg/dL (0.55-1.02); EST Glomerular Filtration Rate 20 mL/min (>60); Est Glom Filt Rate - Afr Amer 25 mL/min (>60); Glucose 74 mg/dL (74-106); Potassium 4.3 mmol/L (3.5-5.1); Sodium Level 136 mmol/L (136-145)
== END | disposition home or self-care (01) ==
LOC: LAB 14:31
PROVIDERS: PCP Student in an Organized Health Care Education/Training Program; Visit Provider Internal Medicine Nephrology
DX: E87.5 Hyperkalemia (principal)
CPT/HCPCS: 80048; 36415

== ENCOUNTER → 2022-01-26 | Outpatient (CLI) | payer MEDICAID, SELFPAY ==
--- NOTE | 2022-01-26 14:43 | US_ITS ---
EXAM: US RETROPERITONEAL LIMITED, RENAL CLINICAL INDICATION: HYPERKALEMIA TECHNIQUE: Limited grayscale and color Doppler sonographic evaluation of the retroperitoneum was performed. This report was created using [employer] report generation technology. COMPARISON: None. FINDINGS: RIGHT KIDNEY: Right kidney measures 11.3 cm in length. No hydronephrosis. No shadowing calculus. No perinephric collection is demonstrated. LEFT KIDNEY: Left kidney measures 10.7 cm in length. 2 cm left renal cyst. Increased echogenicity of both kidneys suggestive of medical type parenchymal renal disease. BLADDER: Urinary bladder is normal. US/Kidney and Bladder IMPRESSION: 1. No hydronephrosis. 2. Medical type parenchymal renal disease. Electronically Signed: Robson Delaney MD at 16:56 EDT ,
== END | disposition home or self-care (01) ==
LOC: US 14:39
PROVIDERS: PCP Student in an Organized Health Care Education/Training Program; Visit Provider Internal Medicine Nephrology
DX: E87.5 Hyperkalemia (principal)
CPT/HCPCS: 36415; 76770; 80048

== ENCOUNTER → 2022-02-24 | Outpatient (CLI) | payer MEDICAID, SELFPAY ==
[2022-02-24 10:30] LABS: Hemoglobin 9.6 g/dL (12.0-15.0); Mean Corpuscular Hgb 26.7 pg (27.0-32.0); Mean Corpuscular Volume 86.1 fL (81-99); Mean Platelet Vol. 10.7 fl (6.2-12.0); Platelet Count 253 K/mm3 (150-450); RBC Distribution Width CV 14.6 % (11.6-14.6); White Blood Count 7.4 K/mm3 (4.4-11.0)
[2022-02-24 10:50] LABS: Albumin, Serum 2.2 g/dL (3.2-5.0); BUN 66 mg/dL (7-18); BUN/Creat Ratio 18.5 RATIO (10-20); Calcium,Total 9.3 mg/dL (8.5-10.1); Chloride 107 mmol/L (98-107); Creatinine, Serum 3.57 mg/dL (0.55-1.02); EST Glomerular Filtration Rate 14 mL/min (>60); Est Glom Filt Rate - Afr Amer 17 mL/min (>60); Glucose 88 mg/dL (74-106); Potassium 5.1 mmol/L (3.5-5.1); Sodium Level 134 mmol/L (136-145)
[2022-02-26 07:55] LABS: PTHIN 42.8 pg/mL (18.4-80.1)
== END | disposition home or self-care (01) ==
LOC: LAB 09:32
PROVIDERS: PCP Student in an Organized Health Care Education/Training Program; Visit Provider Internal Medicine Nephrology
DX: N17.9 Acute kidney failure, unspecified (principal); D50.9 Iron deficiency anemia, unspecified
CPT/HCPCS: 36415; 80069; 83970; 85027

== ENCOUNTER → 2022-03-16 | Outpatient (CLI) | payer MEDICAID, SELFPAY | END | disposition home or self-care (01) | LOC: CVS 09:17 | PROVIDERS: PCP Student in an Organized Health Care Education/Training Program; Referring Provider Surgery; Visit Provider Surgery | DX: N18.4 Chronic kidney disease, stage 4 (severe) (principal) | CPT/HCPCS: 93985 ==

== ENCOUNTER 2022-03-28 14:06 | Outpatient (RCR) | payer MEDICAID, SELFPAY | END 2022-04-22 23:59 | LOC: NS 14:06 | PROVIDERS: PCP Student in an Organized Health Care Education/Training Program; Referring Provider Internal Medicine Nephrology; Visit Provider Internal Medicine Nephrology | DX: Z71.3 Dietary counseling and surveillance (principal) | CPT/HCPCS: 97802 ==

== ENCOUNTER 2022-04-02 05:58 | Day surgery (SDC) | payer MEDICAID, SELFPAY ==
--- NOTE | 2022-03-27 09:40 | EKG12_ITS ---
Test Reason : Blood Pressure : / mmHG Vent. Rate : 058 BPM Atrial Rate : 058 BPM P-R Int : 134 ms QRS Dur : 086 ms QT Int : 426 ms P-R-T Axes : 050 056 070 degrees QTc Int : 418 ms Sinus bradycardia Otherwise normal ECG Confirmed by SONIA CORTES, AMISH ([id number]), state editor ZULEMA REECE ([id number]) on 03/28/2022 8:20:23 AM Referred By: Confirmed By:AMISH SCOTT MD
[2022-03-27 10:42] LABS: Hematocrit 27.6 % (37-47); Hemoglobin 8.7 g/dL (12.0-15.0); Mean Corp Hgb Conc 31.5 g/dL (32-36); Mean Corpuscular Hgb 26.8 pg (27.0-32.0); Mean Corpuscular Volume 84.9 fL (81-99); Mean Platelet Vol. 10.7 fl (6.2-12.0); Platelet Count 245 K/mm3 (150-450); RBC Distribution Width CV 13.9 % (11.6-14.6); RBC Distribution Width SD 43.4 fl (35.1-43.9); Red Blood Count 3.25 M/mm3 (4.2-5.4); White Blood Count 8.2 K/mm3 (4.4-11.0)
[2022-03-27 11:18] LABS: Anion Gap 6 (5-15); BUN 58 mg/dL (7-18); BUN/Creat Ratio 11.4 RATIO (10-20); Calcium,Total 9.8 mg/dL (8.5-10.1); Chloride 106 mmol/L (98-107); Creatinine, Serum 5.07 mg/dL (0.55-1.02); EST Glomerular Filtration Rate 10 mL/min (>60); Est Glom Filt Rate - Afr Amer 12 mL/min (>60); Glucose 100 mg/dL (74-106); Potassium 5.2 mmol/L (3.5-5.1); Sodium Level 135 mmol/L (136-145)
[2022-04-02] VITALS (8 sets, daily range): BP systolic 125–155; BP diastolic 61–80; PULSE 60–69; RESP 16; TEMP 36.3–37.1; O2SAT 93–99; BMI 27.6
--- NOTE | 2022-04-02 06:38 | HP.PCM_ITS ---
History and Physical Date of Admission: 04/02/22 Chief Complaint: Consult fistula Director Targeted Marketing Required: No Accompanied by: Father Is patient in pain?: No Medications gabapentin 300 mg capsule 600 mg PO QHS nerve pain 05/27/16 [History Confirmed 03/20/22] albuterol sulfate 90 mcg/actuation aerosol inhaler 2 puff inhalation Q4H PRN PRN Sob &/Or Wheezing 04/16/19 [History Confirmed 03/20/22] amlodipine 10 mg tablet 10 mg PO DAILY bp 04/16/19 [History Confirmed 03/20/22] atorvastatin 40 mg tablet 40 mg PO DAILY cholesterol 04/16/19 [History Confirmed 03/20/22] bupropion HCl 300 mg 24 hr tablet, extended release 300 mg PO DAILY depression 04/16/19 [History Confirmed 03/20/22] cholecalciferol (vitamin D3) 25 mcg (1,000 unit) tablet 1,000 unit PO DAILY supplement 04/16/19 [History Confirmed 03/20/22] lysine 1,000 mg tablet 1,000 mg PO DAILY supplement 04/16/19 [History Confirmed 03/20/22] multivitamin 1 tab PO DAILY supplement 04/16/19 [History Confirmed 03/20/22] omega-3 fatty acids-fish oil 300 mg-1,000 mg capsule 2 cap PO DAILY supplement 04/16/19 [History Confirmed 03/20/22] ranitidine HCl 150 mg tablet 150 mg PO BID gerd 04/16/19 [History Confirmed 03/20/22] sodium bicarbonate 650 mg tablet 1,300 mg PO DAILY acid 04/16/19 [History Confirmed 03/20/22] conj estrogen-medroxyprogesterone 0.625 mg-2.5 mg tablet 1 tab PO DAILY hormone 04/22/19 [History Confirmed 03/20/22] ferrous sulfate 325 mg (65 mg iron) tablet 325 mg PO DAILY supplement 04/22/19 [History Confirmed 03/20/22] meclizine 25 mg tablet 25 mg PO BID PRN PRN motion sickness 04/22/19 [History Confirmed 03/20/22] metformin 500 mg tablet,extended release 24 hr 1,000 mg PO BID dm 04/22/19 [History Confirmed 03/20/22] sodium bicarbonate 650 mg tablet 650 mg PO DAILY acid 04/22/19 [History Confirmed 03/20/22] hydrochlorothiazide 25 mg tablet 25 mg PO DAILY #30 tabs 04/24/19 [Rx Confirmed 03/20/22] valsartan 160 mg tablet 160 mg PO DAILY #30 tabs 04/24/19 [Rx Confirmed 03/20/22] PFSH Surgical History?(Updated 03/20/22 @ 13:09 by Mila Lubin) H/O local excision of skin lesion Social History?(Updated 03/20/22 @ 13:09 by Mila Lubin) Smoking Status:? Former smoker alcohol intake:? never HPI HPI HPI: SILVERIO HOGAN, is a 51 F who presents to the office today for surgical consultation regarding stage IV chronic renal sufficiency.? The patient is referred by Dr. Ivory Reynaga and a written copy of my surgical consult and recommendations will return to her.? The patient is in need of permanent arteriovenous hemodialysis access.? As of February 24, 2022 her white blood cell count was 7.4 with a hemoglobin 9.6 Thorpe crit 31 platelet count 253,000.? BUN was 66 with a creatinine of 3.57 and an estimated GFR of 14.On March 16, 2022 at the [facility] the patient had bilateral extremity vein mapping.? The right forearm cephalic vein is diminutive in the right upper arm cephalic vein also small.? The right upper arm basilic vein is marginal.? The left forearm cephalic vein is very small.? The left upper arm cephalic vein small as well.? Left upper arm basilic vein is marginal.? Bilateral radial arteries are small.? Bilateral brachial arteries are of normal diameter and flow.? Her complicating history is 1 of type 2 diabetes mellitus. The patient's is with her today.? Apparently he did not accompany her to her appointment with Dr. Ivory Reynaga.? He is questioning why any of this needs to be done. The patient is left arm dominant Fortunately her most recent hospitalization was 3 years ago for hyperkalemia but she has not had any hospitalizations since. ROS General General: No weight change, appetite, fatigue, colon cancer, breast cancer or weakness HEENT HEENT: No difficulty swallowing, eye injury, eye surgery, swollen glands or hoarseness Endo Endocrine: Yes diabetes mellitus; No thyroid disease, thyroid cancer, Hair loss, heat intolerance or cold intolerance Skin Skin: No rash or changing moles Breast Breast: No left breast lump, right breast lump, nipple discharge, breast pain, abnormal mammogram, abnormal US or breast enlargement Musc Musculoskeletal: Yes back problems and arthritis; No rheumatoid arthritis, gout or joint pain Cardio Cardiovascular: Yes high blood pressure; No murmur, pacemaker, heart disease, atrial fibrillation, heart attack, heart stent, palpitations, shortness of breat with exertion or chest pain Psych Psychiatric: No depression, anxiety or hearing voices Resp Respiratory: No shortness of breath, Yes sleep apnea, No cough, No COPD, No a sthma, No emphysema and No wheezing Gastro Gastrointestinal: No abdominal pain, No nausea or vomiting, No diarrhea, No constipation, No blood in stool, No acid reflux, No hemorrhoids, No ulcers, No gallbladder problem and No black,tarry stools Elliot Hematologic: No blood thinners, No blood disorders, No bleeding, No anemia and No blood clots Neuro Neurologic: No system reviewed and no additional complaints, except as documented, No as per HPI, No abnormal gait, No abnormal hearing, No abnormal movements, No abnormal speech, No behavioral changes, No burning sensations, No confusion, No convulsions, No disequilibrium, No dizziness, No localized weakness, No frequent falls, No headache(s), No lack of coordination, No loss of vision, No memory loss, No numbness, No other visual disturbances, No radicular pain, No restless legs, No sensory deficit, No syncope, No tingling, No tremor(s), No weakness and No other Exam Const General: cooperative, comfortable and no acute distress [facility] Head: normal to inspection Eyes General: appearance normal, both eyes and all related structures Neck Carotids: normal carotid upstroke Resp Effort & Inspection: normal respiratory effort Auscultation: clear to auscultation bilaterally Cardio Rate: regular rate Rhythm: regular rhythm GI Inspection: normal to inspection Auscultation: normal bowel sounds Musc Cervical Spine: normal cervical lordosis Skin General: no rashes or lesions noted Extrem Other: Right forearm cephalic vein diminutive.? Right antecubital vein quite generous.? Right upper arm cephalic vein borderline and more deeply placed.? Good pulse right radial artery and brachial artery Psych Appearance: grossly normal Assessment and Plan Assessment and Plan (1) History of type 2 diabetes mellitus: ?Status:?Chronic (2) Chronic renal disease, stage 5, glomerular filtration rate (GFR) less than or equal to 15 mL/min/1.73 square meter: ?Status:?Chronic ?Plan: I recommend to the patient a right upper arm transposed cephalic vein to brachial artery AV fistula creation.? I will need to recruit as much cephalic vein at the antecubital space is possible.? Unfortunately the vein becomes deep quite quickly in the distal right upper arm.? We will need to transpose as much as feasible.? She is aware of the technique, benefit, risk and alternatives.? I spoke loudly so both the patient and her could hear.? They are both aware that the patient's veins in all location are quite small.? No guarantees of success been offered.? I have additionally instructed them that after she starts dialysis I will want her to be on a 81 mg aspirin daily.? As noted above she is left arm dominant.? The patient request general anesthesia. We will schedule for a transposed right upper arm cephalic vein to brachial artery arteriovenous hemodialysis fistula creation. Appreciate the opportunity of assisting with the surgical care Copy: Dr. Ivory Reynaga and Dr. Colin Landin M.D., F.A.C.S. (3) History of hypertension: ?Status:?Chronic (4) Hyponatremia: ?Status:?Acute (5) Metabolic encephalopathy: ?Status:?Acute (6) Hyperkalemia: ?Status:?Chronic (7) Hypokalemia: ?Status:?Acute (8) Diabetic retinopathy: ?Status:?Chronic ?Qualifiers: ?Diabetes mellitus type:?type 2 (9) Obesity (BMI 30.0-34.9): ?Status:?Chronic (10) Hypomagnesemia: ?Status:?Acute (11) Nausea vomiting and diarrhea: ?Status:?Acute (12) Hyperlipidemia: ?Status:?Chronic (13) Proteinuria: ?Status:?Chronic (14) Asthma: ?Status:?Chronic ?Qualifiers: ?Asthma severity:?mild (15) Depression: ?Status:?Chronic (16) GERD (gastroesophageal reflux disease): ?Status:?Chronic (17) Restless leg syndrome: ?Status:?Chronic Coding Level of Care Code 52990 Diagnoses History of type 2 diabetes mellitus? Z86.39 Chronic renal disease, stage 5, glomerular filtration rate (GFR) less than or equal to 15 mL/min/1.73 square meter? N18.5 History of hypertension? Z86.79 Hyponatremia? E87.1 Metabolic encephalopathy? G93.41 Hyperkalemia? E87.5 Hypokalemia? E87.6 Diabetic retinopathy? E11.319 ? ? ? Diabetes mellitus type: type 2 Obesity (BMI 30.0-34.9)? E66.9 Hypomagnesemia? E83.42 Nausea vomiting and diarrhea? R11.2; R19.7 Hyperlipidemia? E78.5 Proteinuria? R80.9 Asthma? J45.909 ? ? ? Asthma severity: mild Depression? F32.9 GERD (gastroesophageal reflux disease)? K21.9 Restless leg syndrome? G25.81 I have re-examined the patient. There are no clinical changes since date of exam. Darek Landin M.D., F.A.C.S.
--- NOTE | 2022-04-02 06:39 | DCINST_ITS ---
Discharge Instructions Procedure Fistula Diet Discharge Diet: Renal Diet Activity Discharge Activity: May Not Drive (for 2-3 days or while taking narcotic pain medications.), May Shower and May Take a Tub Bath (in 5 days.) Lifting Restrictions: 5 pounds Keep extremity elevated above heart level: - (Keep arm elevated above the heart level for 3 days.) Dressing / Incision Call your doctor if your incision/area has: Continuous Slow Oozing, Sudden Increased Bleeding (apply pressure and call your doctor.), Increased Pain/ Swelling, Increased Redness and Foul Smelling Discharge Call your doctor if you observe: Fever of 101 or Higher Suture Line Care: Avoid Pulling/Pushing and Avoid Pinching/Bending Cleanse incision/area with: Keep Dressing Clean & Dry Additional Dressing/Incision Instructions:: Change or remove dressing in three days. Leave steri strips in place for an additional week Follow Up Care Please Follow Up With: Darek Landin MD When: Call [phone] to make an appointment for suture removal and follow up in 7-10 days Test Results: Test results from this visit will be discussed in further detail at your follow- up appointment, if applicable. Discharge Plan Admission Primary Reason for Your Visit: Fistula creation Attending Provider: Darek Landin Primary Care Provider: Colin Pedraza Discharge Orders/Prescriptions Prescriptions: New hydrocodone-acetaminophen 5-325 mg tablet 1 tab PO Q8H PRN (Reason: pain) 2 Days Qty: 5 0RF Continued gabapentin 300 MG capsule 600 mg PO QHS PRN (Reason: NERVE PAIN) multivitamin 1 EACH tablet 1 tab PO DAILY lysine 1,000 MG tablet 1,000 mg PO DAILY sodium bicarbonate 650 MG tablet 1,300 mg PO 0800 amlodipine 10 MG tablet 10 mg PO DAILY Label Comments: TAKE 1 TABLET BY MOUTH DAILY bupropion HCl 300 MG tablet extended release 24 hr 300 mg PO QHS cholecalciferol (vitamin D3) 1,000 UNIT tablet 1,000 unit PO DAILY sodium bicarbonate 650 MG tablet 650 mg PO QHS ferrous sulfate 325 MG tablet 325 mg PO DAILY Label Comments: TAKE 1 TABLET EVERY DAY WITH breakfast fluoxetine 40 mg capsule 40 mg PO DAILY Label Comments: TAKE 1 CAPSULE BY MOUTH EVERY MORNING famotidine 20 mg tablet 20 mg PO BID Label Comments: TAKE 1 TABLET BY MOUTH TWICE DAILY metoprolol succinate 25 mg tablet extended release 24 hr 50 tab PO QHS Label Comments: Take 1 tablet by mouth once daily. Prempro 0.625-2.5 mg tablet 1 tab PO DAILY Label Comments: Take 1 tablet by mouth once daily. magnesium 200 mg Tablet 800 mg PO 0800 magnesium 200 mg Tablet 400 mg PO QHS calcium acetate(phosphat bind) 667 mg capsule 1 cap PO TID Label Comments: TAKE 1 CAPSULE BY MOUTH THREE TIMES DAILY WITH MEALS Referrals / Follow Up: Colin Pedraza [Primary Care Provider] - Disposition Disposition (needs filled in before D/C Order can be placed): Home, Self Care
[2022-04-02 07:00] LABS: Bedside Glucose 112 mg/dL (74-106)
[2022-04-02] MEDS: Heparin Injection (Vial) 5,000 UNIT/ML VIAL 5000 UNIT (07:24)
[2022-04-02] MEDS: Cefazolin 2 GM in 0.9% Normal Saline 100 ML IV (07:24)
[2022-04-02] MEDS: Bupivacaine 0.25% 30 ML Vial (07:24)
[2022-04-02] MEDS: Lidocaine 1% (50 ml mdv) 50 ML Vial (07:24)
--- NOTE | 2022-04-02 09:28 | PCM.OPRPT ---
Problems Associated Problem List Diagnoses (1) Chronic renal disease, stage 5, glomerular filtration rate (GFR) less than or equal to 15 mL/min/1.73 square meter: Report of Operation Date of Procedure: 04/02/22 Pre-Operative Diagnosis: Stage V chronic renal failure Post-Operative Diagnosis: Same Surgery/Procedure Performed:: Transposition right upper arm cephalic vein to brachial artery arteriovenous hemodialysis fistula creation Description of Surgical Findings:: Timeout informed consent was obtained. 51-year-old female was taken to the operating placed on the table underwent monitored anesthesia care. Ancef 2 g were given intravenously. 1% lidocaine mixed 50-50 with 0.25% Marcaine was used as a local anesthetic. A total of 43 cc was used. Ultrasound was used to map the course of the cephalic vein. Local was instilled. A longitudinal incision was made over the vein and sharp and blunt dissection was used to tediously dissect the vein free. Side branches were secured with 3-0 Vicryl ligatures and hemoclips. The vein was dissected up to the shoulder area it was then ink marked.. Have a good lie to it. Fortunately the brachial artery was then nice proximity at the antecubital area and sharp and blunt dissection was used to identify that and Vesseloops were placed. Then medial to the harvest incision a 6 mm tunneler was placed the vein was ligated distally with 3-0 Vicryl and then it was tunneled with the [place] tunneler. The vein had been marked to assure no twisting. Good positioning was achieved. The vein was irrigated and quite nice diameter. The patient received 5000 units of heparin. Peripheral vascular clamps were placed on the brachial artery and 11 blade was used to make an arteriotomy which was extended with Drew scissors. A end-to-side venous to arterial anastomosis was created with a running 7-0 Prolene. Good hemostasis was achieved. There was a good easily palpable thrill. The hand was inspected was noted to be quite pink and viable and there was at least a 2-3+ right radial pulse. I assured that the vein was in good position. The patient then received 30 mg of protamine as reversal. The subcutaneous tissues were approximated with 2 different layers of running 3-0 Vicryl. In so doing I did place a stitch through the fistula close to the anastomosis had a cut that Vicryl stitch free and repair that small defect with a 7-0 Prolene suture. There was no consequence of the fistula as it remained with an excellent pulse and thrill and there was no narrowing at that spot. The subcutaneous tissues completed to be approximated and then the subdermal edges approximate 1 subicular 4-0 Monocryl. Steri-Strips Telfa soft roll Binu wrap from the hand all the way up to the shoulder was applied. Sponge and instrument and needle counts were reported to the surgeon to be correct. Specimens none. Drains none. Blood loss 100 cc. She tolerated the procedure well was taken to the recovery area in satisfactory addition without apparent complication Darek Landin M.D., F.A.C.S. Surgeon: Darek Landin Type of Anesthesia: Local MAC Anesthesiologist: Magdalena Jerry
== END 2022-04-02 11:58 | disposition home or self-care (01) ==
LOC: SDC 05:58 → AC 05:58
PROVIDERS: PCP Student in an Organized Health Care Education/Training Program; Referring Provider Surgery; Visit Provider Surgery
PROC: (CPT 36810; principal; 2022-04-02 07:15)
DX: N18.5 Chronic kidney disease, stage 5 (principal); E11.22 Type 2 diabetes mellitus with diabetic chronic kidney disease; Z87.891 Personal history of nicotine dependence; E87.6 Hypokalemia; Z79.84 Long term (current) use of oral hypoglycemic drugs; E66.9 Obesity, unspecified
CPT/HCPCS: 36810; 01844; 36415; 80048; 82962; 85027; 93005; J7040; J7120; J2405

== ENCOUNTER → 2022-04-12 | Outpatient (CLI) | payer MEDICAID, SELFPAY ==
[2022-04-12 15:25] LABS: Hematocrit 23.8 % (37-47); Hemoglobin 7.5 g/dL (12.0-15.0); Mean Corp Hgb Conc 31.5 g/dL (32-36); Mean Corpuscular Hgb 27.1 pg (27.0-32.0); Mean Corpuscular Volume 85.9 fL (81-99); Mean Platelet Vol. 10.1 fl (6.2-12.0); Platelet Count 256 K/mm3 (150-450); RBC Distribution Width CV 14.1 % (11.6-14.6); RBC Distribution Width SD 44.6 fl (35.1-43.9); Red Blood Count 2.77 M/mm3 (4.2-5.4); White Blood Count 7.5 K/mm3 (4.4-11.0)
[2022-04-12 15:51] LABS: Albumin, Serum 2.2 g/dL (3.2-5.0); BUN 57 mg/dL (7-18); BUN/Creat Ratio 14.8 RATIO (10-20); Calcium,Total 9.2 mg/dL (8.5-10.1); Chloride 109 mmol/L (98-107); Creatinine, Serum 3.84 mg/dL (0.55-1.02); EST Glomerular Filtration Rate 13 mL/min (>60); Est Glom Filt Rate - Afr Amer 16 mL/min (>60); Glucose 88 mg/dL (74-106); Magnesium 1.8 mg/dL (1.6-2.6); Phosphorus 4.6 mg/dL (2.5-4.9); Potassium 5.9 mmol/L (3.5-5.1); Sodium Level 137 mmol/L (136-145)
== END | disposition home or self-care (01) ==
LOC: LAB 14:31
PROVIDERS: PCP Student in an Organized Health Care Education/Training Program; Visit Provider Internal Medicine Nephrology
DX: N18.4 Chronic kidney disease, stage 4 (severe) (principal); E83.42 Hypomagnesemia; D64.9 Anemia, unspecified
CPT/HCPCS: 36415; 80069; 83735; 85027

== ENCOUNTER → 2022-04-20 | Outpatient (CLI) | payer MEDICAID, SELFPAY ==
[2022-04-20 17:05] LABS: Potassium 4.5 mmol/L (3.5-5.1)
== END | disposition home or self-care (01) ==
LOC: LAB 16:02
PROVIDERS: PCP Student in an Organized Health Care Education/Training Program; Visit Provider Internal Medicine Nephrology
DX: E87.5 Hyperkalemia (principal)
CPT/HCPCS: 36415; 84132

== ENCOUNTER 2022-05-04 09:38 | Inpatient (IN) | payer MEDICAID, SELFPAY ==
[2022-05-04] VITALS (12 sets, daily range): BP systolic 175–195; BP diastolic 62–90; PULSE 61–74; RESP 16–20; TEMP 36.5–36.9; O2SAT 89–100; BMI 31.2; BMI 30.6
--- NOTE | 2022-05-04 10:07 | EKG12_ITS ---
Test Reason : CP Blood Pressure : / mmHG Vent. Rate : 060 BPM Atrial Rate : 060 BPM P-R Int : 156 ms QRS Dur : 086 ms QT Int : 450 ms P-R-T Axes : 021 070 097 degrees QTc Int : 450 ms Normal sinus rhythm Normal ECG Confirmed by SONIA CORTES, AMISH ([id number]), editor department ZULEMA REECE ([id number]) on 05/05/2022 7:28:01 AM Referred By: CLARISSA Confirmed By:AMISH SCOTT MD
--- NOTE | 2022-05-04 10:15 | EX.ED.DYSGE1 ---
HPI <EARL Bailey - Last Filed: 05/04/22 12:00> History of Present Illness Chief Complaint: Chest Pain Narrative Narrative: 51-year-old female with history of diabetes hypertension end-stage renal disease who has a fistula to the right upper arm however it is not been accessed yet for dialysis presents to the emergency department for multiple symptoms. Patient states over the last 4 to 5 days she has been feeling more swollen to her lower extremities, had increased shortness of breath as well as midsternal chest pain. Patient did have an episode of vomitus today however this was after coughing. She denies any fevers or chills, she states that she has felt bloated in her abdomen, worse dyspnea on exertion as well as laying flat. She denies any fevers or chills. [facility] <EARL Bailey - Last Filed: 05/04/22 12:00> [facility] Medical History (Updated 05/04/22 @ 12:00 by EARL Bailey) Anemia Anxiety Arthritis Back pain Cancer Diabetes Former smoker Gastric reflux High cholesterol History of basal cell cancer History of echocardiogram History of irregular heartbeat History of pain when walking History of renal disease Hypertension Injury of head and neck Post-menopausal Wears dentures Wears glasses Home Medications gabapentin 300 mg capsule 900 mg PO QHS 05/27/16 [History Last Taken 04/01/22] amlodipine 10 mg tablet 10 mg PO DAILY bp 04/16/19 [History Last Taken 04/06/19] bupropion HCl 300 mg 24 hr tablet, extended release 300 mg PO QHS depression 04/16/19 [History Last Taken 04/01/22] cholecalciferol (vitamin D3) 25 mcg (1,000 unit) tablet 1,000 unit PO DAILY supplement 04/16/19 [History Last Taken 04/01/22] lysine 1,000 mg tablet 1,000 mg PO DAILY supplement 04/16/19 [History Last Taken 04/01/22] multivitamin 1 tab PO DAILY supplement 04/16/19 [History Last Taken 04/01/22] sodium bicarbonate 650 mg tablet 1,300 mg PO 0800 acid 04/16/19 [History Last Taken 04/01/22] ferrous sulfate 325 mg (65 mg iron) tablet 325 mg PO BID supplement 04/22/19 [History Last Taken 04/01/22] sodium bicarbonate 650 mg tablet 650 mg PO QHS acid 04/22/19 [History Last Taken 04/01/22] calcium acetate(phosphat bind) 667 mg capsule 1 cap PO TID 03/23/22 [History Last Taken 04/01/22] conj estrogen-medroxyprogesterone 0.625 mg-2.5 mg tablet (Prempro) 1 tab PO DAILY 03/23/22 [History Last Taken 04/01/22] famotidine 20 mg tablet 20 mg PO BID 03/23/22 [History Last Taken Unknown] fluoxetine 40 mg capsule 40 mg PO DAILY 03/23/22 [History Last Taken 04/01/22] magnesium 200 mg tablet 400 mg PO BID 03/23/22 [History Last Taken 04/01/22] metoprolol succinate 25 mg tablet,extended release 24 hr 50 tab PO QHS 03/23/22 [History Last Taken 04/01/22] atorvastatin 80 mg tablet 80 mg PO QHS 05/04/22 [History Last Taken Unknown] Allergy/AdvReac Type Severity Reaction Status Date / Time No Known Allergies Allergy Verified 05/04/22 09:40 Surgical History H/O local excision of skin lesion History of arteriovenostomy for renal dialysis (~03/2022) Hx of tooth extraction Social History (Updated 03/20/22 @ 13:09 by Mila Lubin) Smoking Status: Former smoker alcohol intake: never ROS <EARL Bailey - Last Filed: 05/04/22 12:00> ROS ED ROS Narrative Constitutional: Negative for fever, chills, weight loss, weakness Eyes: Negative for vision loss, vision change, double vision ENT: Negative for any sore throat, ear pain, congestion Cardiovascular: Negative for any, palpitations. Positive chest pain, chest tightness Respiratory: Negative for any sputum production, hemoptysis, dyspnea, dyspnea on exertion, orthopnea. Positive for cough Gastrointestinal: Negative for any abdominal pain, diarrhea, constipation, blood in stool, blood in vomit. Positive for nausea and vomiting : Negative for any urinary frequency, dysuria, retention, blood in urine Muscle skeletal: Negative for any muscle joint pain, stiffness, myalgias, arthralgias, neck pain, back pain. Positive for lower leg edema Neurological: Negative for any headache, syncope, numbness or tingling, dizziness Skin: Negative for any rashes, lumps, itching, abrasions, lacerations Psychiatric: Negative for any depression, anxiety, stress, suicidal ideation, homicidal ideation Hematologic: Negative for any easy bruising, excessive bruising, easy bleeding Allergies: Negative for any eczema, hives, rash EXAM <EARL Bailey - Last Filed: 05/04/22 12:00> Physical Exam Narrative Exam Narrative: Vital signs reviewed. HEET: Head normocephalic atraumatic, TMs clear bilaterally. Posterior pharynx is clear, moist mucous membranes. Nares clear bilaterally. Neck: Supple with no lymphadenopathy or tenderness. No signs of meningismus, negative jolt sign. Cardiac: Regular rate and rhythm, positive for slight systolic murmur no gallops or rubs, equal peripheral pulses bilaterally. Respiratory: Lungs clear to auscultation bilaterally, diminished in the bases. No chest tenderness. Abdomen: Soft, nontender, nondistended. No abdominal bruit or pulsatile masses. No hepatosplenomegaly Extremities: No peripheral edema, no signs of gross trauma or deformity. Active full range of motion of all extremities. Neuro: Cranial nerves II through XII intact, no focal neurological deficits. Skin: Clean dry and intact with no rash, purpura, petechiae, vesicles or pustules. Patient does have a pale appearance Backs/flank: No CVA tenderness, no midline spinal tenderness, no deformity. Psych: Normal mood and affect. No SI, HI or acute psychosis. Const Vital Signs: 05/04/22 09:40 05/04/22 09:48 05/04/22 11:11 Temperature 97.8 F Temperature Source Oral Pulse Rate 62 61 Respiratory Rate 18 20 H Respiratory Effort Short of Breath Respiratory Pattern Tachypnea Blood Pressure 180/90 H 177/71 H Blood Pressure Mean 120 106 Pulse Ox 93 95 Oxygen Delivery Method Room Air Room Air <Dr. Jay Jonas MD - Last Filed: 05/04/22 10:25> Physical Exam Const Vital Signs: 05/04/22 09:40 05/04/22 09:48 05/04/22 11:11 Temperature 97.8 F Temperature Source Oral Pulse Rate 62 61 Respiratory Rate 18 20 H Respiratory Effort Short of Breath Respiratory Pattern Tachypnea Blood Pressure 180/90 H 177/71 H Blood Pressure Mean 120 106 Pulse Ox 93 95 Oxygen Delivery Method Room Air Room Air [facility] <EARL Bailey - Last Filed: 05/04/22 12:00> [facility] Lab Data Labs: Laboratory Results - last 24 hr 05/04/22 05/04/22 05/04/22 09:52 09:52 09:52 WBC 9.0 RBC 3.23 L Hgb 8.6 L Hct 26.6 L MCV 82.4 MCH 26.6 L MCHC 32.3 RDW Std Deviation 41.5 RDW Coeff of Mandy 13.5 Plt Count 277 MPV 10.1 Immature Gran % (Auto) 0.600 Neut % (Auto) 78.3 H Lymph % (Auto) 14.1 L Martin % (Auto) 4.4 Eos % (Auto) 2.0 Baso % (Auto) 0.6 Absolute Neuts (auto) 7.0 Absolute Lymphs (auto) 1.26 Nucleated RBC % 0 Sodium 122 L Potassium 5.9 H Chloride 95 L Carbon Dioxide 21.0 Anion Gap 6 BUN 56 H Creatinine 4.43 H Estim Creat Clear Calc 11.03 Est GFR (MDRD) Af Amer 14 L Est GFR (MDRD) Non-Af 11 L BUN/Creatinine Ratio 12.6 Glucose 124 H Calcium 9.2 Magnesium 2.0 Troponin I High Sens 13 B-Natriuretic Peptide 822.5 H Urine Color Urine Clarity Urine pH Ur Specific [place] Urine Protein Urine Glucose (UA) Urine Ketones Urine Occult Blood Urine Nitrite Urine Bilirubin Urine Urobilinogen Ur Leukocyte Esterase Urine RBC Urine WBC Ur Squamous Epith Cells Urine Bacteria WBC Casts Urine Mucus 05/04/22 11:01 WBC RBC Hgb Hct MCV MCH MCHC RDW Std Deviation RDW Coeff of Mandy Plt Count MPV Immature Gran % (Auto) Neut % (Auto) Lymph % (Auto) Martin % (Auto) Eos % (Auto) Baso % (Auto) Absolute Neuts (auto) Absolute Lymphs (auto) Nucleated RBC % Sodium Potassium Chloride Carbon Dioxide Anion Gap BUN Creatinine Estim Creat Clear Calc Est GFR (MDRD) Af Amer Est GFR (MDRD) Non-Af BUN/Creatinine Ratio Glucose Calcium Magnesium Troponin I High Sens B-Natriuretic Peptide Urine Color Straw Urine Clarity Clear Urine pH 7.0 Ur Specific [place] 1.010 Urine Protein 500 H Urine Glucose (UA) 50 H Urine Ketones Negative Urine Occult Blood 10 H Urine Nitrite Negative Urine Bilirubin Negative Urine Urobilinogen Normal Ur Leukocyte Esterase 25 H Urine RBC 0 SEEN Urine WBC 5-10 SEEN Ur Squamous Epith Cells 0-5 SEEN Urine Bacteria 1+ WBC Casts 0-5 SEEN Urine Mucus 0 SEEN Radiography Diagnostic Testing: Clinical Impression(s) from Imaging Studies Chest X-Ray 05/04/22 10:20 IMPRESSION: Poor inspiration with some bibasilar atelectasis and tiny bilateral pleural effusions. Electronically Signed: Yaya Moreira MD at 11:06 EDT , EKG Normal sinus rhythm: Interpretation: Sinus Rhythm Comments: Normal sinus rhythm, rate of 60 bpm, CO 156 ms, QRS duration 86 ms, no acute ST elevation, no acute infarct noted Treatment and Re-Evaluation Narrative: I have personally performed a face to face assessment of the patient and have reviewed the HUNG Note. I performed a substantive portion of the visit including all aspects of the following. My lindo findings include: History: Patient has multiple complaints. These have generally been going on for about a week but some are longer. She has had about 3 to 5 days of an achy feeling in her anterior chest. Occasionally if she moves she has sharp pains. She also has a general sense of shortness of breath that is different than normal. She has an occasional cough but no sputum production. She also notes that sometimes in the evening she will get some edema of her feet. She has had this before but had not gone away and now seems to be coming back again. She is also complaining of constipation. But she denies black or bloody bowel movements. She also has decreased overall level of energy. Only change in medication that I get was metformin was stopped and then restarted but this sounds like it was a few months ago. She did have a fistula placed in right upper extremity 1 month ago. There are no complaints specifically related to that. Exam shows patient awake alert and appropriate. She does look pale when I walk in the room. But she is also blue-eyed and redhaired. Her family member is not sure if she looks pale or not any different than normal. Breathing looks easy and unlabored. She carries on normal conversation. Her lungs sound clear to me. There is minimal chest wall tenderness but does not fully reproduce her symptoms. Her abdomen is actually benign. She has trace indentation from her socks and trace distal pitting pretibial edema. No erythema. Her fistula has excellent thrill. Medical Decison Making: Patient will have blood work done including COVID BNP troponin and magnesium. We will also check check x-ray. Patient will be revaluated after these results. Patient arrives in mild respiratory distress, patient is tachypneic after ambulation, patient presents emerged part with chest pain, shortness of breath on exertion, orthopnea. Patient did receive some basic laboratory values well as a cardiac work-up.Patient's chest x-ray by ER physician shows some bibasilar atelectasis with tiny bilateral patient's laboratory studies show some anemia with a hemoglobin 8.6 however this is baseline for the patient. This is secondary to her renal failure. Patient's chemistries show hyponatremia with a sodium of 122, patient potassium is elevated at 5.9, patient's creatinine is increased to 4.43, patient's last creatinine on 04/12/2022 was 3.84. Patient's proBNP was elevated 822. Patient's EKG was unremarkable, patient's troponin was unremarkable. At this time do not believe the patient is suffering from any acute cardiac pathology. I do believe the patient's kidneys are getting worse, patient is dehydrated, sodium of 122, potassium 5.9, I did reach out to the patient's manager garage, she recommended some Kayexalate as well as IV Lasix. Due to the patient's condition of shortness of breath, chest pain, new onset hyponatremia, I do believe the patient would benefit from admission. Patient be admitted to Dr. Garcia's service. Patient will receive IV Lasix 40 mg as well as Kayexalate 30 g. Patient stable for admission. <Dr. Jay Jonas MD - Last Filed: 05/04/22 10:25> [facility] Lab Data Labs: Laboratory Results - last 24 hr 05/04/22 05/04/22 05/04/22 09:52 09:52 09:52 WBC 9.0 RBC 3.23 L Hgb 8.6 L Hct 26.6 L MCV 82.4 MCH 26.6 L MCHC 32.3 RDW Std Deviation 41.5 RDW Coeff of Mandy 13.5 Plt Count 277 MPV 10.1 Immature Gran % (Auto) 0.600 Neut % (Auto) 78.3 H Lymph % (Auto) 14.1 L Martin % (Auto) 4.4 Eos % (Auto) 2.0 Baso % (Auto) 0.6 Absolute Neuts (auto) 7.0 Absolute Lymphs (auto) 1.26 Nucleated RBC % 0 Sodium 122 L Potassium 5.9 H Chloride 95 L Carbon Dioxide 21.0 Anion Gap 6 BUN 56 H Creatinine 4.43 H Estim Creat Clear Calc 11.03 Est GFR (MDRD) Af Amer 14 L Est GFR (MDRD) Non-Af 11 L BUN/Creatinine Ratio 12.6 Glucose 124 H Calcium 9.2 Magnesium 2.0 Troponin I High Sens 13 B-Natriuretic Peptide 822.5 H Urine Color Urine Clarity Urine pH Ur Specific [place] Urine Protein Urine Glucose (UA) Urine Ketones Urine Occult Blood Urine Nitrite Urine Bilirubin Urine Urobilinogen Ur Leukocyte Esterase Urine RBC Urine WBC Ur Squamous Epith Cells Urine Bacteria WBC Casts Urine Mucus 05/04/22 11:01 WBC RBC Hgb Hct MCV MCH MCHC RDW Std Deviation RDW Coeff of Mandy Plt Count MPV Immature Gran % (Auto) Neut % (Auto) Lymph % (Auto) Martin % (Auto) Eos % (Auto) Baso % (Auto) Absolute Neuts (auto) Absolute Lymphs (auto) Nucleated RBC % Sodium Potassium Chloride Carbon Dioxide Anion Gap BUN Creatinine Estim Creat Clear Calc Est GFR (MDRD) Af Amer Est GFR (MDRD) Non-Af BUN/Creatinine Ratio Glucose Calcium Magnesium Troponin I High Sens B-Natriuretic Peptide Urine Color Straw Urine Clarity Clear Urine pH 7.0 Ur Specific [place] 1.010 Urine Protein 500 H Urine Glucose (UA) 50 H Urine Ketones Negative Urine Occult Blood 10 H Urine Nitrite Negative Urine Bilirubin Negative Urine Urobilinogen Normal Ur Leukocyte Esterase 25 H Urine RBC 0 SEEN Urine WBC 5-10 SEEN Ur Squamous Epith Cells 0-5 SEEN Urine Bacteria 1+ WBC Casts 0-5 SEEN Urine Mucus 0 SEEN Radiography Diagnostic Testing: Clinical Impression(s) from Imaging Studies Chest X-Ray 05/04/22 10:20 IMPRESSION: Poor inspiration with some bibasilar atelectasis and tiny bilateral pleural effusions. Electronically Signed: Yaya Moreira MD at 11:06 EDT , Treatment and Re-Evaluation Narrative: I have personally performed a face to face assessment of the patient and have reviewed the HUNG Note. I performed a substantive portion of the visit including all aspects of the following. My lindo findings include: History: Patient has multiple complaints. These have generally been going on for about a week but some are longer. She has had about 3 to 5 days of an achy feeling in her anterior chest. Occasionally if she moves she has sharp pains. She also has a general sense of shortness of breath that is different than normal. She has an occasional cough but no sputum production. She also notes that sometimes in the evening she will get some edema of her feet. She has had this before but had not gone away and now seems to be coming back again. She is also complaining of constipation. But she denies black or bloody bowel movements. She also has decreased overall level of energy. Only change in medication that I get was metformin was stopped and then restarted but this sounds like it was a few months ago. She did have a fistula placed in right upper extremity 1 month ago. There are no complaints specifically related to that. Exam shows patient awake alert and appropriate. She does look pale when I walk in the room. But she is also blue-eyed and redhaired. Her family member is not sure if she looks pale or not any different than normal. Breathing looks easy and unlabored. She carries on normal conversation. Her lungs sound clear to me. There is minimal chest wall tenderness but does not fully reproduce her symptoms. Her abdomen is actually benign. She has trace indentation from her socks and trace distal pitting pretibial edema. No erythema. Her fistula has excellent thrill. Medical Decison Making: Patient will have blood work done including COVID BNP troponin and magnesium. We will also check check x-ray. Patient will be revaluated after these results. Discharge Plan Triage Chief Complaint: Chest Pain ED Midlevel Provider: Mina Espinosa ED Provider: Jay Jonas Dx/Rx/DC Orders Clinical Impression: Chronic kidney failure, Acute hyperkalemia, Acute hyponatremia, Exertional shortness of breath, Pleural effusion, Chest pain Prescriptions: No Action gabapentin 300 MG capsule 900 mg PO QHS multivitamin 1 EACH tablet 1 tab PO DAILY lysine 1,000 MG tablet 1,000 mg PO DAILY sodium bicarbonate 650 MG tablet 1,300 mg PO 0800 amlodipine 10 MG tablet 10 mg PO DAILY Label Comments: TAKE 1 TABLET BY MOUTH DAILY bupropion HCl 300 MG tablet extended release 24 hr 300 mg PO QHS cholecalciferol (vitamin D3) 1,000 UNIT tablet 1,000 unit PO DAILY sodium bicarbonate 650 MG tablet 650 mg PO QHS ferrous sulfate 325 MG tablet 325 mg PO BID Label Comments: TAKE 1 TABLET EVERY DAY WITH breakfast fluoxetine 40 mg capsule 40 mg PO DAILY Label Comments: TAKE 1 CAPSULE BY MOUTH EVERY MORNING famotidine 20 mg tablet 20 mg PO BID Label Comments: TAKE 1 TABLET BY MOUTH TWICE DAILY metoprolol succinate 25 mg tablet extended release 24 hr 50 tab PO QHS Label Comments: Take 1 tablet by mouth once daily. Prempro 0.625-2.5 mg tablet 1 tab PO DAILY Label Comments: Take 1 tablet by mouth once daily. magnesium 200 mg Tablet 400 mg PO BID calcium acetate(phosphat bind) 667 mg capsule 1 cap PO TID Label Comments: TAKE 1 CAPSULE BY MOUTH THREE TIMES DAILY WITH MEALS atorvastatin 80 mg Tablet 80 mg PO QHS Primary Care Provider: Colin Pedraza Referrals: Colin Pedraza [Primary Care Provider] - Disposition Disposition: Acute Care Hospital [facility]
--- NOTE | 2022-05-04 10:20 | RAD_ITS ---
STUDY: X-RAY CHEST REASON FOR EXAM: Female, 51 years old. shortness of breath TECHNIQUE: PA and lateral views of the chest. COMPARISON: 04/16/2019 FINDINGS: Portable inspiration with some bibasilar atelectasis. Tiny bilateral pleural effusions. Normal size heart. Normal mediastinum and angelia. Normal visualized pulmonary arteries. Normal visualized aortic arch and descending thoracic aorta. Normal visualized thoracic spine. Normal visualized ribs, clavicles, and shoulders. There is no demonstrated abnormality of the visualized soft tissue structures of the upper abdomen. RAD/Chest PA and Lateral IMPRESSION: Poor inspiration with some bibasilar atelectasis and tiny bilateral pleural effusions. Electronically Signed: Yaya Moreira MD at 11:06 EDT ,
[2022-05-04 10:23] LABS: Absolute Lymphocyte Count 1.26 X10^3/uL (0.83-4.51); Basophil# 0.05 X10^3/uL; Basophil% 0.6 % (0-1); Eosinophil# 0.18 X10^3/uL; Hematocrit 26.6 % (37-47); Hemoglobin 8.6 g/dL (12.0-15.0); Lymphocyte # 1.26 X10^3/ul (0.83-4.51); Lymphocyte % 14.1 % (19-41); Mean Corp Hgb Conc 32.3 g/dL (32-36); Mean Corpuscular Hgb 26.6 pg (27.0-32.0); Mean Corpuscular Volume 82.4 fL (81-99); Mean Platelet Vol. 10.1 fl (6.2-12.0); Monocyte# 0.39 X10^3/uL; Monocyte% 4.4 % (0-10); NRBC Flagged by Analyzer 0 % (0-5); Neutrophil # 7.03 X10^3/uL (2.7-7.7); Neutrophil % 78.3 % (47-70); Platelet Count 277 K/mm3 (150-450); RBC Distribution Width CV 13.5 % (11.6-14.6); RBC Distribution Width SD 41.5 fl (35.1-43.9); Red Blood Count 3.23 M/mm3 (4.2-5.4)
[2022-05-04 10:38] LABS: Anion Gap 6 (5-15); BUN 56 mg/dL (7-18); BUN/Creat Ratio 12.6 RATIO (10-20); Calcium,Total 9.2 mg/dL (8.5-10.1); Chloride 95 mmol/L (98-107); Creatinine, Serum 4.43 mg/dL (0.55-1.02); EST Glomerular Filtration Rate 11 mL/min (>60); Est Glom Filt Rate - Afr Amer 14 mL/min (>60); Estimated Creatinine Clearance 11.03 ml/min; Glucose 124 mg/dL (74-106); Potassium 5.9 mmol/L (3.5-5.1); Sodium Level 122 mmol/L (136-145); Troponin-I HS 13 pg/mL (3.0-54.0)
[2022-05-04 10:48] LABS: BNP,B-Type NATRIURETIC PEPTIDE 822.5 pg/mL (0-100)
[2022-05-04 11:11] LABS: Mucous, Urine 0 SEEN /hpf (<or=2+); Red Blood Cells-Urine 0 SEEN /hpf (0-5)
[2022-05-04 11:12] LABS: Color, Urine Straw (Yellow); Glucose, Dipstick 50 mg/dl (Normal); Ketone-Dipstick Negative (Negative); Leukocyte Esterase-Dipstick 25 /ul (Negative); Nitrite-Dipstick Negative (Negative); Occult Blood-Urine 10 /ul (Negative); Protein-Dipstick 500 mg/dl (Negative); Urine Bilirubin Dipstick Negative (Negative); Urine Clarity Clear (Clear); Urine Urobilinogen Normal (Normal)
[2022-05-04 11:34] LABS: Squamous Epithelial Cells - UA 0-5 SEEN /hpf (5-10); White Blood Cells 5-10 SEEN /hpf (0-5); White Cell Cast 0-5 SEEN /lpf (None Seen)
[2022-05-04 11:35] LABS: Bacteria 1+ /hpf (None Seen)
--- NOTE | 2022-05-04 11:42 | HP.PCM.HOS_ITS ---
HPI - General General Date of Admission: 05/04/22 Date of Service: 05/04/22 Chief Complaint: chest pain HPI Narrative SILVERIO HOGAN, is a 51 F with an extensive PMH as outlined who presents via the ED on 05/04/2022 with a complaint of chest pain. Symptoms started about 4-5 days prior to admission, and also complained of swelling in her lower extremities. She has had increasing shortness of breath as well as orthopnea and PND. She denied any fever, chills, nausea, vomiting or diarrhea. Review of systems is otherwise negative. Vitals in the ED were BP of 177/71, UT of 61, RR of 20 and oxygen sats of 95% on room air. CBC showed hb of 8.6, wbc of 9 and platelets of 277. BMp showed sodium of 122, potassium of 5.9 and Cr of 4.43. Bicarb is 21. BNP is 822.5. Urinalysis showed 1+ bacteria. CXR showed poor inspiration with some bibasilar atelectasis and tiny bilateral pleural effusion. Of note, she had a fistula placed ~ a month ago, and has not been started on dialysis yet. She is being admitted to be managed for fluid overload and hyperkalemia likely due to worsening ESRD. [facility] Medical History Anemia Anxiety Arthritis Back pain Cancer Diabetes Former smoker Gastric reflux High cholesterol History of basal cell cancer History of echocardiogram History of irregular heartbeat History of pain when walking History of renal disease Hypertension Injury of head and neck Post-menopausal Wears dentures Wears glasses Home Medications gabapentin 300 mg capsule 900 mg PO QHS 05/27/16 [History Last Taken 04/01/22] amlodipine 10 mg tablet 10 mg PO DAILY bp 04/16/19 [History Last Taken 04/06/19] bupropion HCl 300 mg 24 hr tablet, extended release 300 mg PO QHS depression 04/16/19 [History Last Taken 04/01/22] cholecalciferol (vitamin D3) 25 mcg (1,000 unit) tablet 1,000 unit PO DAILY supplement 04/16/19 [History Last Taken 04/01/22] lysine 1,000 mg tablet 1,000 mg PO DAILY supplement 04/16/19 [History Last Taken 04/01/22] multivitamin 1 tab PO DAILY supplement 04/16/19 [History Last Taken 04/01/22] sodium bicarbonate 650 mg tablet 1,300 mg PO 0800 acid 04/16/19 [History Last Taken 04/01/22] ferrous sulfate 325 mg (65 mg iron) tablet 325 mg PO BID supplement 04/22/19 [History Last Taken 04/01/22] sodium bicarbonate 650 mg tablet 650 mg PO QHS acid 04/22/19 [History Last Taken 04/01/22] calcium acetate(phosphat bind) 667 mg capsule 1 cap PO TID 03/23/22 [History L ast Taken 04/01/22] conj estrogen-medroxyprogesterone 0.625 mg-2.5 mg tablet (Prempro) 1 tab PO MEDINA Y 03/23/22 [History Last Taken 04/01/22] famotidine 20 mg tablet 20 mg PO BID 03/23/22 [History Last Taken Unknown] fluoxetine 40 mg capsule 40 mg PO DAILY 03/23/22 [History Last Taken 04/01/22] magnesium 200 mg tablet 400 mg PO BID 03/23/22 [History Last Taken 04/01/22] metoprolol succinate 25 mg tablet,extended release 24 hr 50 tab PO QHS 03/23/22 [History Last Taken 04/01/22] atorvastatin 80 mg tablet 80 mg PO QHS 05/04/22 [History Last Taken Unknown] Allergy/AdvReac Type Severity Reaction Status Date / Time No Known Allergies Allergy Verified 05/04/22 09:40 Surgical History H/O local excision of skin lesion History of arteriovenostomy for renal dialysis (~03/2022) Hx of tooth extraction Social History (Updated 03/20/22 @ 13:09 by Mila Lubin) Smoking Status: Former smoker alcohol intake: never ROS Constitutional Constitutional: Reports fatigue, malaise and weakness; Denies anorexia, chills or fever(s) Eyes Eyes: Denies change in vision ENT HEENT: Denies dysphagia Cardiovascular Cardiovascular: Reports dyspnea on exertion, edema, orthopnea and paroxysmal nocturnal dyspnea; Denies chest pain, lightheadedness, palpitations, rapid heart rate or syncope Respiratory/Chest Respiratory/Chest: Reports dyspnea, shortness of breath at rest and shortness of breath with exertion; Denies cough, productive cough or wheezing Gastrointestinal Gastrointestinal: Denies abdominal pain, diarrhea, nausea or vomiting Genitourinary Genitourinary: Denies burning urination or dysuria Musculoskeletal Musculoskeletal: Denies arthralgias or back pain Neurologic Neurologic: Denies confusion, dizziness, focal weakness or syncope Psychiatric Psychiatric: Denies anxiety or depression Vital Signs Vital Signs Vital Signs: 05/04/22 09:40 05/04/22 09:48 05/04/22 11:11 Temperature 97.8 F Temperature Source Oral Pulse Rate 62 61 Respiratory Rate 18 20 H Respiratory Effort Short of Breath Respiratory Pattern Tachypnea Blood Pressure 180/90 H 177/71 H Blood Pressure Mean 120 106 Pulse Ox 93 95 Oxygen Delivery Method Room Air Room Air Weight Weight: 160 lb Body Mass Index (BMI) 31.2 Physical Exam Const alert, oriented x3 and no apparent distress General Appearance: cooperative HEENT normocephalic, head/scalp atraumatic, hearing grossly normal bilaterally and moist oral mucous membranes Mouth: oral and palatal mucosa normal Neck no lymphadenopathy and supple Resp Resp Narrative: mildly diminished breath sounds bibasally, no wheezes or crackles. On room air Cardio regular rate, regular rhythm, S1 normal heart sound, S2 normal heart sound and no murmurs GI normal to inspection, nondistended, normoactive bowel sounds, soft to palpation and non-tender Extremity normal to inspection, full ROM and no clubbing, cyanosis or edema Extremity Narrative: restless leg syndrome Neuro oriented x3, CN's II-XII intact bilaterally and moves all extremities Sensorium / Orientation: awake and alert Motor Exam: strength 5/5 throughout Psych affect normal Results Lab / Micro Data Result Diagrams: 05/04/22 09:52 05/04/22 09:52 Labs: Laboratory Results - last 24 hr 05/04/22 09:52: WBC 9.0, RBC 3.23 L, Hgb 8.6 L, Hct 26.6 L, MCV 82.4, MCH 26.6 L , MCHC 32.3, RDW Std Deviation 41.5, RDW Coeff of Mandy 13.5, Plt Count 277, MPV 10.1, Immature Gran % (Auto) 0.600, Neut % (Auto) 78.3 H, Lymph % (Auto) 14.1 L, [place] % (Auto) 4.4, Eos % (Auto) 2.0, Baso % (Auto) 0.6, Absolute Neuts (auto) 7.0, Absolute Lymphs (auto) 1.26, Nucleated RBC % 0 05/04/22 09:52: Sodium 122 L, Potassium 5.9 H, Chloride 95 L, Carbon Dioxide 21.0, Anion Gap 6, BUN 56 H, Creatinine 4.43 H, Estim Creat Clear Calc 11.03, Est GFR (MDRD) Af Amer 14 L, Est GFR (MDRD) Non-Af 11 L, BUN/Creatinine Ratio 12.6, Glucose 124 H, Calcium 9.2, Magnesium 2.0, Troponin I High Sens 13 05/04/22 09:52: B-Natriuretic Peptide 822.5 H 05/04/22 11:01: Urine Color Straw, Urine Clarity Clear, Urine pH 7.0, Ur Specific [place] 1.010, Urine Protein 500 H, Urine Glucose (UA) 50 H, Urine Ketones Negative, Urine Occult Blood 10 H, Urine Nitrite Negative, Urine Bilirubin Negative, Urine Urobilinogen Normal, Ur Leukocyte Esterase 25 H, Urine RBC 0 SEEN, Urine WBC 5-10 SEEN, Ur Squamous Epith Cells 0-5 SEEN, Urine Bacteria 1+, WBC Casts 0-5 SEEN, Urine Mucus 0 SEEN Micro: Microbiology 05/04/22 10:14 Nasal Secretion SARS-CoV-2 & FLU Antigen (Rapid) - Final Radiology Impression Chest X-Ray 05/04/22 10:20 IMPRESSION: Poor inspiration with some bibasilar atelectasis and tiny bilateral pleural effusions. Electronically Signed: Yaya Moreira MD at 11:06 EDT , Assessment & Plan Assessment/Plan (1) Hyponatremia: (2) Fluid overload: PLAN: Plan # Hypoxia due to fluid overload from worsening ESRD * was saturating at 83% on room air in the ED, and required 4L of oxygen to come up to 89-90% * BN is elevated at 825; initial troponin not elevated * Cr is 4.43; she had a fistula inserted in [facility] a month ago * consult nephrology * start diuresis with IV lasix 40mg bid * monitor intake and output. Fluid restriction to 1500cc daily. * On bicarb and calcium acetate #Hyperkalemia: K is 5.9. Likely due to worsening kidney function. WIll give kayexalate and monitor #Hyponatremia: Na is 122. Likely due to fluid overload. Should improve with diuresis. If it doesnt, will work up more extensively ##Type 2 diabetes mellitus: On insulin sliding scale. Accu-Cheks ACH S. #Hyperlipidemia: On statin #Depression: On bupropion and paroxetine #Hypertension: On metoprolol and amlodipine. Due to prophylaxis: Lovenox 30 mg daily CODE STATUS: Full code * Patient and father counseled extensively about different types of CODE STATUS including full code, DNR CCA and DNR CCA. * Patient elects to be full code. * Total [id number] time 17 minutes. Charges/Coding Visit Charges Inpatient E&M: 69012 Init Hosp L3 Procedures Hospitalists Procedures: 49710 Advncd Care Plan 30 Min
--- NOTE | 2022-05-04 11:43 | NURSING ---
DR REYES FOR ER DOC
--- NOTE | 2022-05-04 12:03 | NURSING ---
PCU [facility] KIDNEY FAILURE, HYPERKALEMIA, PLEURAL EFFUSION, SOB
[2022-05-04] MEDS: Sodium Polystyrene Sulfonate 15 GM/60 ML UDC 30 GM PO (12:27)
[2022-05-04] MEDS: Furosemide 40 MG/4 ML Vial IV ×2 (12:27→18:08)
[2022-05-04 14:57] LABS: Troponin-I HS 16 pg/mL (3.0-54.0)
[2022-05-04 16:30] LABS: Bedside Glucose 172 mg/dL (74-106)
[2022-05-04] MEDS: Calcium Acetate 667 MG Capsule PO (16:32)
[2022-05-04] MEDS: amLODIPine 10 MG Tablet PO (16:32)
[2022-05-04] MEDS: Ferrous Sulfate 325 MG Tablet PO (16:32)
[2022-05-04] MEDS: Insulin Lispro 100 UNIT/ML INSULN.PEN SC (16:33)
[2022-05-04 16:52] LABS: Troponin-I HS 14 pg/mL (3.0-54.0)
[2022-05-04 17:17] LABS: Ferritin 217 ng/mL (8-252); Iron 43 ug/dL (50-170); Iron Binding Capacity,Total 306 ug/dL (250-450); PERCENT IRON SATURATION 14.1 % (15.0-55.0)
[2022-05-04] MEDS: 0.9% Saline Lock 10 ML Syringe IV ×2 (18:09→18:56)
[2022-05-04] MEDS: hydrALAZINE 20 MG/ML Vial 10 MG IV (18:56)
[2022-05-04 20:58] LABS: Troponin-I HS 16 pg/mL (3.0-54.0)
[2022-05-04] MEDS: Magnesium Chloride 64 MG Delay Rel.Tablet 128 MG PO (21:20)
[2022-05-04] MEDS: Atorvastatin Calcium 80 MG Tablet PO (21:20)
[2022-05-04] MEDS: Sodium Bicarbonate 650 MG Tablet PO (21:21)
[2022-05-04] MEDS: Pramipexole Di-HCl 0.25 MG Tablet PO (21:21)
[2022-05-04] MEDS: Metoprolol(XL)Succ 50 MG Tablet PO (21:21)
[2022-05-04] MEDS: Gabapentin 300 MG Capsule 900 MG PO (21:21)
[2022-05-04 23:55] LABS: Bedside Glucose 123 mg/dL (74-106)
[2022-05-05] VITALS (12 sets, daily range): BP systolic 104–171; BP diastolic 56–80; PULSE 56–68; RESP 16–20; TEMP 36.2–36.7; O2SAT 92–100
[2022-05-05] MEDS: Enoxaparin 30 MG/0.3 ML Syringe SC (06:21)
[2022-05-05 07:16] LABS: Absolute Lymphocyte Count 1.58 X10^3/uL (0.83-4.51); Absolute Neutrophil Count 4.4 X10^3/uL (2.0-7.7); Basophil# 0.04 X10^3/uL; Basophil% 0.6 % (0-1); Eosinophil# 0.23 X10^3/uL; Eosinophils% 3.4 % (0-5); Hematocrit 24.7 % (37-47); Hemoglobin 7.9 g/dL (12.0-15.0); Lymphocyte # 1.58 X10^3/ul (0.83-4.51); Lymphocyte % 23.1 % (19-41); Mean Corpuscular Hgb 26.3 pg (27.0-32.0); Mean Corpuscular Volume 82.3 fL (81-99); Mean Platelet Vol. 10.3 fl (6.2-12.0); Monocyte# 0.51 X10^3/uL; Monocyte% 7.5 % (0-10); NRBC Flagged by Analyzer 0 % (0-5); Neutrophil # 4.44 X10^3/uL (2.7-7.7); Platelet Count 260 K/mm3 (150-450); RBC Distribution Width CV 13.9 % (11.6-14.6); RBC Distribution Width SD 41.5 fl (35.1-43.9); White Blood Count 6.8 K/mm3 (4.4-11.0)
[2022-05-05 07:32] LABS: Anion Gap 10 (5-15); BUN 62 mg/dL (7-18); BUN/Creat Ratio 13.1 RATIO (10-20); Calcium,Total 9.2 mg/dL (8.5-10.1); Chloride 99 mmol/L (98-107); Creatinine, Serum 4.73 mg/dL (0.55-1.02); EST Glomerular Filtration Rate 10 mL/min (>60); Est Glom Filt Rate - Afr Amer 13 mL/min (>60); Estimated Creatinine Clearance 10.86 ml/min; Glucose 107 mg/dL (74-106); Potassium 4.4 mmol/L (3.5-5.1); Sodium Level 129 mmol/L (136-145)
[2022-05-05 07:35] LABS: Bedside Glucose 114 mg/dL (74-106)
--- NOTE | 2022-05-05 09:01 | PCM.CONS.R ---
Assessment & Plan Assessment/Plan (1) Chronic renal disease, stage 5, glomerular filtration rate (GFR) less than or equal to 15 mL/min/1.73 square meter: PLAN: Due to diabetes. She has an AV fistula with good thrill and bruit created on 04/02. Follow-up with surgery to determine when access can be used. Currently no urgent indication to start dialysis. 24-hour urine for creatinine clearance if not discharged. Follow up with me in 1-2 weeks with renal panel (2) Type 2 diabetes mellitus with diabetic chronic kidney disease: (3) Acute hyperkalemia: PLAN: Resolved with Kayexalate. History of recurrent hyperkalemia corrected with Kayexalate. Patient received low potassium diet on multiple occasions in the office. (4) Acute hyponatremia: PLAN: Likely due to volume expansion. Sodium improved with IV Lasix. (5) Fluid overload: PLAN: Stable oxygenation. Considered disc charge to home on furosemide 40 mg once a day. (6) Iron deficiency anemia: PLAN: Continue oral iron on discharge. IV iron during hospitalization. Hemoglobin 7.9 g. HPI Consult Data Date of Consult: 05/05/22 HPI Narrative Reason for Consultation: CKD, hyperkalemia, hyponatremia HPI Narrative: SILVERIO HOGAN, is a 51 F well-known to me with CKD stage 5 due to diabetes status post right upper arm AV fistula placement on April 02 presents to the emergency room on 05/04 for complaints of shortness of breath. She was ordered a 24-hour urine collection and was drinking more fluids than usual. Her sodium level is low at 122 on presentation to the emergency room with a creatinine of 4.4 and potassium of 5.9. She has a history of chronically elevated potassium levels corrected with Kayexalate. She is on sodium bicarb tablets for metabolic acidosis. She remains on oral iron for iron deficiency anemia. Hemoglobin dropped down to 7.9 today. Currently denies any nausea, vomiting, tremors, shortness of breath improved with Lasix. Denies any dysuria, hematuria, fever, chills, or cough. Denied any chest pain. [facility] Medical History (Updated 05/05/22 @ 09:[address] Ivory Reynaga DO) Anemia Anxiety Arthritis Back pain Cancer Diabetes Former smoker Gastric reflux High cholesterol History of basal cell cancer History of echocardiogram History of irregular heartbeat History of pain when walking History of renal disease Hypertension Injury of head and neck Post-menopausal Wears dentures Wears glasses Home Medications gabapentin 300 mg capsule 900 mg PO QHS 05/27/16 [History Last Taken 04/01/22] amlodipine 10 mg tablet 10 mg PO DAILY bp 04/16/19 [History Last Taken 04/06/19] bupropion HCl 300 mg 24 hr tablet, extended release 300 mg PO QHS depression 04/16/19 [History Last Taken 04/01/22] cholecalciferol (vitamin D3) 25 mcg (1,000 unit) tablet 1,000 unit PO DAILY supplement 04/16/19 [History Last Taken 04/01/22] lysine 1,000 mg tablet 1,000 mg PO DAILY supplement 04/16/19 [History Last Taken 04/01/22] multivitamin 1 tab PO DAILY supplement 04/16/19 [History Last Taken 04/01/22] sodium bicarbonate 650 mg tablet 1,300 mg PO 0800 acid 04/16/19 [History Last Taken 04/01/22] ferrous sulfate 325 mg (65 mg iron) tablet 325 mg PO BID supplement 04/22/19 [History Last Taken 04/01/22] sodium bicarbonate 650 mg tablet 650 mg PO QHS acid 04/22/19 [History Last Taken 04/01/22] calcium acetate(phosphat bind) 667 mg capsule 1 cap PO TID 03/23/22 [History Last Taken 04/01/22] conj estrogen-medroxyprogesterone 0.625 mg-2.5 mg tablet (Prempro) 1 tab PO DAILY 03/23/22 [History Last Taken 04/01/22] famotidine 20 mg tablet 20 mg PO BID 03/23/22 [History Last Taken Unknown] fluoxetine 40 mg capsule 40 mg PO DAILY 03/23/22 [History Last Taken 04/01/22] magnesium 200 mg tablet 400 mg PO BID 03/23/22 [History Last Taken 04/01/22] metoprolol succinate 25 mg tablet,extended release 24 hr 50 tab PO QHS 03/23/22 [History Last Taken 04/01/22] atorvastatin 80 mg tablet 80 mg PO QHS 05/04/22 [History Last Taken Unknown] Allergy/AdvReac Type Severity Reaction Status Date / Time No Known Allergies Allergy Verified 05/04/22 09:40 Surgical History H/O local excision of skin lesion History of arteriovenostomy for renal dialysis (~03/2022) Hx of tooth extraction Social History (Updated 03/20/22 @ 13:09 by Mila Lubin) Smoking Status: Former smoker alcohol intake: never ROS Constitutional Constitutional: Denies chills, fever(s), malaise or weakness Eyes Eyes: Denies change in vision ENT HEENT: Denies dry mouth Cardiovascular Cardiovascular: Reports dyspnea on exertion and edema; Denies chest pain, orthopnea or syncope Respiratory/Chest Respiratory/Chest: Reports dyspnea on exertion; Denies productive cough Gastrointestinal Gastrointestinal: Denies abdominal pain, anorexia, diarrhea or nausea Genitourinary Genitourinary: Denies change in urinary stream Musculoskeletal Musculoskeletal: Denies abnormal gait Integumentary Integumentary: Denies rash Neurologic Neurologic: Denies abnormal gait Psychiatric Psychiatric: Denies anxiety or confusion Hematologic/Lymphatic Hematologic/Lymphatic: Reports anemia Physical Exam Const alert, oriented x3 and no apparent distress General Appearance: well developed Resp clear to auscultation bilaterally Cardio regular rate Rate: bradycardia GI non-tender and non-distended Auscultation: normoactive bowel sounds Palpation: soft Extremity no clubbing, cyanosis or edema General Extremity: AV fistula Skin no rashes or lesions noted General Skin Exam: Negative for ecchymosis Neuro CN's II-XII intact bilaterally Sensorium / Orientation: awake and alert Motor Exam: Negative for tremor Lab / Micro Data Result Diagrams: 05/05/22 06:45 05/05/22 06:45 Labs: Laboratory Results - last 24 hr 05/04/22 09:52: WBC 9.0, RBC 3.23 L, Hgb 8.6 L, Hct 26.6 L, MCV 82.4, MCH 26.6 L, MCHC 32.3, RDW Std Deviation 41.5, RDW Coeff of Mandy 13.5, Plt Count 277, MPV 10.1, Immature Gran % (Auto) 0.600, Neut % (Auto) 78.3 H, Lymph % (Auto) 14.1 L, [place] % (Auto) 4.4, Eos % (Auto) 2.0, Baso % (Auto) 0.6, Absolute Neuts (auto) 7.0, Absolute Lymphs (auto) 1.26, Nucleated RBC % 0 05/04/22 09:52: Sodium 122 L, Potassium 5.9 H, Chloride 95 L, Carbon Dioxide 21.0, Anion Gap 6, BUN 56 H, Creatinine 4.43 H, Estim Creat Clear Calc 11.03, Est GFR (MDRD) Af Amer 14 L, Est GFR (MDRD) Non-Af 11 L, BUN/Creatinine Ratio 12.6, Glucose 124 H, Calcium 9.2, Magnesium 2.0, Troponin I High Sens 13 05/04/22 09:52: B-Natriuretic Peptide 822.5 H 05/04/22 11:01: Urine Color Straw, Urine Clarity Clear, Urine pH 7.0, Ur Specific [place] 1.010, Urine Protein 500 H, Urine Glucose (UA) 50 H, Urine Ketones Negative, Urine Occult Blood 10 H, Urine Nitrite Negative, Urine Bilirubin Negative, Urine Urobilinogen Normal, Ur Leukocyte Esterase 25 H, Urine RBC 0 SEEN, Urine WBC 5-10 SEEN, Ur Squamous Epith Cells 0-5 SEEN, Urine Bacteria 1+, WBC Casts 0-5 SEEN, Urine Mucus 0 SEEN 05/04/22 14:20: Troponin I High Sens 16 05/04/22 14:20: Iron 43 L, TIBC 306, Iron Saturation 14.1 L, Ferritin 217 05/04/22 16:04: POC Glucose 172 H 05/04/22 16:14: Troponin I High Sens 14 05/04/22 20:20: Troponin I High Sens 16 05/04/22 21:34: POC Glucose 123 H 05/05/22 06:24: POC Glucose 114 H 05/05/22 06:45: WBC 6.8, RBC 3.00 L, Hgb 7.9 L, Hct 24.7 L, MCV 82.3, MCH 26.3 L, MCHC 32.0, RDW Std Deviation 41.5, RDW Coeff of Mandy 13.9, Plt Count 260, MPV 10.3, Immature Gran % (Auto) 0.400, Neut % (Auto) 65.0, Lymph % (Auto) 23.1, [place] % (Auto) 7.5, Eos % (Auto) 3.4, Baso % (Auto) 0.6, Absolute Neuts (auto) 4.4, Absolute Lymphs (auto) 1.58, Nucleated RBC % 0 05/05/22 06:45: Sodium 129 L, Potassium 4.4, Chloride 99, Carbon Dioxide 20.0 L, Anion Gap 10, BUN 62 H, Creatinine 4.73 H, Estim Creat Clear Calc 10.86, Est GFR (MDRD) Af Amer 13 L, Est GFR (MDRD) Non-Af 10 L, BUN/Creatinine Ratio 13.1, Glucose 107 H, Calcium 9.2 Micro: Microbiology 05/04/22 10:14 Nasal Secretion SARS-CoV-2 & FLU Antigen (Rapid) - Final Radiology Impression Chest X-Ray 05/04/22 10:20 IMPRESSION: Poor inspiration with some bibasilar atelectasis and tiny bilateral pleural effusions. Electronically Signed: Yaya Moreira MD at 11:06 EDT ,
[2022-05-05] MEDS: Calcium Acetate 667 MG Capsule PO ×3 (09:33→15:59)
[2022-05-05] MEDS: Fluoxetine HCl 40 MG CAPSULE PO (09:33)
[2022-05-05] MEDS: Cholecalciferol (VIT D3) 25 MCG TABLET (1,000 UNITS) PO (09:33)
[2022-05-05] MEDS: amLODIPine 10 MG Tablet PO (09:33)
[2022-05-05] MEDS: Magnesium Chloride 64 MG Delay Rel.Tablet 128 MG PO ×2 (09:33→21:08)
[2022-05-05] MEDS: Famotidine 20 MG Tablet PO (09:33)
[2022-05-05] MEDS: Sodium Bicarbonate 650 MG Tablet 1300 MG PO (09:34)
[2022-05-05] MEDS: Multivitamins,Therapeutic Tablet 1 TABLET PO (09:34)
[2022-05-05] MEDS: Ferrous Sulfate 325 MG Tablet PO ×2 (09:35→15:59)
[2022-05-05] MEDS: Insulin Lispro 100 UNIT/ML INSULN.PEN SC ×2 (11:26→21:15)
[2022-05-05 11:55] LABS: Bedside Glucose 200 mg/dL (74-106)
--- NOTE | 2022-05-05 12:33 | PN.HOSP_ITS ---
Subjective Subjective Patient seen and examined. She had no active complaints and had an uneventful night. Systems otherwise negative. She has remained hemodynamically stable. Sodium is up to 129 today and creatinine is slightly up to 4.73. Objective Data Objective Data Vital Signs: Vital Signs Temp Pulse Resp BP Pulse Ox O2 Del Method O2 Flow Rate 97.2 F L 59 L 20 H 104/80 100 Nasal Cannula 3 05/05/22 09:31 05/05/22 09:31 05/05/22 09:31 05/05/22 12:10 05/05/22 09:31 05/05/22 09:31 05/05/22 09:31 Oxygen Flow Rate (L/min) 3 Oxygen Delivery Method Nasal Cannula Weight: 162 lb Body Mass Index (BMI) 30.6 Intake & Output: Intake and Output for Last 24 Hours 05/03/22 05/04/22 05/05/22 23:59 23:59 23:59 Intake Total 200 / 310 110 / 110 Output Total 0 / 0 Balance 200 / 310 110 / 110 Lab / Micro Data Result Diagrams: 05/05/22 06:45 05/05/22 06:45 Labs: Laboratory Results - last 24 hr 05/04/22 14:20: Troponin I High Sens 16 05/04/22 14:20: Iron 43 L, TIBC 306, Iron Saturation 14.1 L, Ferritin 217 05/04/22 16:04: POC Glucose 172 H 05/04/22 16:14: Troponin I High Sens 14 05/04/22 20:20: Troponin I High Sens 16 05/04/22 21:34: POC Glucose 123 H 05/05/22 06:24: POC Glucose 114 H 05/05/22 06:45: WBC 6.8, RBC 3.00 L, Hgb 7.9 L, Hct 24.7 L, MCV 82.3, MCH 26.3 L , MCHC 32.0, RDW Std Deviation 41.5, RDW Coeff of Mandy 13.9, Plt Count 260, MPV 10.3, Immature Gran % (Auto) 0.400, Neut % (Auto) 65.0, Lymph % (Auto) 23.1, [place] % (Auto) 7.5, Eos % (Auto) 3.4, Baso % (Auto) 0.6, Absolute Neuts (auto) 4.4, Absolute Lymphs (auto) 1.58, Nucleated RBC % 0 05/05/22 06:45: Sodium 129 L, Potassium 4.4, Chloride 99, Carbon Dioxide 20.0 L, Anion Gap 10, BUN 62 H, Creatinine 4.73 H, Estim Creat Clear Calc 10.86, Est GFR (MDRD) Af Amer 13 L, Est GFR (MDRD) Non-Af 10 L, BUN/Creatinine Ratio 13.1, Glucose 107 H, Calcium 9.2 05/05/22 11:24: POC Glucose 200 H Micro: Microbiology 05/04/22 11:07 Urine, Clean Catch Urine Culture - Preliminary Culture exhibits no growth. 05/04/22 10:14 Nasal Secretion SARS-CoV-2 & FLU Antigen (Rapid) - Final Physical Exam Const alert, oriented x3 and no apparent distress General Appearance: cooperative HEENT normocephalic, head/scalp atraumatic, hearing grossly normal bilaterally and moist oral mucous membranes Head and Scalp: normocephalic Mouth: oral and palatal mucosa normal Eyes PERRL, EOMs intact bilaterally and conjunctivae normal Neck no lymphadenopathy, supple and no JVD Resp Resp Narrative: mildly diminished breath sounds bibasally, no wheezes or crackles. On room air Cardio regular rate, regular rhythm, S1 normal heart sound, S2 normal heart sound and no murmurs GI normal to inspection, nondistended, normoactive bowel sounds, soft to palpation, non-tender and non-distended Extremity normal to inspection, full ROM and no clubbing, cyanosis or edema Extremity Narrative: restless leg syndrome Neuro oriented x3, CN's II-XII intact bilaterally and moves all extremities Sensorium / Orientation: awake and alert Speech: speech normal Motor Exam: strength 5/5 throughout Psych affect normal Assessment & Plan Assessment/Plan (1) Hyponatremia: (2) Fluid overload: PLAN: Plan # Hypoxia due to fluid overload from worsening CKD stage V * remains on 3L of oxygen by nasal canula * CR is up to 4.73 today * being diuresed with IV lasix 40mg bid. * BN is elevated at 825; initial troponin not elevated * Cr is 4.43; she had a fistula inserted in [place] a month ago * nephrology on board. * monitor intake and output. Fluid restriction to 1500cc daily. * On bicarb and calcium acetate * 24 hour urine for creatinine clearance ordered per nephrology * #Hyperkalemia: resolved with kayexalate. K is 4. #Hyponatremia: Na is up to 129 today. Improving with dialysis. #Anemia * Hb is 7.9. * iron panel showed iron level of 43 with iron sautration of 14.1, which is slightly low. * on oral iron supplements * ##Type 2 diabetes mellitus: On insulin sliding scale. Accu-Cheks ACH S. #Hyperlipidemia: On statin #Depression: On bupropion and paroxetine #Hypertension: On metoprolol and amlodipine. DVT prophylaxis: Lovenox 30 mg daily CODE STATUS: Full code * Charges/Coding Visit Charges Inpatient E&M: 57163 Subs Hosp L2
[2022-05-05 16:36] LABS: Bedside Glucose 115 mg/dL (74-106)
--- NOTE | 2022-05-05 19:28 | CASEMGMT ---
Face to Face with patient for initial transition planning/care coordination assessment. FRANCISCO RICO introduced self and role at [facility], voices understanding. Pt alert and agreeable to discussion. Care providers, pharmacy, and demographics verified. PCP: Milo Specialists: Ronnell Hi Pharmacy: [facility] Benef[facility]: yes LNOK: father Martin Living Arrangements: Pt lives alone in a second floor duplex with 13 steps (outside) to enter the home. Pt states there is a handrail and she tolerates these. Pt states she is independent with ADLs including household tasks. Transportation: Pt drives and her father drives if assistance needed DME: none SNF/HH: pt denies any previous SNF or HH skilled service need Plan: pt states she plans to go home at discharge. States she has an appointment on Saturday with her eye doctor that her father is taking her too. Discussed fistula placement and potential dialysis. Pt states she may go to [facility] in [place] if HD is needed to be started. Will continue to monitor and assist with discharge planning coordination as needs determined. John Rubio RN CM
[2022-05-05] MEDS: Sodium Bicarbonate 650 MG Tablet PO (21:08)
[2022-05-05] MEDS: Atorvastatin Calcium 80 MG Tablet PO (21:08)
[2022-05-05] MEDS: Gabapentin 300 MG Capsule 900 MG PO (21:08)
[2022-05-05] MEDS: Pramipexole Di-HCl 0.25 MG Tablet PO (21:09)
[2022-05-05] MEDS: Metoprolol(XL)Succ 50 MG Tablet PO (21:11)
[2022-05-05] MEDS: hydrALAZINE 20 MG/ML Vial 10 MG IV (21:12)
[2022-05-05 23:05] LABS: Bedside Glucose 177 mg/dL (74-106)
[2022-05-06 03:10] VITALS: BP 164/66; PULSE 57; RESP 16; TEMP 35.9; O2SAT 94
[2022-05-06 03:12] VITALS: PULSE 57
[2022-05-06] MEDS: Enoxaparin 30 MG/0.3 ML Syringe SC (05:22)
[2022-05-06 06:50] LABS: Absolute Lymphocyte Count 1.18 X10^3/uL (0.83-4.51); Absolute Neutrophil Count 3.5 X10^3/uL (2.0-7.7); Basophil# 0.03 X10^3/uL; Basophil% 0.6 % (0-1); Eosinophil# 0.19 X10^3/uL; Eosinophils% 3.5 % (0-5); Hematocrit 24.2 % (37-47); Hemoglobin 7.9 g/dL (12.0-15.0); Lymphocyte # 1.18 X10^3/ul (0.83-4.51); Mean Corp Hgb Conc 32.6 g/dL (32-36); Mean Corpuscular Hgb 26.4 pg (27.0-32.0); Mean Corpuscular Volume 80.9 fL (81-99); Mean Platelet Vol. 11.7 fl (6.2-12.0); Monocyte# 0.44 X10^3/uL; Monocyte% 8.2 % (0-10); NRBC Flagged by Analyzer 0 % (0-5); Neutrophil # 3.49 X10^3/uL (2.7-7.7); Neutrophil % 65.1 % (47-70); POSITIVE COUNT YES; Platelet Count 129 K/mm3 (150-450); RBC Distribution Width CV 14.1 % (11.6-14.6); RBC Distribution Width SD 40.6 fl (35.1-43.9); Red Blood Count 2.99 M/mm3 (4.2-5.4); White Blood Count 5.4 K/mm3 (4.4-11.0)
[2022-05-06 06:51] LABS: Differential Indicated SCAN CRITERIA MET
[2022-05-06 06:56] LABS: Bedside Glucose 114 mg/dL (74-106)
[2022-05-06 07:03] VITALS: PULSE 56
[2022-05-06 07:07] LABS: Differential Comment SCANNED; Platelet Estimate ADEQUATE (ADEQ)
[2022-05-06 07:08] LABS: Anisocytosis 1+; Microcytosis 1+
[2022-05-06 07:12] LABS: Anion Gap 11 (5-15); BUN 62 mg/dL (7-18); BUN/Creat Ratio 12.4 RATIO (10-20); Calcium,Total 9.3 mg/dL (8.5-10.1); Chloride 98 mmol/L (98-107); Creatinine, Serum 4.99 mg/dL (0.55-1.02); EST Glomerular Filtration Rate 10 mL/min (>60); Est Glom Filt Rate - Afr Amer 12 mL/min (>60); Estimated Creatinine Clearance 10.29 ml/min; Glucose 108 mg/dL (74-106); Potassium 4.3 mmol/L (3.5-5.1); Sodium Level 127 mmol/L (136-145)
[2022-05-06 07:24] VITALS: O2SAT 93
[2022-05-06 09:10] VITALS: BP 150/59; PULSE 58; RESP 18; TEMP 36.4; O2SAT 96
[2022-05-06] MEDS: Sodium Bicarbonate 650 MG Tablet 1300 MG PO (09:43)
[2022-05-06] MEDS: Furosemide 40 MG Tablet PO (09:43)
[2022-05-06] MEDS: Magnesium Chloride 64 MG Delay Rel.Tablet 128 MG PO (09:44)
[2022-05-06] MEDS: amLODIPine 10 MG Tablet PO (09:44)
[2022-05-06] MEDS: Famotidine 20 MG Tablet PO (09:44)
[2022-05-06] MEDS: Fluoxetine HCl 40 MG CAPSULE PO (09:44)
[2022-05-06] MEDS: Ferrous Sulfate 325 MG Tablet PO (09:44)
[2022-05-06] MEDS: Multivitamins,Therapeutic Tablet 1 TABLET PO (09:44)
[2022-05-06] MEDS: Cholecalciferol (VIT D3) 25 MCG TABLET (1,000 UNITS) PO (09:44)
[2022-05-06] MEDS: Calcium Acetate 667 MG Capsule PO ×2 (09:44→12:03)
[2022-05-06 10:14] LABS: 24HR. UA Prot. Total Volume 1650 mL
[2022-05-06 10:27] LABS: Creat.Clear Total Volume 1650 mL; Creatinine Clearance 10 ml/min (100-200); Creatinine Urine 43.8 mg/dL (NO RANGE EST.); EST Glomerular Filtration Rate 10 mL/min (>60); Est Glom Filt Rate - Afr Amer 10 mL/min (>60)
[2022-05-06 11:40] LABS: Bedside Glucose 133 mg/dL (74-106)
--- NOTE | 2022-05-06 14:03 | DS.PCM_ITS ---
Providers Date of Admission: 05/04/22 Date of Discharge: 05/06/22 Primary Care Physician: Colin Pedraza Consultations 05/04/22 14:15 Consult: Nephrology Routine Consulting Provider: Ivory Reynaga Reason for Consult: fluid overload in ESRD EMERGENT Consult: No MD Notified: Yes Date Notified: 05/04/22 Time Notified: 14:15 Method of Notification: Text Reason For Visit: HYPERKALEMIA, FLUID OVERLOAD Diagnosis Discharge Diagnosis (1) Hyponatremia: Status: Acute Code(s): E87.1 - Hypo-osmolality and hyponatremia (2) Fluid overload: Status: Acute Code(s): E87.70 - Fluid overload, unspecified Plan # Hypoxia due to fluid overload from worsening CKD stage V * remains on 3L of oxygen by nasal canula * CR is up to 4.73 today * being diuresed with IV lasix 40mg bid. * BN is elevated at 825; initial troponin not elevated * Cr is 4.43; she had a fistula inserted in [facility] a month ago * nephrology on board. * monitor intake and output. Fluid restriction to 1500cc daily. * On bicarb and calcium acetate * 24 hour urine for creatinine clearance ordered per nephrology * #Hyperkalemia: resolved with kayexalate. K is 4. #Hyponatremia: Na is up to 129 today. Improving with dialysis. #Anemia * Hb is 7.9. * iron panel showed iron level of 43 with iron sautration of 14.1, which is sl ightly low. * on oral iron supplements * ##Type 2 diabetes mellitus: On insulin sliding scale. Accu-Cheks ACH S. #Hyperlipidemia: On statin #Depression: On bupropion and paroxetine #Hypertension: On metoprolol and amlodipine. DVT prophylaxis: Lovenox 30 mg daily CODE STATUS: Full code * Medications at Discharge Home Medications gabapentin 300 mg capsule 900 mg PO QHS 05/27/16 amlodipine 10 mg tablet 10 mg PO DAILY bp 04/16/19 bupropion HCl 300 mg 24 hr tablet, extended release 300 mg PO QHS depression 04/16/19 cholecalciferol (vitamin D3) 25 mcg (1,000 unit) tablet 1,000 unit PO DAILY supplement 04/16/19 lysine 1,000 mg tablet 1,000 mg PO DAILY supplement 07/25/19 multivitamin 1 tab PO DAILY supplement 04/16/19 sodium bicarbonate 650 mg tablet 1,300 mg PO 0800 acid 04/16/19 ferrous sulfate 325 mg (65 mg iron) tablet 325 mg PO BID supplement 04/22/19 sodium bicarbonate 650 mg tablet 650 mg PO QHS acid 04/22/19 calcium acetate(phosphat bind) 667 mg capsule 1 cap PO TID 03/23/22 conj estrogen-medroxyprogesterone 0.625 mg-2.5 mg tablet (Prempro) 1 tab PO DAILY 03/23/22 famotidine 20 mg tablet 20 mg PO BID 03/23/22 fluoxetine 40 mg capsule 40 mg PO DAILY 03/23/22 magnesium 200 mg tablet 400 mg PO BID 03/23/22 metoprolol succinate 25 mg tablet,extended release 24 hr 50 tab PO QHS 03/23/22 atorvastatin 80 mg tablet 80 mg PO QHS 05/04/22 furosemide 40 mg tablet 40 mg PO DAILY #30 tabs 05/06/22 pramipexole 0.25 mg tablet 0.25 mg PO QHS #30 tabs 05/06/22 Hospital Course Operations None Procedures None Summary of Care Provided Minutes Spent on Discharge: 45 Hospital Course: SILVERIO HOGAN, is a 51 F with an extensive PMH as outlined who presents via the ED on 05/04/2022 with a complaint of chest pain. Symptoms started about 4-5 days prior to admission, and also complained of swelling in her lower extremities. She has had increasing shortness of breath as well as orthopnea and PND. She denied any fever, chills, nausea, vomiting or diarrhea. Review of systems is otherwise negative. Vitals in the ED were BP of 177/71, VT of 61, RR of 20 and oxygen sats of 95% on room air. CBC showed hb of 8.6, wbc of 9 and platelets of 277. BMp showed sodium of 122, potassium of 5.9 and Cr of 4.43. Bicarb is 21. BNP is 822.5. Urinalysis showed 1+ bacteria. CXR showed poor inspiration with some bibasilar atelectasis and tiny bilateral pleural effusion. Of note, she had a fistula placed ~ a month ago, and has not been started on dialysis yet. She is being admitted to be managed for fluid overload and hyperkalemia likely due to worsening CKD STAGE 5. Nephrology was consulted. She was given potassium depleting cocktail as well as kayexalate; hyperkalemia resolved. Patient was diuresed with IV lasix 40mg bid. Shortness of breath and lower extremity swelling resolved. She felt much better. Her creatinine trended upwards to a peak of 5 and this was thought to be likely due to the Lasix as well. Patient's symptoms however completely resolved and her student union consultant thought that she was stable to go home even with a creatinine of 5. Patient was therefore discharged home on 05/06/2022 and is to follow-up with her primary care doctor as well as nephrology within 1 to 2 weeks. She is follow-up with a PCP for BMP within 1 week. Patient seen and examined prior to discharge. She felt well and had no active complaints. She had an uneventful night. Review of systems otherwise negative. Labs and vitals reviewed. Home medication reviewed and reconciled. Physical Exam Const alert, oriented x3 and no apparent distress General Appearance: cooperative, comfortable and well kempt HEENT normocephalic, head/scalp atraumatic, hearing grossly normal bilaterally and moist oral mucous membranes Mouth: oral and palatal mucosa normal Eyes PERRL, EOMs intact bilaterally and conjunctivae normal Neck no lymphadenopathy, supple and no JVD Resp normal respiratory effort, no retractions and no use of accessory muscles Resp Narrative: mildly diminished breath sounds bibasally, no wheezes or crackles. On room air Cardio regular rate, regular rhythm, S1 normal heart sound, S2 normal heart sound and no murmurs GI normal to inspection, nondistended, normoactive bowel sounds, soft to palpation, non-tender and non-distended Extremity normal to inspection, full ROM and no clubbing, cyanosis or edema Extremity Narrative: restless leg syndrome Skin no rashes or lesions noted Neuro oriented x3, CN's II-XII intact bilaterally and moves all extremities Sensorium / Orientation: awake and alert Speech: speech normal Motor Exam: strength 5/5 throughout Psych affect normal Weight / BMI Weight Weight: 162 lb Body Mass Index (BMI) 30.6 ABG / Lab / Microbiology Data Result Diagrams: 05/06/22 06:00 05/06/22 09:58 Laboratory: Laboratory Results - last 24 hr 05/05/22 15:57: POC Glucose 115 H 05/05/22 21:14: POC Glucose 177 H 05/06/22 06:00: WBC 5.4, RBC 2.99 L, Hgb 7.9 L, Hct 24.2 L, MCV 80.9 L, MCH 26.4 L, MCHC 32.6, RDW Std Deviation 40.6, RDW Coeff of Mandy 14.1, Plt Count 129 L, MPV 11.7, Immature Gran % (Auto) 0.600, Neut % (Auto) 65.1, Lymph % (Auto) 22.0, [place] % (Auto) 8.2, Eos % (Auto) 3.5, Baso % (Auto) 0.6, Absolute Neuts (auto) 3.5, Absolute Lymphs (auto) 1.18, Nucleated RBC % 0, Differential Comment SCANNED, Platelet Estimate ADEQUATE, Anisocytosis 1+, Microcytosis 1+ 05/06/22 06:00: Sodium 127 L, Potassium 4.3, Chloride 98, Carbon Dioxide 18.0 L, Anion Gap 11, BUN 62 H, Creatinine 4.99 H, Estim Creat Clear Calc 10.29, Est GFR (MDRD) Af Amer 12 L, Est GFR (MDRD) Non-Af 10 L, BUN/Creatinine Ratio 12.4, Glucose 108 H, Calcium 9.3 05/06/22 06:33: POC Glucose 114 H 05/06/22 09:58: Creatinine 5.0 H, Est GFR (MDRD) Af Amer 10 L, Est GFR (MDRD) Non-Af 10 L, Urine Collection Time 24.0, Timed Urine Volume 1650, Urine Creatinine 43.8, Creatinine Clearance 10 L 05/06/22 09:58: Urine Collection Time 24.0, Timed Urine Volume 1650, Ur Total Protein 24 Hr 8316.0 H, Urine Total Protein 504.0 H 05/06/22 11:21: POC Glucose 133 H Microbiology: Microbiology 05/04/22 11:07 Urine, Clean Catch Urine Culture - Preliminary Culture exhibits no growth. 05/04/22 10:14 Nasal Secretion SARS-CoV-2 & FLU Antigen (Rapid) - Final D/C Instructions Discharge Diet: Low fat / Low cholesterol and Renal Diet Discharge Activity: Return to Normal Activity Weight Bearing Status: Weight bearing as tolerated Call your doctor if you observe: Fever of 101 or Higher, Shortness of breath, Dizziness, Swelling in the ankles, Chest pain and Increased palpitations (irregular heartbeat) Meaningful Use Info Meaningful Use Diagnoses (Choose all that apply): None applicable Discharge Plan Admission Admit Date/Time: 05/04/22 11:52 Primary Reason for Your Visit: fluid overload, hyperkalemia in worsening CKD 5 Attending Provider: Lydia Garcia Primary Care Provider: Colin Pedraza Consulting Providers: Ivory Reynaga Instructions Patient Instructions: CKD Dc, Hyperkalemia Dc Discharge Orders/Prescriptions Prescriptions: New furosemide 40 mg Tablet 40 mg PO DAILY Qty: 30 1RF pramipexole 0.25 mg Tablet 0.25 mg PO QHS Qty: 30 1RF Continued gabapentin 300 MG capsule 900 mg PO QHS multivitamin 1 EACH tablet 1 tab PO DAILY lysine 1,000 MG tablet 1,000 mg PO DAILY sodium bicarbonate 650 MG tablet 1,300 mg PO 0800 amlodipine 10 MG tablet 10 mg PO DAILY Label Comments: TAKE 1 TABLET BY MOUTH DAILY bupropion HCl 300 MG tablet extended release 24 hr 300 mg PO QHS cholecalciferol (vitamin D3) 1,000 UNIT tablet 1,000 unit PO DAILY sodium bicarbonate 650 MG tablet 650 mg PO QHS ferrous sulfate 325 MG tablet 325 mg PO BID Label Comments: TAKE 1 TABLET EVERY DAY WITH breakfast fluoxetine 40 mg capsule 40 mg PO DAILY Label Comments: TAKE 1 CAPSULE BY MOUTH EVERY MORNING famotidine 20 mg tablet 20 mg PO BID Label Comments: TAKE 1 TABLET BY MOUTH TWICE DAILY metoprolol succinate 25 mg tablet extended release 24 hr 50 tab PO QHS Label Comments: Take 1 tablet by mouth once daily. Prempro 0.625-2.5 mg tablet 1 tab PO DAILY Label Comments: Take 1 tablet by mouth once daily. magnesium 200 mg Tablet 400 mg PO BID calcium acetate(phosphat bind) 667 mg capsule 1 cap PO TID Label Comments: TAKE 1 CAPSULE BY MOUTH THREE TIMES DAILY WITH MEALS atorvastatin 80 mg Tablet 80 mg PO QHS Referrals / Follow Up: Ivory Reynaga DO [Med Staff - Consulting] - Within 1 Week Colin Pedraza [Primary Care Provider] - Within 1 Week Disposition Disposition (needs filled in before D/C Order can be placed): Home, Self Care Charges/Coding Visit Charges Inpatient E&M: 53599 Disch Hosp
== END 2022-05-06 16:23 | disposition home or self-care (01) | DRG 426 ==
LOC: ED 12:00 → PCU 12:10
PROVIDERS: Internal Medicine Nephrology; Nurse Practitioner; Admitting Provider Student in an Organized Health Care Education/Training Program; Emergency Provider Emergency Medicine; PCP Student in an Organized Health Care Education/Training Program; Visit Provider Student in an Organized Health Care Education/Training Program
DX: E87.1 Hypo-osmolality and hyponatremia (principal); I12.0 Hypertensive chronic kidney disease with stage 5 chronic kidney disease or end stage renal disease; J90 Pleural effusion, not elsewhere classified; E11.22 Type 2 diabetes mellitus with diabetic chronic kidney disease; E78.00 Pure hypercholesterolemia, unspecified; D50.9 Iron deficiency anemia, unspecified; N18.5 Chronic kidney disease, stage 5; E78.5 Hyperlipidemia, unspecified; E87.70 Fluid overload, unspecified; E87.5 Hyperkalemia; F32.A Depression, unspecified; Z87.891 Personal history of nicotine dependence; R09.02 Hypoxemia
CPT/HCPCS: 36415; 71046; 80048; 81001; 82575; 82728; 82962; 83540; 83550; 83735; 83880; 84156; 84484; 85025; 87086; 87088; 87428; 93005; 97802; 99284; J7050; A4216; J1940; J2916

== ENCOUNTER 2022-05-07 12:11 | Emergency (ER) | payer MEDICAID, SELFPAY ==
[2022-05-07 12:13] VITALS: BP 139/68; PULSE 55; RESP 18; TEMP 36.1; O2SAT 100; BMI 30.8
--- NOTE | 2022-05-07 14:43 | EX.ED.DYSGE1 ---
HPI History of Present Illness Chief Complaint: Abn Labs Detail of Chief Complaint: Symptomatic anemia Informant: patient and other (Prn Physical Therapist/oncologist) Onset/Context/Timing Onset: Days Context: Gradual Onset Timing: Continuous Quality: Dyspnea on exertion, fatigue, and malaise Current Severity: Mild Maximum Severity: Moderate Worsened by: Activity Relieved by: Better with rest Associated Symptoms Associated Symptoms: Iron deficiency anemia and anemia due to chronic renal disease stage V Narrative Narrative: Patient is a 51-year-old woman with history of stage V renal disease with chronic anemia, iron deficiency who was sent to the emergency department for symptomatic anemia. Hemoglobin today is 7.5. This is a drop from 7.9 on May 05 and 8.6 on May 04. Patient denies black or maroon-colored stool. She has dark stool due to iron. She states her anemia is due to kidney disease. She has been transfused in the past. She denies orthopnea or PND. She does report mild edema of the lower extremity. She states she has not been as active. She denies vomiting, or abdominal pain. Prior similar symptoms: Yes Recent Illness/Hospitalization: No PFSH PFS Medical History Anemia Anxiety Arthritis Back pain Cancer Diabetes Former smoker Gastric reflux High cholesterol History of basal cell cancer History of echocardiogram History of irregular heartbeat History of pain when walking History of renal disease Hypertension Injury of head and neck Post-menopausal Wears dentures Wears glasses Home Medications gabapentin 300 mg capsule 900 mg PO QHS 05/27/16 [History Last Taken 04/01/22] amlodipine 10 mg tablet 10 mg PO DAILY bp 04/16/19 [History Last Taken 04/06/19] bupropion HCl 300 mg 24 hr tablet, extended release 300 mg PO QHS depression 04/16/19 [History Last Taken 04/01/22] cholecalciferol (vitamin D3) 25 mcg (1,000 unit) tablet 1,000 unit PO DAILY supplement 04/16/19 [History Last Taken 04/01/22] lysine 1,000 mg tablet 1,000 mg PO DAILY supplement 04/16/19 [History Last Taken 04/01/22] multivitamin 1 tab PO DAILY supplement 04/16/19 [History Last Taken 04/01/22] sodium bicarbonate 650 mg tablet 1,300 mg PO 0800 acid 04/16/19 [History Last Taken 04/01/22] ferrous sulfate 325 mg (65 mg iron) tablet 325 mg PO BID supplement 04/22/19 [History Last Taken 04/01/22] sodium bicarbonate 650 mg tablet 650 mg PO QHS acid 04/22/19 [History Last Taken 04/01/22] calcium acetate(phosphat bind) 667 mg capsule 1 cap PO TID 03/23/22 [History Last Taken 04/01/22] conj estrogen-medroxyprogesterone 0.625 mg-2.5 mg tablet (Prempro) 1 tab PO DAILY 03/23/22 [History Last Taken 04/01/22] famotidine 20 mg tablet 20 mg PO BID 03/23/22 [History Last Taken Unknown] fluoxetine 40 mg capsule 40 mg PO DAILY 03/23/22 [History Last Taken 04/01/22] magnesium 200 mg tablet 400 mg PO BID 03/23/22 [History Last Taken 04/01/22] metoprolol succinate 25 mg tablet,extended release 24 hr 50 tab PO QHS 03/23/22 [History Last Taken 04/01/22] atorvastatin 80 mg tablet 80 mg PO QHS 05/04/22 [History Last Taken Unknown] furosemide 40 mg tablet 40 mg PO DAILY #30 tabs 05/06/22 [Rx Last Taken Unknown] pramipexole 0.25 mg tablet 0.25 mg PO QHS #30 tabs 05/06/22 [Rx Last Taken Unknown] Allergy/AdvReac Type Severity Reaction Status Date / Time No Known Allergies Allergy Verified 05/07/22 12:13 Surgical History H/O local excision of skin lesion History of arteriovenostomy for renal dialysis (~03/2022) Hx of tooth extraction Social History (Updated 05/07/22 @ 14:[address] Yobani Gibbons MD) household members: none Smoking Status: Former smoker alcohol intake: never ROS ROS ED Constitutional Constitutional ED: Denies chills, fever(s), subjective, sweats or weight loss Eyes Eyes: Denies change in vision or diplopia ENT ENT ED: Denies ear pain, rhinorrhea or sore throat Cardiovascular Cardiovascular: Denies chest pain, orthopnea, palpitations or paroxysmal nocturnal dyspnea Respiratory/Chest Respiratory/Chest: Reports dyspnea and dyspnea on exertion; Denies cough, orthopnea or paroxysmal nocturnal dyspnea Gastrointestinal Gastrointestinal: Denies abdominal pain, melena, nausea or vomiting Genitourinary Genitourinary ED: Denies dysuria or hematuria Musculoskeletal Musculoskeletal: Reports other Details: Patient complains of bilateral leg discomfort because of swelling. ; Denies arthralgias, back pain or myalgias Integumentary Denies abscess or rash Neurologic Neurologic: Reports weakness; Denies paresthesias Endocrine Endocrinology: Denies cold intolerance or heat intolerance Hematologic/Lymphatic Hematologic/Lymphatic: Reports anemia; Denies easy bleeding or easy bruising EXAM Physical Exam Const Vital Signs: 05/07/22 12:13 05/07/22 12:20 Temperature 96.9 F L Temperature Source Temporal Pulse Rate 55 L Respiratory Rate 18 Respiratory Effort Normal Respiratory Pattern Normal Blood Pressure 139/68 H Blood Pressure Mean 91 Pulse Ox 100 Oxygen Delivery Method Room Air Positive well nourished, well developed and obese Constitutional Narrative: Patient appears pale. General Appearance ED: well developed, NAD and pallor Nutritional Appearance: obese HEENT Reports moist mucous membranes HEENT Narrative: Ears normal. Nares patent. Mucosa moist. Negative for trauma or tenderness Eyes PERRL and EOMs intact bilaterally General Eye ED: Yes pale conjunctiva; Negative for scleral icterus Neck no lymphadenopathy, supple and no JVD Neck Narrative: Trachea is midline. There is no inspiratory expiratory stridor. Chest Wall inspection of chest normal and palpation of chest normal Resp normal respiratory effort and clear to auscultation bilaterally Cardio regular rate, regular rhythm, S1 normal heart sound and S2 normal heart sound; Negative for no murmurs GI normal to inspection, nondistended, normoactive bowel sounds, non-tender, non-distended and no masses; Negative for hepatosplenomegaly Back/Spine no CVA tenderness Thoracic Spine / Upper Back: Negative for thoracic spinal tenderness Lumbar Spine / Lower Back: Negative for lumbar spinal tenderness Extremity Negative for normal to inspection Extremity Narrative: There is no edema of the right and left leg and feet. DP pulses palpable. General Extremety ED: Yes edema; Negative for tenderness General Extremity: edema Neuro oriented x3, CN's II-XII intact bilaterally and no sensory deficits noted Sensorium / Orientation: alert Motor Exam: strength 5/5 throughout Psych mental status grossly normal Skin no rashes or lesions noted and no wounds General Skin Exam: pallor; Negative for jaundice MDM MDM MDM Narrative Medical decision making narrative: Patient was typed and screened and typed and crossed for 1 unit of blood. She received 1 unit of blood and discharged to follow-up with her oncologist Dr. Keren Fernandez. Patient's edema is due to decreased activity, dependent Lab Data Labs: Laboratory Results - last 24 hr 05/07/22 12:28 Blood Type O POSITIVE Antibody Screen NEGATIVE Crossmatch See Detail Procedures Other Procedures Procedure(s): Transfusion of 1 unit of blood for symptomatic anemia Discharge Plan Triage Chief Complaint: Abn Labs Other Complaint: Weakness ED Provider: Yobani Gibbons Dx/Rx/DC Orders Clinical Impression: Symptomatic anemia, Signs and symptoms of anemia, Anemia due to chronic kidney disease Instructions: When You Need a Blood ... Prescriptions: No Action gabapentin 300 MG capsule 900 mg PO QHS multivitamin 1 EACH tablet 1 tab PO DAILY lysine 1,000 MG tablet 1,000 mg PO DAILY sodium bicarbonate 650 MG tablet 1,300 mg PO 0800 amlodipine 10 MG tablet 10 mg PO DAILY Label Comments: TAKE 1 TABLET BY MOUTH DAILY bupropion HCl 300 MG tablet extended release 24 hr 300 mg PO QHS cholecalciferol (vitamin D3) 1,000 UNIT tablet 1,000 unit PO DAILY sodium bicarbonate 650 MG tablet 650 mg PO QHS ferrous sulfate 325 MG tablet 325 mg PO BID Label Comments: TAKE 1 TABLET EVERY DAY WITH breakfast fluoxetine 40 mg capsule 40 mg PO DAILY Label Comments: TAKE 1 CAPSULE BY MOUTH EVERY MORNING famotidine 20 mg tablet 20 mg PO BID Label Comments: TAKE 1 TABLET BY MOUTH TWICE DAILY metoprolol succinate 25 mg tablet extended release 24 hr 50 tab PO QHS Label Comments: Take 1 tablet by mouth once daily. Prempro 0.625-2.5 mg tablet 1 tab PO DAILY Label Comments: Take 1 tablet by mouth once daily. magnesium 200 mg Tablet 400 mg PO BID calcium acetate(phosphat bind) 667 mg capsule 1 cap PO TID Label Comments: TAKE 1 CAPSULE BY MOUTH THREE TIMES DAILY WITH MEALS atorvastatin 80 mg Tablet 80 mg PO QHS furosemide 40 mg Tablet 40 mg PO DAILY Qty: 30 1RF pramipexole 0.25 mg Tablet 0.25 mg PO QHS Qty: 30 1RF Primary Care Provider: Colin Pedraza Referrals: Keren Fernandez MD [Med Staff - Active Staff] - Keep Rajat appointment Colin Pedraza [Primary Care Provider] - As Needed Disposition Disposition: Home, Self Care
[2022-05-07 15:10] VITALS: BP 184/64; PULSE 55; RESP 16; TEMP 36.6; O2SAT 98
[2022-05-07 15:25] VITALS: BP 174/114; PULSE 60; RESP 18; TEMP 36.7; O2SAT 96
[2022-05-07 16:25] VITALS: BP 185/77; PULSE 57; RESP 18; TEMP 36.4; O2SAT 93
[2022-05-07 16:40] VITALS: BP 185/77; PULSE 57; RESP 18; TEMP 36.4; O2SAT 93
[2022-05-07 17:25] VITALS: BP 186/72; PULSE 55; RESP 16; TEMP 36.4; O2SAT 97
== END 2022-05-07 18:02 | disposition home or self-care (01) ==
PROVIDERS: Emergency Provider Emergency Medicine; PCP Student in an Organized Health Care Education/Training Program; Visit Provider Emergency Medicine
DX: D50.9 Iron deficiency anemia, unspecified (principal); E11.22 Type 2 diabetes mellitus with diabetic chronic kidney disease; I12.0 Hypertensive chronic kidney disease with stage 5 chronic kidney disease or end stage renal disease; N18.5 Chronic kidney disease, stage 5; E78.00 Pure hypercholesterolemia, unspecified; Z87.891 Personal history of nicotine dependence; R60.9 Edema, unspecified; R53.1 Weakness; D63.1 Anemia in chronic kidney disease
CPT/HCPCS: 36430; 86850; 86900; 86901; 86920; 86922; 99283; J7030; P9016; A4216

== ENCOUNTER 2022-05-08 13:37 | Emergency (ER) | payer MEDICAID, SELFPAY ==
[2022-05-08 13:37] VITALS: BP 131/109; PULSE 64; RESP 16; TEMP 36.3; O2SAT 99; BMI 27.3
--- NOTE | 2022-05-08 16:09 | EDS_ITS ---
HPI History of Present Illness Chief Complaint: Back Informant: patient Narrative Narrative: Patient is a 51-year-old female with history of CKD stage V., not currently on hemodialysis, chronic anemia with transfusion of 1 unit of packed red blood cells yesterday, presenting for back pain. Patient had a mechanical fall 2 days ago. She states she was walking to take out the trash when she lost her balance and fell. Patient states she fell onto a ladder and the ladder folded in on itself. She landed on her buttocks. She did not hit her head. Patient is on any blood thinners. She states she maybe had some very mild back pain yesterday but it was not too bad. Today when she woke up she had worsening back pain especially in her right lower back. Throughout the day it worsened and it got to the point that she could not even move. She did not take anything for pain prior to arrival. She drove her self here. Denies any numbness or tingling in her legs. Denies any radiation of pain down her legs. Denies any saddle anesthesia. Denies any bowel or bladder incontinence. No other complaints at this time. [facility] Medical History Anemia Anxiety Arthritis Back pain Cancer Diabetes Former smoker Gastric reflux High cholesterol History of basal cell cancer History of echocardiogram History of irregular heartbeat History of pain when walking History of renal disease Hypertension Injury of head and neck Post-menopausal Wears dentures Wears glasses Home Medications gabapentin 300 mg capsule 900 mg PO QHS 05/27/16 [History Last Taken 04/01/22] amlodipine 10 mg tablet 10 mg PO DAILY bp 04/16/19 [History Last Taken 04/06/19] bupropion HCl 300 mg 24 hr tablet, extended release 300 mg PO QHS depression 04/16/19 [History Last Taken 04/01/22] cholecalciferol (vitamin D3) 25 mcg (1,000 unit) tablet 1,000 unit PO DAILY supplement 04/16/19 [History Last Taken 04/01/22] lysine 1,000 mg tablet 1,000 mg PO DAILY supplement 04/16/19 [History Last Taken 04/01/22] multivitamin 1 tab PO DAILY supplement 04/16/19 [History Last Taken 04/01/22] sodium bicarbonate 650 mg tablet 1,300 mg PO 0800 acid 04/16/19 [History Last Taken 04/01/22] ferrous sulfate 325 mg (65 mg iron) tablet 325 mg PO BID supplement 04/22/19 [History Last Taken 04/01/22] sodium bicarbonate 650 mg tablet 650 mg PO QHS acid 04/22/19 [History Last Taken 04/01/22] calcium acetate(phosphat bind) 667 mg capsule 1 cap PO TID 03/23/22 [History Last Taken 04/01/22] conj estrogen-medroxyprogesterone 0.625 mg-2.5 mg tablet (Prempro) 1 tab PO DAILY 03/23/22 [History Last Taken 04/01/22] famotidine 20 mg tablet 20 mg PO BID 03/23/22 [History Last Taken Unknown] fluoxetine 40 mg capsule 40 mg PO DAILY 03/23/22 [History Last Taken 04/01/22] magnesium 200 mg tablet 400 mg PO BID 03/23/22 [History Last Taken 04/01/22] metoprolol succinate 25 mg tablet,extended release 24 hr 50 tab PO QHS 03/23/22 [History Last Taken 04/01/22] atorvastatin 80 mg tablet 80 mg PO QHS 05/04/22 [History Last Taken Unknown] furosemide 40 mg tablet 40 mg PO DAILY #30 tabs 05/06/22 [Rx Last Taken Unknown] pramipexole 0.25 mg tablet 0.25 mg PO QHS #30 tabs 05/06/22 [Rx Last Taken Unknown] acetaminophen 650 mg tablet,extended release (Tylenol 8 Hour) 650 mg PO Q8H PRN pain #30 tabs 05/08/22 [Rx Last Taken Unknown] cyclobenzaprine 5 mg tablet 5 mg PO QHS PRN muscle spasm #10 tabs 05/08/22 [Rx Last Taken Unknown] lidocaine 4 % topical patch 1 patch topical DAILY PRN pain #10 ea 05/08/22 [Rx Last Taken Unknown] Allergy/AdvReac Type Severity Reaction Status Date / Time No Known Allergies Allergy Verified 05/08/22 13:39 Surgical History H/O local excision of skin lesion History of arteriovenostomy for renal dialysis (~03/2022) Hx of tooth extraction Social History household members: none Smoking Status: Former smoker alcohol intake: never ROS ROS ED Constitutional Constitutional ED: Denies chills or fever(s) Eyes Eyes: Denies change in vision ENT ENT ED: Denies sore throat Cardiovascular Cardiovascular: Denies chest pain Respiratory/Chest Respiratory/Chest: Denies dyspnea Gastrointestinal Gastrointestinal: Reports constipation; Denies abdominal pain, diarrhea, nausea or vomiting Genitourinary Genitourinary ED: Denies dysuria or hematuria Musculoskeletal Musculoskeletal: Reports back pain; Denies arthralgias, myalgias or neck pain Integumentary Denies rash Neurologic Neurologic: Denies headache(s), paresthesias or weakness Psychiatric Psychiatric: Denies anxiety Hematologic/Lymphatic Hematologic/Lymphatic: Denies easy bleeding or easy bruising EXAM Physical Exam Const Vital Signs: 05/08/22 13:37 05/08/22 18:31 Temperature 97.4 F L Temperature Source Temporal Pulse Rate 64 72 Respiratory Rate 16 17 Blood Pressure 131/109 H Blood Pressure Mean 116 Pulse Ox 99 98 Oxygen Delivery Method Room Air Positive well nourished and well developed General Appearance ED: well developed and NAD HEENT Reports moist mucous membranes Eyes PERRL and EOMs intact bilaterally Neck supple Resp normal respiratory effort and clear to auscultation bilaterally Cardio regular rate and regular rhythm Cardio Narrative: 2+ bilateral DP pulses GI normal to inspection, nondistended, normoactive bowel sounds and soft to palpation Back/Spine Back/Spine Narrative: No midline tenderness. No step-off sign. Patient has right lower lumbar paraspinal tenderness as well as tenderness over the sacroiliac joint. Thoracic Spine / Upper Back: Negative for paraspinal muscle tenderness Lumbar Spine / Lower Back: ROM limited and straight leg raise negative bilaterally Extremity normal to inspection General Extremety ED: Negative for edema or tenderness General Extremity: Negative for edema Neuro oriented x3 and no sensory deficits noted Sensorium / Orientation: alert Motor Exam: strength 5/5 throughout Psych mental status grossly normal Skin no wounds Lesions: No lesion noted MDM MDM MDM Narrative Medical decision making narrative: Patient is evaluated for worsening low back pain. She had a fall 2 days ago. She had mild pain yesterday but it worsened today. No physical exam or history findings concerning for cauda equina syndrome. No midline tenderness. X-ray obtained does not show any acute fracture but does show exaggerated lordosis and mild levoscoliosis likely due to spasm. Patient is given a Lidoderm patch and Tylenol with improvement of her symptoms while in the emergency room. She is able to ambulate. She did drive herself. She will be given a prescription for Flexeril at home for her muscle spasms. She is encouraged to continue taking Tylenol and Lidoderm patches as well. She is counseled on the risk of confusion and, sleepiness and increased risk of fall associated Flexeril. She verbalizes understanding of this. While in the ER patient notes that she has been having floaters in her eye for about a week. 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 Do not think this is related to her fall. She has a normal neurologic exam. Lab Data Labs: Laboratory Results - last 24 hr 05/08/22 16:27 POC Glucose 142 H Radiography X-Ray: LS SPine, Read by ED Physician and No Fracture Diagnostic Testing: Clinical Impression(s) from Imaging Studies Lumbar Spine X-Ray 05/08/22 16:20 IMPRESSION: Exaggerated lordosis and mild levoscoliosis most likely due to spasm. No acute fracture or subluxation. Electronically Signed: Ankit Krishnan MD at 16:48 EDT , Discharge Plan Triage Chief Complaint: Back ED Provider: Ayaka Romero Dx/Rx/DC Orders Clinical Impression: Fall on same level from tripping, Low back pain Instructions: ED Back Sprain/Strain, ED Mechanical Fall Prescriptions: New lidocaine 4 % adhesive patch,medicated 1 patch topical DAILY PRN (Reason: pain) Qty: 10 0RF acetaminophen [Tylenol 8 Hour] 650 mg tablet extended release 650 mg PO Q8H PRN (Reason: pain) Qty: 30 0RF cyclobenzaprine 5 mg tablet 5 mg PO QHS PRN (Reason: muscle spasm) Qty: 10 0RF No Action gabapentin 300 MG capsule 900 mg PO QHS multivitamin 1 EACH tablet 1 tab PO DAILY lysine 1,000 MG tablet 1,000 mg PO DAILY sodium bicarbonate 650 MG tablet 1,300 mg PO 0800 amlodipine 10 MG tablet 10 mg PO DAILY Label Comments: TAKE 1 TABLET BY MOUTH DAILY bupropion HCl 300 MG tablet extended release 24 hr 300 mg PO QHS cholecalciferol (vitamin D3) 1,000 UNIT tablet 1,000 unit PO DAILY sodium bicarbonate 650 MG tablet 650 mg PO QHS ferrous sulfate 325 MG tablet 325 mg PO BID Label Comments: TAKE 1 TABLET EVERY DAY WITH breakfast fluoxetine 40 mg capsule 40 mg PO DAILY Label Comments: TAKE 1 CAPSULE BY MOUTH EVERY MORNING famotidine 20 mg tablet 20 mg PO BID Label Comments: TAKE 1 TABLET BY MOUTH TWICE DAILY metoprolol succinate 25 mg tablet extended release 24 hr 50 tab PO QHS Label Comments: Take 1 tablet by mouth once daily. Prempro 0.625-2.5 mg tablet 1 tab PO DAILY Label Comments: Take 1 tablet by mouth once daily. magnesium 200 mg Tablet 400 mg PO BID calcium acetate(phosphat bind) 667 mg capsule 1 cap PO TID Label Comments: TAKE 1 CAPSULE BY MOUTH THREE TIMES DAILY WITH MEALS atorvastatin 80 mg Tablet 80 mg PO QHS furosemide 40 mg Tablet 40 mg PO DAILY Qty: 30 1RF pramipexole 0.25 mg Tablet 0.25 mg PO QHS Qty: 30 1RF Primary Care Provider: Colin Pedraza Referrals: Colin Pedraza [Primary Care Provider] - Disposition Disposition: Home, Self Care
--- NOTE | 2022-05-08 16:20 | RAD_ITS ---
STUDY: X-RAY - LUMBAR SPINE REASON FOR EXAM: Female, 51 years old. pain, fall TECHNIQUE: 4 view(s) of the lumbar spine were obtained. COMPARISON: 04/16/2019 FINDINGS: Exaggerated lumbar lordosis. There is mild levo scoliosis. Grade 1 spondylolisthesis at L4-5 Normal vertebral bodies and endplates. Narrowed L1-2 and L4-5 disc spaces with endplate spurring. The soft tissue structures are unremarkable. Findings are similar to that seen on prior study which was limited to AP projection RAD/L/S Spine Min 4 Views IMPRESSION: Exaggerated lordosis and mild levoscoliosis most likely due to spasm. No acute fracture or subluxation. Electronically Signed: Ankit Krishnan MD at 16:48 EDT ,
[2022-05-08] MEDS: Acetaminophen 325 MG Tablet 650 MG PO (16:28)
[2022-05-08] MEDS: Lidocaine 5% Patch 1 PATCH TOPICAL (16:28)
[2022-05-08 16:50] LABS: Bedside Glucose 142 mg/dL (74-106)
[2022-05-08 18:31] VITALS: PULSE 72; RESP 17; O2SAT 98
== END 2022-05-08 18:34 | disposition home or self-care (01) ==
PROVIDERS: Emergency Provider Emergency Medicine; PCP Student in an Organized Health Care Education/Training Program; Visit Provider Emergency Medicine
DX: M54.50 Low back pain, unspecified (principal); E11.22 Type 2 diabetes mellitus with diabetic chronic kidney disease; N18.5 Chronic kidney disease, stage 5; I12.0 Hypertensive chronic kidney disease with stage 5 chronic kidney disease or end stage renal disease; E78.00 Pure hypercholesterolemia, unspecified; Z87.891 Personal history of nicotine dependence; W01.0XXA Fall on same level from slipping, tripping and stumbling without subsequent striking against object, initial encounter
CPT/HCPCS: 72110; 82962; 99285

== ENCOUNTER → 2022-05-09 | Outpatient (CLI) | payer MEDICAID, SELFPAY ==
[2022-05-09 17:26] LABS: Hematocrit 26.1 % (37-47); Hemoglobin 8.8 g/dL (12.0-15.0); Mean Corp Hgb Conc 33.7 g/dL (32-36); Mean Corpuscular Hgb 27.8 pg (27.0-32.0); Mean Corpuscular Volume 82.3 fL (81-99); Mean Platelet Vol. 10.8 fl (6.2-12.0); Platelet Count 233 K/mm3 (150-450); RBC Distribution Width CV 15.1 % (11.6-14.6); RBC Distribution Width SD 44.9 fl (35.1-43.9); Red Blood Count 3.17 M/mm3 (4.2-5.4); White Blood Count 8.3 K/mm3 (4.4-11.0)
[2022-05-09 18:04] LABS: BUN 64 mg/dL (7-18); BUN/Creat Ratio 12.9 RATIO (10-20); Calcium,Total 9.2 mg/dL (8.5-10.1); Chloride 99 mmol/L (98-107); Creatinine, Serum 4.98 mg/dL (0.55-1.02); EST Glomerular Filtration Rate 10 mL/min (>60); Est Glom Filt Rate - Afr Amer 12 mL/min (>60); Ferritin 355 ng/mL (8-252); Glucose 112 mg/dL (74-106); Iron 19 ug/dL (50-170); Iron Binding Capacity,Total 280 ug/dL (250-450); PERCENT IRON SATURATION 6.8 % (15.0-55.0); Phosphorus 4.1 mg/dL (2.5-4.9); Sodium Level 130 mmol/L (136-145)
== END | disposition home or self-care (01) ==
LOC: LAB 16:00
PROVIDERS: PCP Student in an Organized Health Care Education/Training Program; Visit Provider Internal Medicine Nephrology
DX: N18.5 Chronic kidney disease, stage 5 (principal); D50.9 Iron deficiency anemia, unspecified
CPT/HCPCS: 36415; 80069; 82728; 83540; 83550; 85027

== ENCOUNTER 2022-05-21 14:30 | Outpatient (RCR) | payer MEDICAID, SELFPAY | END 2022-05-21 23:59 | disposition home or self-care (01) | LOC: NS 14:30 | PROVIDERS: PCP Student in an Organized Health Care Education/Training Program; Referring Provider Internal Medicine Nephrology; Visit Provider Internal Medicine Nephrology | DX: Z71.3 Dietary counseling and surveillance (principal) | CPT/HCPCS: 97803 ==

== ENCOUNTER → 2022-05-21 | Outpatient (CLI) | payer MEDICAID, SELFPAY ==
[2022-05-21 12:44] LABS: Hematocrit 33.9 % (37-47); Hemoglobin 10.6 g/dL (12.0-15.0); Mean Corp Hgb Conc 31.3 g/dL (32-36); Mean Corpuscular Hgb 26.3 pg (27.0-32.0); Mean Corpuscular Volume 84.1 fL (81-99); Mean Platelet Vol. 9.9 fl (6.2-12.0); Platelet Count 307 K/mm3 (150-450); RBC Distribution Width CV 14.4 % (11.6-14.6); RBC Distribution Width SD 43.8 fl (35.1-43.9); Red Blood Count 4.03 M/mm3 (4.2-5.4); White Blood Count 7.6 K/mm3 (4.4-11.0)
[2022-05-21 13:02] LABS: PTHIN 59.9 pg/mL (18.4-80.1)
[2022-05-21 13:10] LABS: Albumin, Serum 2.4 g/dL (3.2-5.0); BUN 50 mg/dL (7-18); BUN/Creat Ratio 9.2 RATIO (10-20); Calcium,Total 9.6 mg/dL (8.5-10.1); Chloride 101 mmol/L (98-107); Creatinine, Serum 5.46 mg/dL (0.55-1.02); EST Glomerular Filtration Rate 9 mL/min (>60); Est Glom Filt Rate - Afr Amer 11 mL/min (>60); Ferritin 202 ng/mL (8-252); Glucose 93 mg/dL (74-106); Iron 55 ug/dL (50-170); Iron Binding Capacity,Total 299 ug/dL (250-450); Phosphorus 4.3 mg/dL (2.5-4.9); Potassium 4.8 mmol/L (3.5-5.1); Sodium Level 135 mmol/L (136-145)
[2022-05-21 13:34] LABS: Hepatitis B Surface Antibody Non-Reactive; Hepatitis B Surface Antigen Non-Reactive (Nonreactive)
[2022-05-22 16:59] LABS: Hepatitis B Core Ab Total Negative (Negative)
== END | disposition home or self-care (01) ==
LOC: LAB 11:39
PROVIDERS: PCP Student in an Organized Health Care Education/Training Program; Visit Provider Internal Medicine Nephrology
DX: N18.6 End stage renal disease (principal); D50.9 Iron deficiency anemia, unspecified
CPT/HCPCS: 36415; 80069; 82728; 83540; 83550; 83970; 85027; 86704; 86706; 87340

== ENCOUNTER 2022-08-01 06:48 | Inpatient (IN) | payer MEDICAID, SELFPAY ==
[2022-08-01] VITALS (22 sets, daily range): BP systolic 147–184; BP diastolic 65–83; PULSE 71–98; RESP 17–27; TEMP 36.3–37.6; O2SAT 84–98; BMI 26.5; BMI 26.3
--- NOTE | 2022-08-01 07:06 | EKG12_ITS ---
Test Reason : CP Blood Pressure : / mmHG Vent. Rate : 082 BPM Atrial Rate : 082 BPM P-R Int : 162 ms QRS Dur : 088 ms QT Int : 392 ms P-R-T Axes : 075 099 108 degrees QTc Int : 457 ms Normal sinus rhythm Rightward axis Borderline ECG Confirmed by GLORIA CORTES, CARMELO ([id number]), order editor ZULEMA REECE ([id number]) on 08/07/2022 9:24:37 A M Referred By: MILLI Confirmed By:MAXIMO CASTRO MD
--- NOTE | 2022-08-01 07:07 | EDS_ITS ---
HPI History of Present Illness Chief Complaint: Chest Pain Detail of Chief Complaint: Chest pain that started yesterday Informant: patient Narrative Narrative: Patient presents to the emergency department complaint of chest pain that starte d yesterday. Patient states he has been coughing for a couple of days. Cough minimally productive. She denies fever. Patient now describes pain in the center of her chest and right upper chest that radiates to her back. Pain worse with deep breath at times. She denies recent travel or surgery. Patient is a dialysis patient and was supposed to be a dialysis this morning. No history of cardiac disease and no history of PE or DVT. Patient states pain currently is mild. Pain has been continuous since yesterday. [facility] Medical History (Updated 08/01/22 @ 09:[address] Kasia Hodge, ) Anemia Anxiety Arthritis Back pain Cancer Chest pain Chronic kidney failure Chronic renal disease, stage 5, glomerular filtration rate (GFR) less than or equal to 15 mL/min/1.73 square meter Diabetes Dialysis patient Exertional shortness of breath Fistula Former smoker Gastric reflux High cholesterol History of basal cell cancer History of echocardiogram History of irregular heartbeat History of pain when walking History of renal disease Hypertension Injury of head and neck Iron deficiency anemia Pleural effusion Post-menopausal Type 2 diabetes mellitus with diabetic chronic kidney disease Wears dentures Wears glasses Home Medications gabapentin 300 mg capsule 900 mg PO QHS 05/27/16 [History Last Taken 04/01/22] amlodipine 10 mg tablet 10 mg PO DAILY bp 04/16/19 [History Last Taken 04/06/19] cholecalciferol (vitamin D3) 25 mcg (1,000 unit) tablet 1,000 unit PO DAILY supplement 04/16/19 [History Last Taken 04/01/22] lysine 1,000 mg tablet 1,000 mg PO DAILY supplement 04/16/19 [History Last Taken 04/01/22] multivitamin 1 tab PO DAILY supplement 04/16/19 [History Last Taken 04/01/22] sodium bicarbonate 650 mg tablet 1,300 mg PO 0800 acid 04/16/19 [History Last Taken 04/01/22] ferrous sulfate 325 mg (65 mg iron) tablet 325 mg PO BID supplement 04/22/19 [ History Last Taken 04/01/22] sodium bicarbonate 650 mg tablet 650 mg PO QHS acid 04/22/19 [History Last Taken 04/01/22] calcium acetate(phosphat bind) 667 mg capsule 1 cap PO TID 03/23/22 [History Las t Taken 04/01/22] conj estrogen-medroxyprogesterone 0.625 mg-2.5 mg tablet (Prempro) 1 tab PO DAILY 03/23/22 [History Last Taken 04/01/22] famotidine 20 mg tablet 20 mg PO BID 03/23/22 [History Last Taken Unknown] fluoxetine 40 mg capsule 40 mg PO DAILY 03/23/22 [History Last Taken 04/01/22] magnesium 200 mg tablet 400 mg PO BID 03/23/22 [History Last Taken 04/01/22] metoprolol succinate 25 mg tablet,extended release 24 hr 50 tab PO QHS 03/23/22 [History Last Taken 04/01/22] atorvastatin 80 mg tablet 80 mg PO QHS 05/04/22 [History Last Taken Unknown] furosemide 40 mg tablet 40 mg PO DAILY #30 tabs 05/06/22 [Rx Last Taken Unknown] pramipexole 0.25 mg tablet 0.25 mg PO QHS #30 tabs 05/06/22 [Rx Last Taken Unknown] cyclobenzaprine 5 mg tablet 2.5 - 5 mg PO QHS PRN muscle spasm 08/01/22 [History Last Taken Unknown] metformin 500 mg tablet,extended release 24 hr 1,000 mg PO BID 08/01/22 [History Last Taken Unknown] valsartan 160 mg tablet 160 mg PO DAILY 08/01/22 [History Last Taken Unknown] Allergy/AdvReac Type Severity Reaction Status Date / Time No Known Allergies Allergy Verified 08/01/22 06:49 Surgical History H/O local excision of skin lesion History of arteriovenostomy for renal dialysis (~03/2022) Hx of tooth extraction Social History household members: none Smoking Status: Former smoker alcohol intake: never ROS ROS ED Review of Systems ROS Unobtainable: other Constitutional Constitutional ED: Reports lethargy; Denies chills, fever(s), sweats or weight loss Eyes Eyes: Denies blurry vision, change in vision or diplopia ENT ENT ED: Denies rhinorrhea or sore throat Cardiovascular Cardiovascular: Reports chest pain; Denies orthopnea or racing heartbeat Respiratory/Chest Respiratory/Chest: Denies cough, dyspnea, dyspnea on exertion, orthopnea or sputum Gastrointestinal Gastrointestinal: Denies abdominal pain, diarrhea, nausea or vomiting Genitourinary Genitourinary ED: Denies dysuria, hematuria or urinary frequency Musculoskeletal Musculoskeletal: Denies arthralgias, back pain, myalgias or neck pain Integumentary Denies abscess, Abrasions or rash Neurologic Neurologic: Denies headache(s) or weakness Psychiatric Psychiatric: Denies anxiety, depression or suicidal thoughts Endocrine Endocrinology: Denies polydipsia, polyphagia or polyuria Hematologic/Lymphatic Hematologic/Lymphatic: Denies easy bleeding, easy bruising or lymphadenopathy Allergic/Immunologic Allergic/Immunologic ED: Denies mouth swelling, tongue swelling or urticaria EXAM Physical Exam Const Vital Signs: 08/01/22 06:51 08/01/22 06:54 08/01/22 06:55 Temperature 97.6 F L 97.6 F L Temperature Source Temporal Temporal Pulse Rate 88 84 Respiratory Rate 23 H 20 H Respiratory Effort Normal Respiratory Pattern Normal Blood Pressure 183/83 H 183/83 H Blood Pressure Mean 116 116 Pulse Ox 92 97 Oxygen Delivery Method Room Air Room Air Oxygen Flow Rate (L/min) 08/01/22 07:22 08/01/22 07:40 08/01/22 07:44 Temperature Temperature Source Pulse Rate Respiratory Rate 20 H Respiratory Effort Respiratory Pattern Blood Pressure Blood Pressure Mean Pulse Ox 96 84 92 Oxygen Delivery Method Room Air Room Air Nasal Cannula Oxygen Flow Rate (L/min) 2 08/01/22 07:54 08/01/22 08:23 08/01/22 08:23 Temperature 97.9 F Temperature Source Temporal Pulse Rate 79 80 Respiratory Rate 20 H 27 H Respiratory Effort Respiratory Pattern Blood Pressure 178/77 H Blood Pressure Mean 110 Pulse Ox 90 84 Oxygen Delivery Method Nasal Cannula Nasal Cannula Oxygen Flow Rate (L/min) 3 6 08/01/22 08:23 08/01/22 08:38 08/01/22 08:42 Temperature Temperature Source Pulse Rate Respiratory Rate 27 H 20 H Respiratory Effort Short of Breath Labored Respiratory Pattern Blood Pressure Blood Pressure Mean Pulse Ox 84 93 98 Oxygen Delivery Method Nasal Cannula Non-Rebreather Non-Rebreather Oxygen Flow Rate (L/min) 6 15 15 Positive well nourished and well developed General Appearance ED: well developed and NAD HEENT Reports TM's clear and moist mucous membranes normocephalic and atraumatic; Negative for trauma or tenderness Tympanic Membrane ED: Yes TM's clear Eyes PERRL and EOMs intact bilaterally General Eye ED: Negative for pale conjunctiva or scleral icterus Neck no lymphadenopathy, supple and no JVD General: Negative for tenderness Chest Wall inspection of chest normal; Negative for palpation of chest normal Chest Narrative: Tenderness palpation over the right upper chest that seems to reproduce her pain. No crepitus or subcu of edema noted. Chest: Negative for tenderness Resp normal respiratory effort and clear to auscultation bilaterally Effort and Inspection: Negative for respiratory distress or pain with movement Auscultation: Negative for rhonchi, wheezes or diminished lung sounds Cardio regular rate, regular rhythm, S1 normal heart sound, S2 normal heart sound and no murmurs Peripheral Pulses: pulses 2+ throughout GI normal to inspection, nondistended, normoactive bowel sounds, soft to palpation, non-tender, non-distended and no masses Back/Spine no CVA tenderness and no thoracic nor lumbar tenderness Extremity normal to inspection General Extremety ED: Negative for edema General Extremity: Negative for edema Neuro oriented x3, CN's II-XII intact bilaterally, no sensory deficits noted and gait normal Sensorium / Orientation: awake, alert, oriented to person, oriented to place and oriented to time Motor Exam: strength 5/5 throughout and strength abnormal Psych mental status grossly normal Skin no rashes or lesions noted and no wounds Heart Score History: Slightly/Non-Suspicious ECG: Normal Age: >45 - <65 years Risk Factors: 1 or 2 Risk Factors Troponin: </= Normal Limit Score: 2 MDM MDM MDM Narrative Medical decision making narrative: IV line established on arrival. Patient initially not hypoxic but became hypoxic and was placed on nasal cannula O2. Patient was noted to have mild CHF and left lower lobe infiltrate on chest x-ray. Blood cultures ordered. Patient started on Rocephin and Zithromax. Patient also noted to have hyperkalemia and was started on calcium gluconate as well as insulin and dextrose and was given a DuoNeb aerosol. Patient had an elevated D-dimer therefore CT of the chest was obtained which was negative for PE but did show mild CHF with small bilateral pleural effusions and lower lobe infiltrates. I discussed case with nephrology and we will discussed case with hospitalist this patient will require emergent dialysis. Lab Data Attestation: I reviewed the patient's lab results. Labs: Laboratory Results - last 24 hr 08/01/22 08/01/22 08/01/22 06:58 06:58 06:58 WBC 11.1 H RBC 3.88 L Hgb 9.9 L Hct 33.2 L MCV 85.6 MCH 25.5 L MCHC 29.8 L RDW Std Deviation 50.6 H RDW Coeff of Mandy 16.4 H Plt Count 265 MPV 11.0 Immature Gran % (Auto) 0.400 Neut % (Auto) 75.7 H Lymph % (Auto) 14.6 L [place] % (Auto) 5.0 Eos % (Auto) 3.7 Baso % (Auto) 0.6 Absolute Neuts (auto) 8.4 H Absolute Lymphs (auto) 1.61 Nucleated RBC % 0 D-Dimer Quant (PE/DVT) 2.75 H* Sodium 133 L Potassium 6.4 H* Chloride 101 Carbon Dioxide 26.0 Anion Gap 6 BUN 48 H Creatinine 5.08 H Estim Creat Clear Calc 10.11 Est GFR (MDRD) Af Amer 12 L Est GFR (MDRD) Non-Af 10 L BUN/Creatinine Ratio 9.4 L Glucose 140 H Calcium 10.0 Troponin I High Sens 33 Radiography Chest X-Ray - ED: 1 View Diagnostic Testing: Clinical Impression(s) from Imaging Studies Chest X-Ray 08/01/22 07:35 IMPRESSION: Left lower lobe infiltrate superimposed on a mild degree of CHF. Electronically Signed: Maycol Duque MD at 8:37 EST , Chest CTA 08/01/22 08:01 IMPRESSION: No evidence of pulmonary embolism. Small bilateral pleural effusions with bibasilar infiltrates worse at the left lung base with areas of groundglass appearance in the upper lobes worse in the left upper lobe. This is suggestive of pneumonitis. Pericardial effusion. Coronary artery calcification. Mild degree of CHF. Electronically Signed: Maycol Duque MD at 9:11 EST , 1 view chest x-ray obtained interpreted by myself as mild pulmonary congestion with increased markings left and right lower lobes. Radiology essentially in agreement. EKG Initial EKG: Attestation: I personally reviewed and interpreted this EKG as follows: Comments: Sinus rhythm with a rate of 82 bpm with no acute ST segment changes Critical Care Time Critical care time (excluding procedures): 30-74 minutes, Including time spent:, Discussing w/Patient &/or Family/Wastewater Process Engineer, Discussing w/Consultants, Arranging Admission or Transfer, Performing Direct Patient Care at Bedside and - (30 min) Discharge Plan Triage Chief Complaint: Chest Pain ED Provider: Kasia Hodge Dx/Rx/DC Orders Clinical Impression: Acute dyspnea, Hypoxia, Acute hyperkalemia, CHF (congestive heart failure), Pneumonia Prescriptions: No Action gabapentin 300 MG capsule 900 mg PO QHS multivitamin 1 EACH tablet 1 tab PO DAILY lysine 1,000 MG tablet 1,000 mg PO DAILY sodium bicarbonate 650 MG tablet 1,300 mg PO 0800 amlodipine 10 MG tablet 10 mg PO DAILY Label Comments: TAKE 1 TABLET BY MOUTH DAILY cholecalciferol (vitamin D3) 1,000 UNIT tablet 1,000 unit PO DAILY sodium bicarbonate 650 MG tablet 650 mg PO QHS ferrous sulfate 325 MG tablet 325 mg PO BID Label Comments: TAKE 1 TABLET EVERY DAY WITH breakfast fluoxetine 40 mg capsule 40 mg PO DAILY Label Comments: TAKE 1 CAPSULE BY MOUTH EVERY MORNING famotidine 20 mg tablet 20 mg PO BID Label Comments: TAKE 1 TABLET BY MOUTH TWICE DAILY metoprolol succinate 25 mg tablet extended release 24 hr 50 tab PO QHS Label Comments: Take 1 tablet by mouth once daily. Prempro 0.625-2.5 mg tablet 1 tab PO DAILY Label Comments: Take 1 tablet by mouth once daily. magnesium 200 mg Tablet 400 mg PO BID calcium acetate(phosphat bind) 667 mg capsule 1 cap PO TID Label Comments: TAKE 1 CAPSULE BY MOUTH THREE TIMES DAILY WITH MEALS atorvastatin 80 mg Tablet 80 mg PO QHS furosemide 40 mg Tablet 40 mg PO DAILY Qty: 30 1RF pramipexole 0.25 mg Tablet 0.25 mg PO QHS Qty: 30 1RF metformin 500 mg tablet extended release 24 hr 1,000 mg PO BID valsartan 160 mg tablet 160 mg PO DAILY cyclobenzaprine 5 mg tablet 2.5 - 5 mg PO QHS PRN (Reason: muscle spasm) Primary Care Provider: Colin Pedraza Referrals: Colin Pedraza [Primary Care Provider] - Disposition Disposition: Acute Care Hospital [facility]
[2022-08-01] MEDS: 0.9% Normal Saline 1,000 ML 150 ML IV (07:20)
[2022-08-01] MEDS: Aspirin 81 MG TAB.CHEW 324 MG PO (07:21)
[2022-08-01 07:31] LABS: Absolute Lymphocyte Count 1.61 X10^3/uL (0.83-4.51); Absolute Neutrophil Count 8.4 X10^3/uL (2.0-7.7); Basophil# 0.07 X10^3/uL; Basophil% 0.6 % (0-1); Eosinophil# 0.41 X10^3/uL; Eosinophils% 3.7 % (0-5); Hematocrit 33.2 % (37-47); Hemoglobin 9.9 g/dL (12.0-15.0); Lymphocyte # 1.61 X10^3/ul (0.83-4.51); Lymphocyte % 14.6 % (19-41); Mean Corp Hgb Conc 29.8 g/dL (32-36); Mean Corpuscular Hgb 25.5 pg (27.0-32.0); Mean Corpuscular Volume 85.6 fL (81-99); Monocyte# 0.55 X10^3/uL; NRBC Flagged by Analyzer 0 % (0-5); Neutrophil # 8.37 X10^3/uL (2.7-7.7); Neutrophil % 75.7 % (47-70); Platelet Count 265 K/mm3 (150-450); RBC Distribution Width CV 16.4 % (11.6-14.6); RBC Distribution Width SD 50.6 fl (35.1-43.9); Red Blood Count 3.88 M/mm3 (4.2-5.4); White Blood Count 11.1 K/mm3 (4.4-11.0)
--- NOTE | 2022-08-01 07:35 | RAD_ITS ---
STUDY: X-RAY CHEST REASON FOR EXAM: Female, 51 years old. Chest pain TECHNIQUE: Single AP portable view of the chest. COMPARISON: Comparison is made with prior study dated 05/04/2022. FINDINGS: EKG electrodes are seen. There is evidence of a left lower lobe infiltrate superimposed on mild degree of CHF. There is no demonstrated pleural abnormality. There is mild cardiac enlargement. Normal mediastinum and angelia. Normal visualized pulmonary arteries. Normal visualized aortic arch and descending thoracic aorta. Normal visualized thoracic spine. Normal visualized ribs, clavicles, and shoulders. There is no demonstrated abnormality of the visualized soft tissue structures of the upper abdomen. RAD/Chest 1 View (Portable) IMPRESSION: Left lower lobe infiltrate superimposed on a mild degree of CHF. Electronically Signed: Maycol Duque MD at 8:37 EST ,
[2022-08-01 07:57] LABS: Anion Gap 6 (5-15); BUN 48 mg/dL (7-18); BUN/Creat Ratio 9.4 RATIO (10-20); Chloride 101 mmol/L (98-107); Creatinine, Serum 5.08 mg/dL (0.55-1.02); EST Glomerular Filtration Rate 10 mL/min (>60); Est Glom Filt Rate - Afr Amer 12 mL/min (>60); Estimated Creatinine Clearance 10.11 ml/min; Glucose 140 mg/dL (74-106); Potassium 6.4 mmol/L (3.5-5.1); Sodium Level 133 mmol/L (136-145); Troponin-I HS (w/2H Reflex) 33 pg/mL (3.0-54.0)
[2022-08-01 08:01] LABS: D-Dimer Quantitative (DVT/PE) 2.75 FEU/ug/m (0.27-0.49)
--- NOTE | 2022-08-01 08:01 | CT_ITS ---
STUDY: CTA CHEST REASON FOR EXAM: Female, 51 years old. Chest pain, elevated d-dimer. History of chronic renal disease and dialysis. Cough. RADIATION DOSAGE (If Supplied By Facility): CTDIvol = ( 6.92 ) mGy, DLP = ( 245.27 ) mGycm TECHNIQUE: The examination was performed with the intravenous administration of IV 75mL Isovue-[id number]. Post-processing of the angiographic images was performed, with multiplanar reformation and 3D reconstruction. Individualized dose optimization techniques were used for this CT. COMPARISON: Comparison is made with prior chest radiograph done earlier in the day. FINDINGS: Diffuse subcutaneous edema. Normal enhancement of the main pulmonary artery and right and left pulmonary arteries. Normal enhancement of the bilateral peripheral pulmonary arteries. There is no demonstrated pulmonary embolism. Normal thoracic aorta and visualized great vessels. There is no demonstrated aortic dissection. Pericardial thickening. There are calcifications of the coronary arteries. Normal mediastinum. Normal hilar regions. Normal visualized trachea and bronchi. The lungs are well expanded. Small bilateral pleural effusions with bibasilar infiltrates worse in the left lower lobe. Small amount of fluid is also seen in the left major fissure as well as in the right major fissure. Scattered areas of the groundglass appearance in the upper lobes worse in the left upper lobe. Mild degree of CHF. Normal chest wall structures. Normal osseous structures. Normal visualized upper abdomen. CT/CTA Chest W/WO Contrast IMPRESSION: No evidence of pulmonary embolism. Small bilateral pleural effusions with bibasilar infiltrates worse at the left lung base with areas of groundglass appearance in the upper lobes worse in the left upper lobe. This is suggestive of pneumonitis. Pericardial effusion. Coronary artery calcification. Mild degree of CHF. Electronically Signed: Maycol Duque MD at 9:11 EST ,
[2022-08-01] MEDS: Albuterol *CONC* 2.5mg/0.5mL VIAL.NEB. 10 MG INHALATION (08:19)
[2022-08-01] MEDS: Dextrose 50%-Water 25 GM/50 ML DISP.SYRIN IV (08:31)
[2022-08-01] MEDS: Insulin Lispro 10 UNIT in Syringe 0 ML 6 UNIT IV (08:35)
[2022-08-01] MEDS: Calcium Gluconate IV 3 GM in Syringe 1 EACH IV (08:36)
--- NOTE | 2022-08-01 09:24 | NURSING ---
DR JEWELL FOR DR MORLEY
[2022-08-01 09:30] LABS: Reflex Troponin-HS? (from REC) Y
[2022-08-01] MEDS: Ceftriaxone 1 GM/50 ML BAG IV (09:30)
--- NOTE | 2022-08-01 09:32 | NURSING ---
PCU TERELETSKY RESP FAILURE, HYPOXIA, PNEUMONIA, CHF, HYPERKALEMIA
[2022-08-01 09:42] LABS: Lactic Acid 2.1 mmol/L (0.4-1.9)
[2022-08-01 11:54] LABS: Troponin-I HS 30 pg/mL (3.0-54.0)
[2022-08-01 12:15] LABS: Bedside Glucose 113 mg/dL (74-106)
[2022-08-01] MEDS: Heparin Injection (Vial) 5,000 UNIT/ML VIAL 5000 UNIT SC ×2 (12:30→22:30)
[2022-08-01] MEDS: Losartan Potassium 50 MG Tablet PO (12:30)
[2022-08-01] MEDS: Ferrous Sulfate 325 MG Tablet PO (12:30)
[2022-08-01] MEDS: Famotidine 20 MG Tablet PO (12:30)
[2022-08-01] MEDS: Furosemide 40 MG Tablet PO (12:30)
[2022-08-01] MEDS: amLODIPine 10 MG Tablet PO (12:30)
--- NOTE | 2022-08-01 12:30 | PCM.CONS.R ---
Assessment & Plan Assessment/Plan (1) ESRD (end stage renal disease) on dialysis: PLAN: HD MWF, dialysis today (2) Diabetes mellitus type 2 with complications: PLAN: retinopathy, nephropathy, neuropathy (3) Hyperkalemia: PLAN: correct with dialysis. discussed low K diet (4) Cough: (5) Dyspnea: PLAN: hypoxia CTA negative for PE (6) Pneumonia: PLAN: antibx per primary/ED (7) Hypertension: PLAN: stable (8) Iron deficiency anemia: PLAN: iv iron, raisa on dialysis HPI Consult Data Date of Consult: 08/01/22 HPI Narrative Reason for Consultation: ESRD HD MWF, hyperkalemia, hypoxemia HPI Narrative: SILVERIO HOGAN, is a 51 F with ESRD due to diabetes, on HD MWF at [facility] dialysis admitted via ED for hypoxia, cough, shortness of breath. She had CTA negative for PE. Started on iv antibiotics for possible pneumonia. Pt denied fever or chills. Potassium elevated at 6.4 in ED. History of dietary noncompliance consuming banana shakes. Dialysis arranged to be done in the hospital today. [facility] Medical History (Updated 08/01/22 @ 13:[address] Ivory Reynaga, DO) Anemia Anxiety Arthritis Back pain Cancer Chest pain Chronic kidney failure Chronic renal disease, stage 5, glomerular filtration rate (GFR) less than or equal to 15 mL/min/1.73 square meter Diabetes Dialysis patient Exertional shortness of breath Fistula Former smoker Gastric reflux High cholesterol History of basal cell cancer History of echocardiogram History of irregular heartbeat History of pain when walking History of renal disease Hypertension Injury of head and neck Iron deficiency anemia Pleural effusion Post-menopausal Type 2 diabetes mellitus with diabetic chronic kidney disease Wears dentures Wears glasses Home Medications gabapentin 300 mg capsule 300 mg PO TID PRN NERVE PAIN 05/27/16 [History Last Taken 07/30/22] amlodipine 10 mg tablet 10 mg PO DAILY BLOOD PRESSURE 04/16/19 [History Last Taken 07/31/22] cholecalciferol (vitamin D3) 25 mcg (1,000 unit) tablet 2,000 unit PO DAILY supplement 04/16/19 [History Last Taken 07/31/22] lysine 1,000 mg tablet 1,000 mg PO DAILY supplement 04/16/19 [History Last Taken 07/31/22] multivitamin 1 tab PO DAILY supplement 04/16/19 [History Last Taken 07/31/22] ferrous sulfate 325 mg (65 mg iron) tablet 325 mg PO DAILY supplement 04/22/19 [History Last Taken 07/31/22] calcium acetate(phosphat bind) 667 mg capsule 1 cap PO TID 03/23/22 [History Last Taken 07/31/22] famotidine 20 mg tablet 20 mg PO BID ACID REFLUX 03/23/22 [History Last Taken 07/31/22] atorvastatin 80 mg tablet 80 mg PO QHS CHOLESTEROL 05/04/22 [History Last Taken 07/31/22] cyclobenzaprine 10 mg tablet 5 - 10 mg PO TID PRN MUSCLE SPASMS 08/01/22 [History Last Taken 07/31/22] furosemide 40 mg tablet 40 mg PO DAILY FLUID 08/01/22 [History Last Taken Unknown] lidocaine-prilocaine 2.5 %-2.5 % topical cream 1 applic topical PRN PRN PORT ACCESS 08/01/22 [History Last Taken 07/30/22] magnesium oxide 400 mg (241.3 mg magnesium) tablet 400 mg PO QHS SUPPLEMENT 08/01/22 [History Last Taken 07/31/22] magnesium oxide 400 mg (241.3 mg magnesium) tablet 800 mg PO BREAKFAST SUPPLEMENT 08/01/22 [History Last Taken 07/31/22] meclizine 25 mg tablet 25 mg PO BID PRN Motion Sickness 08/01/22 [History Last Taken Unknown] metoprolol succinate 50 mg tablet,extended release 24 hr 50 mg PO QHS BLOOD PRESSURE 08/01/22 [History Last Taken 07/31/22] omega-3 fatty acids 1,000 mg capsule 2,000 mg PO BID SUPPLEMENT 08/01/22 [History Last Taken 07/31/22] pramipexole 0.25 mg tablet 0.25 mg PO QHS RESTLESS LEGS 08/01/22 [History Last Taken 07/31/22] vitamin B complex-vitamin C-folic acid 0.8 mg tablet (Keira-Nohemi) 1 tab PO DAILY SUPPLEMENT 08/01/22 [History Last Taken 07/31/22] Allergy/AdvReac Type Severity Reaction Status Date / Time No Known Allergies Allergy Verified 08/01/22 06:49 Surgical History H/O local excision of skin lesion History of arteriovenostomy for renal dialysis (~03/2022) Hx of tooth extraction Social History household members: none Smoking Status: Former smoker alcohol intake: never ROS Constitutional Constitutional: Denies chills, fever(s) or weakness Eyes Eyes: Denies loss of vision ENT HEENT: Denies nasal congestion Cardiovascular Cardiovascular: Denies chest pain Respiratory/Chest Respiratory/Chest: Reports dry cough and dyspnea on exertion Gastrointestinal Gastrointestinal: Denies abdominal pain, anorexia or diarrhea Genitourinary Genitourinary: Denies change in urinary stream Integumentary Integumentary: Denies rash Psychiatric Psychiatric: Reports anxiety; Denies confusion or depression Endocrine Endocrinology: Denies fatigue Physical Exam Const alert and oriented x3 General Appearance: well developed Resp Auscultation: crackles bilateral Cardio regular rate GI non-tender Palpation: soft Extremity no clubbing, cyanosis or edema General Extremity: AV fistula Skin General Skin Exam: Negative for ecchymosis Neuro CN's II-XII intact bilaterally Sensorium / Orientation: awake and alert Psych cooperative Lab / Micro Data Result Diagrams: 08/01/22 06:58 08/01/22 06:58 Labs: Laboratory Results - last 24 hr 08/01/22 06:58: WBC 11.1 H, RBC 3.88 L, Hgb 9.9 L, Hct 33.2 L, MCV 85.6, MCH 25.5 L, MCHC 29.8 L, RDW Std Deviation 50.6 H, RDW Coeff of Mandy 16.4 H, Plt Count 265, MPV 11.0, Immature Gran % (Auto) 0.400, Neut % (Auto) 75.7 H, Lymph % (Auto) 14.6 L, Wallace % (Auto) 5.0, Eos % (Auto) 3.7, Baso % (Auto) 0.6, Absolute Neuts (auto) 8.4 H, Absolute Lymphs (auto) 1.61, Nucleated RBC % 0 08/01/22 06:58: Sodium 133 L, Potassium 6.4 H*, Chloride 101, Carbon Dioxide 26.0, Anion Gap 6, BUN 48 H, Creatinine 5.08 H, Estim Creat Clear Calc 10.11, Est GFR (MDRD) Af Amer 12 L, Est GFR (MDRD) Non-Af 10 L, BUN/Creatinine Ratio 9.4 L, Glucose 140 H, Calcium 10.0, Troponin I High Sens 33 08/01/22 06:58: D-Dimer Quant (PE/DVT) 2.75 H* 08/01/22 09:06: Lactic Acid 2.1 H* 08/01/22 09:06: Troponin I High Sens 30 08/01/22 09:19: COVID-19 (DARRYL) Not Detected 08/01/22 11:52: POC Glucose 113 H Micro: Microbiology 08/01/22 07:24 Nasal Secretion SARS-CoV-2 & FLU Antigen (Rapid) - Final Radiology Impression Chest X-Ray 08/01/22 07:35 IMPRESSION: Left lower lobe infiltrate superimposed on a mild degree of CHF. Electronically Signed: Maycol Duque MD at 8:37 EST , Chest CTA 08/01/22 08:01 IMPRESSION: No evidence of pulmonary embolism. Small bilateral pleural effusions with bibasilar infiltrates worse at the left lung base with areas of groundglass appearance in the upper lobes worse in the left upper lobe. This is suggestive of pneumonitis. Pericardial effusion. Coronary artery calcification. Mild degree of CHF. Electronically Signed: Maycol Duque MD at 9:11 EST ,
[2022-08-01 13:14] LABS: Reflex Lactate? Y
[2022-08-01] MEDS: Cholecalciferol (VIT D3) 25 MCG TABLET (1,000 UNITS) 50 MCG PO (13:24)
[2022-08-01] MEDS: Fluoxetine HCl 40 MG CAPSULE PO (13:24)
[2022-08-01] MEDS: Calcium Acetate 667 MG Capsule PO ×2 (13:24→16:38)
[2022-08-01] MEDS: Lidocaine/Prilocaine HCl 5 GM Tube TOPICAL (13:30)
[2022-08-01 15:10] LABS: Lactic Acid 1.7 mmol/L (0.4-1.9)
--- NOTE | 2022-08-01 15:35 | DIALYSIS ---
Hemodialysis stopped after approximately 1hr due to pt moving right arm and infiltrating venous needle. Attempted to cannulate above infiltration without success. Dr Reynaga notified. Meredith pulled stasis achieved and dressings applied. Ice applied to infiltration. No fluid removed. Pt stable. Report to FRANCISCO Dixon
[2022-08-01] MEDS: 0.9% Saline Lock 10 ML Syringe IV (15:50)
[2022-08-01] MEDS: Sodium Polystyrene Sulfonate 15 GM/60 ML UDC 30 GM PO (15:50)
[2022-08-01] MEDS: Furosemide 40 MG/4 ML Vial IV (15:50)
--- NOTE | 2022-08-01 16:12 | ECHOD_ITS ---
Reason For Study: CHF Procedure This was a 2D Doppler, Color Flow transthoracic echocardiogram. Exam performed portable in patient room. Left Ventricle Normal LV size. The estimated ejection fraction is 55 %. Stage 2 diastolic dysfunction. No regional wall motion abnormalities noted. Right Ventricle Normal RV size. Normal systolic function. Atria The left atrium is mildly enlarged. Normal right atrium. No doppler evidence for ASD. Mitral Valve There is no mitral valve stenosis. Trivial mitral valve insufficiency. Tricuspid Valve There is no tricuspid stenosis. Trivial tricuspid valve insufficiency. Pulmonary artery systolic pressure is 65 mmHg. Aortic Valve Trisinus/trileaflet aortic valve. There is no aortic stenosis. No aortic valve insufficiency. Pulmonic Valve There is no pulmonic valvular stenosis. No pulmonic valve insufficiency. Great Vessels Normal aortic root. Pericardium/Pleural Moderate pericardial effusion. There are no echocardiographic indications of cardiac tamponade. Fibrinous strands. MMode/2D Measurements & Calculations RVDd: 4.0 cm LVOT diam: 2.0 cm Ao root diam: 3.1 cm LVOT area: 3.1 cm2 LAV(MOD-bp): 74.6 ml LVAd ap4: 42.4 cm2 LVAd ap2: 38.3 cm2 LAV(MOD-bp) Indexed: 46.1 ml/m2 LVLd ap4: 9.3 cm LVLd ap2: 8.6 cm LAV(MOD-sp2): 59.5 ml EDV(MOD-sp4): 153.9 ml EDV(MOD-sp2): 138.7 ml LAV(MOD-sp4): 77.7 ml EDV(sp4-el): 164.3 ml EDV(sp2-el): 144.8 ml LVAs ap4: 25.4 cm2 LVAs ap2: 24.0 cm2 LVLs ap4: 7.1 cm LVLs ap2: 7.6 cm ESV(MOD-sp4): 72.9 ml ESV(MOD-sp2): 63.7 ml ESV(sp4-el): 77.3 ml ESV(sp2-el): 64.7 ml EF(MOD-sp4): 52.6 % EF(MOD-sp2): 54.1 % EF(sp4-el): 53.0 % SV(MOD-sp4): 80.9 ml SV(MOD-sp2): 75.1 ml SV(sp4-el): 87.1 ml LA A4 area: 24.2 cm2 LA dimension(2D): 4.2 cm RA A4 area: 16.1 cm2 Time Measurements MV dec time: 0.16 sec Doppler Measurements & Calculations MV E max karan: 123.3 cm/sec Lat Peak E' Karan: 8.2 cm/sec Med Peak E' Karan: 5.7 cm/sec MV A max karan: 95.0 cm/sec E/E' lat: 15.0 E/E' med: 21.5 MV E/A: 1.3 MV V2 max: 131.4 cm/sec Ao V2 max: 208.9 cm/sec MV max P.9 mmHg MV dec slope: 808.1 cm/sec2 Ao max P.5 mmHg MV V2 mean: 82.2 cm/sec Ao V2 mean: 144.2 cm/sec MV mean P.0 mmHg Ao mean P.4 mmHg MV V2 VTI: 39.6 cm Ao V2 VTI: 45.4 cm MVA(VTI): 2.4 cm2 LULU(I,D): 2.1 cm2 LULU(V,D): 2.0 cm2 LV V1 max: 138.3 cm/sec MR max karan: 474.4 cm/sec SV(LVOT): 96.1 ml LV V1 max P.7 mmHg MR max P.0 mmHg LV V1 mean P.4 mmHg LV V1 mean: 99.0 cm/sec LV V1 VTI: 31.4 cm PA V2 max: 139.4 cm/sec TR max karan: 416.2 cm/sec PA V2 mean: 91.8 cm/sec TR max P.3 mmHg ECHO/Echo Complete Interpretation Summary The estimated ejection fraction is 55 %. Stage 2 diastolic dysfunction. The left atrium is mildly enlarged. Trivial mitral valve insufficiency. Moderate pericardial effusion. There are no echocardiographic indications of cardiac tamponade. Ordering Physician: Marc Mota Referring Physician: SHAMIR TREJO Performed By: Katharine Machado RCS
[2022-08-01] MEDS: Insulin Lispro 100 UNIT/ML INSULN.PEN SC ×2 (16:36→22:30)
[2022-08-01 18:25] LABS: Bedside Glucose 199 mg/dL (74-106)
--- NOTE | 2022-08-01 19:07 | PCM.HP.STD ---
HPI - General General Date of Admission: 08/01/22 Date of Service: 08/01/22 Chief Complaint: Shortness of breath HPI Narrative SILVERIO HOGAN, is a 51 F who presents to the emergency room at [facility] with a chief complaint of shortness of breath, patient tells this examiner that she has been more short of breath over the last 48 hours but it became much worse this morning. Patient is a chronic dialysis patient, she has a history of type 2 diabetes and essential hypertension. Patient had no complaints of any fever, chills, or productive cough. Patient has a history of end-stage renal disease and the patient's dialysis day was today. On examination in the emergency room, patient was initially on 2 L of oxygen, this had to be increased with then an hour to 15 L via nasal cannula. Chest x-ray was obtained which showed a left lower lobe infiltrate superimposed on a mild degree of CHF. CTA of the chest was obtained which showed no evidence of pulmonary embolism, small bilateral pleural effusions with bibasilar infiltrates worse at the left lung base with areas of groundglass appearance in the upper lobes worse in the left upper lobe. A mild degree of CHF was also noted to be present. Labs obtained showed an elevated white blood cell count at 11.1, hemoglobin was 9.9, potassium was 6.4, creatinine was 5.08, BUN was 48, and lactic acid was 2.1. Patient's COVID antigen test was negative, patient's COVID PCR was not detected. Patient has a past history of [id number] was positive for COVID PCR on 05/03/2020 Patient will be admitted to PCU for acute hypoxic respiratory failure secondary to suspected community-acquired pneumonia, hyperkalemia, and fluid overload, she will be emergently dialyzed today, IV antibiotics were given to the patient in the emergency room and these will be continued for now. I think the patient's lactic acid elevation is secondary to hypoxia. [facility] Medical History (Updated 08/01/22 @ 19:[address] Marc Mota, ) Anemia Anxiety Arthritis Back pain Cancer Chest pain Chronic kidney failure Chronic renal disease, stage 5, glomerular filtration rate (GFR) less than or equal to 15 mL/min/1.73 square meter Diabetes Dialysis patient Exertional shortness of breath Fistula Former smoker Gastric reflux High cholesterol History of basal cell cancer History of echocardiogram History of irregular heartbeat History of pain when walking History of renal disease Hypertension Injury of head and neck Iron deficiency anemia Pleural effusion Post-menopausal Type 2 diabetes mellitus with diabetic chronic kidney disease Wears dentures Wears glasses Home Medications gabapentin 300 mg capsule 300 mg PO TID PRN NERVE PAIN 05/27/16 [History Last Taken 07/30/22] amlodipine 10 mg tablet 10 mg PO DAILY BLOOD PRESSURE 04/16/19 [History Last Taken 07/31/22] cholecalciferol (vitamin D3) 25 mcg (1,000 unit) tablet 2,000 unit PO DAILY supplement 04/16/19 [History Last Taken 07/31/22] lysine 1,000 mg tablet 1,000 mg PO DAILY supplement 04/16/19 [History Last Taken 07/31/22] multivitamin 1 tab PO DAILY supplement 04/16/19 [History Last Taken 07/31/22] ferrous sulfate 325 mg (65 mg iron) tablet 325 mg PO DAILY supplement 04/22/19 [History Last Taken 07/31/22] calcium acetate(phosphat bind) 667 mg capsule 1 cap PO TID 03/23/22 [History Last Taken 07/31/22] famotidine 20 mg tablet 20 mg PO BID ACID REFLUX 03/23/22 [History Last Taken 07/31/22] atorvastatin 80 mg tablet 80 mg PO QHS CHOLESTEROL 05/04/22 [History Last Taken 07/31/22] cyclobenzaprine 10 mg tablet 5 - 10 mg PO TID PRN MUSCLE SPASMS 08/01/22 [History Last Taken 07/31/22] furosemide 40 mg tablet 40 mg PO DAILY FLUID 08/01/22 [History Last Taken Unknown] lidocaine-prilocaine 2.5 %-2.5 % topical cream 1 applic topical PRN PRN PORT ACCESS 08/01/22 [History Last Taken 07/30/22] magnesium oxide 400 mg (241.3 mg magnesium) tablet 400 mg PO QHS SUPPLEMENT 08/01/22 [History Last Taken 07/31/22] magnesium oxide 400 mg (241.3 mg magnesium) tablet 800 mg PO BREAKFAST SUPPLEMENT 08/01/22 [History Last Taken 07/31/22] meclizine 25 mg tablet 25 mg PO BID PRN Motion Sickness 08/01/22 [History Last Taken Unknown] metoprolol succinate 50 mg tablet,extended release 24 hr 50 mg PO QHS BLOOD PRESSURE 08/01/22 [History Last Taken 07/31/22] omega-3 fatty acids 1,000 mg capsule 2,000 mg PO BID SUPPLEMENT 08/01/22 [History Last Taken 07/31/22] pramipexole 0.25 mg tablet 0.25 mg PO QHS RESTLESS LEGS 08/01/22 [History Last Taken 07/31/22] vitamin B complex-vitamin C-folic acid 0.8 mg tablet (Keira-Nohemi) 1 tab PO DAILY SUPPLEMENT 08/01/22 [History Last Taken 07/31/22] Allergy/AdvReac Type Severity Reaction Status Date / Time No Known Allergies Allergy Verified 08/01/22 06:49 Surgical History H/O local excision of skin lesion History of arteriovenostomy for renal dialysis (~03/2022) Hx of tooth extraction Social History household members: none Smoking Status: Former smoker alcohol intake: never ROS Constitutional Constitutional: Reports fatigue and weakness; Denies anorexia, change in weight, chills, fever(s) or night sweats Eyes Eyes: Denies blurry vision, change in vision, discharge from eye(s) or eye pain ENT HEENT: Denies abnormal hearing or dysphagia Cardiovascular Cardiovascular: Reports dyspnea on exertion; Denies chest pain, claudication, edema or palpitations Respiratory/Chest Respiratory/Chest: Reports dyspnea, shortness of breath at rest and shortness of breath with exertion; Denies cough, hemoptysis or productive cough Gastrointestinal Gastrointestinal: Denies abdominal pain, coffee ground emesis, constipation, diarrhea, dyspepsia, hematemesis, hematochezia, melena, nausea or vomiting Genitourinary Genitourinary: Denies dysuria, hematuria, urinary frequency, urinary hesitancy, urinary incontinence or urinary urgency Musculoskeletal Musculoskeletal: Denies back pain, joint pain, joint stiffness, joint swelling, myalgias or neck pain Neurologic Neurologic: Denies abnormal gait, abnormal speech, dizziness, focal weakness, headache(s), loss of vision, numbness, other visual disturbances, paresthesias, syncope or tingling Psychiatric Psychiatric: Denies anxiety, cognitive impairment, depression, irritability, mood swings or suicidal ideation Endocrine Endocrinology: Denies change in body appearance, cold intolerance, excessive sweating, heat intolerance, polydipsia or polyuria Hematologic/Lymphatic Hematologic/Lymphatic: Denies none, anemia, easy bleeding, easy bruising or lymphadenopathy Allergic/Immunologic Allergic/Immunologic: Denies rhinitis, urticaria, eczemia or asthma Vital Signs Vital Signs Vital Signs: 08/01/22 06:51 08/01/22 06:54 08/01/22 06:55 Temperature 97.6 F L 97.6 F L Temperature Source Temporal Temporal Pulse Rate 88 84 Respiratory Rate 23 H 20 H Respiratory Effort Normal Respiratory Depth Respiratory Pattern Normal Blood Pressure 183/83 H 183/83 H Blood Pressure Mean 116 116 Blood Pressure Source Blood Pressure Position Blood Pressure Location Pulse Ox 92 97 Oxygen Delivery Method Room Air Room Air Oxygen Flow Rate (L/min) Fraction of Inspired Oxygen (FIO2) 08/01/22 07:22 08/01/22 07:40 08/01/22 07:44 Temperature Temperature Source Pulse Rate Respiratory Rate 20 H Respiratory Effort Respiratory Depth Respiratory Pattern Blood Pressure Blood Pressure Mean Blood Pressure Source Blood Pressure Position Blood Pressure Location Pulse Ox 96 84 92 Oxygen Delivery Method Room Air Room Air Nasal Cannula Oxygen Flow Rate (L/min) 2 Fraction of Inspired Oxygen (FIO2) 08/01/22 07:54 08/01/22 08:23 08/01/22 08:23 Temperature 97.9 F Temperature Source Temporal Pulse Rate 79 80 Respiratory Rate 20 H 27 H Respiratory Effort Respiratory Depth Respiratory Pattern Blood Pressure 178/77 H Blood Pressure Mean 110 Blood Pressure Source Blood Pressure Position Blood Pressure Location Pulse Ox 90 84 Oxygen Delivery Method Nasal Cannula Nasal Cannula Oxygen Flow Rate (L/min) 3 6 Fraction of Inspired Oxygen (FIO2) 08/01/22 08:23 08/01/22 08:38 08/01/22 08:42 Temperature Temperature Source Pulse Rate Respiratory Rate 27 H 20 H Respiratory Effort Short of Breath Labored Respiratory Depth Respiratory Pattern Blood Pressure Blood Pressure Mean Blood Pressure Source Blood Pressure Position Blood Pressure Location Pulse Ox 84 93 98 Oxygen Delivery Method Nasal Cannula Non-Rebreather Non-Rebreather Oxygen Flow Rate (L/min) 6 15 15 Fraction of Inspired Oxygen (FIO2) 08/01/22 09:27 08/01/22 08:54 08/01/22 09:54 Temperature 97.4 F L 98 F Temperature Source Temporal Temporal Pulse Rate 71 84 Respiratory Rate 20 H 20 H Respiratory Effort Respiratory Depth Respiratory Pattern Blood Pressure 184/81 H 158/73 H Blood Pressure Mean 115 101 Blood Pressure Source Blood Pressure Position Blood Pressure Location Pulse Ox 95 95 94 Oxygen Delivery Method Venturi Mask Venturi Mask Venturi Mask Oxygen Flow Rate (L/min) 12 Fraction of Inspired Oxygen (FIO2) 50 50 50 08/01/22 11:20 08/01/22 12:10 08/01/22 11:20 Temperature 98.3 F 98.3 F Temperature Source Oral Oral Pulse Rate 81 81 Respiratory Rate 18 18 Respiratory Effort Respiratory Depth Respiratory Pattern Blood Pressure 147/74 H 147/74 H Blood Pressure Mean 98 98 Blood Pressure Source Monitor Blood Pressure Position Semi-Fowlers Blood Pressure Location Left Arm Pulse Ox 92 94 94 Oxygen Delivery Method Venturi Mask High Flow High Flow Oxygen Flow Rate (L/min) 10 10 Fraction of Inspired Oxygen (FIO2) 50 50 08/01/22 12:45 08/01/22 17:00 08/01/22 11:58 Temperature 98.1 F Temperature Source Oral Pulse Rate 79 79 Respiratory Rate 18 Respiratory Effort Short of Breath Respiratory Depth Normal Respiratory Pattern Normal Blood Pressure 158/65 H Blood Pressure Mean 96 Blood Pressure Source Monitor Blood Pressure Position Semi-Fowlers Blood Pressure Location Left Arm Pulse Ox 95 Oxygen Delivery Method High Flow High Flow Oxygen Flow Rate (L/min) 10 10 Fraction of Inspired Oxygen (FIO2) 08/01/22 15:10 Temperature Temperature Source Pulse Rate 80 Respiratory Rate Respiratory Effort Respiratory Depth Respiratory Pattern Blood Pressure Blood Pressure Mean Blood Pressure Source Blood Pressure Position Blood Pressure Location Pulse Ox Oxygen Delivery Method Oxygen Flow Rate (L/min) Fraction of Inspired Oxygen (FIO2) Weight Weight: 63.276 kg Body Mass Index (BMI) 26.3 Physical Exam Const alert and oriented x3 Constitutional Narrative: At the time my examination, patient was showing respiratory distress with accessory muscle usage and chest retractions. She had conversational dyspnea. Patient appeared older than her stated age. General Appearance: cooperative, well kempt and well developed Orientation / Consciousness: awake, oriented to person, oriented to place and oriented to time HEENT normocephalic, head/scalp atraumatic, hearing grossly normal bilaterally and moist oral mucous membranes Eyes PERRL, EOMs intact bilaterally and conjunctivae normal Neck supple, no JVD and thyroid normal General: trachea midline Resp Resp Narrative: Patient had inspiratory rales bilaterally, patient appeared dyspneic on conversation, there was evidence of retractions bilaterally, patient had accessory muscle usage Auscultation: rales; Negative for rhonchi or wheezes Cardio regular rate, regular rhythm, S1 normal heart sound, S2 normal heart sound, no murmurs, no rub and no gallops GI normal to inspection, nondistended, normoactive bowel sounds, soft to palpation, non-tender and non-distended Extremity no clubbing, cyanosis or edema Skin no rashes or lesions noted General Skin Exam: no breakdown Neuro oriented x3, CN's II-XII intact bilaterally, no focal motor deficits and no sensory deficits noted Sensorium / Orientation: awake and alert Speech: speech normal Psych affect normal Results Lab / Micro Data Result Diagrams: 08/01/22 06:58 08/01/22 06:58 Labs: Laboratory Results - last 24 hr 08/01/22 06:58: WBC 11.1 H, RBC 3.88 L, Hgb 9.9 L, Hct 33.2 L, MCV 85.6, MCH 25.5 L, MCHC 29.8 L, RDW Std Deviation 50.6 H, RDW Coeff of Mandy 16.4 H, Plt Count 265, MPV 11.0, Immature Gran % (Auto) 0.400, Neut % (Auto) 75.7 H, Lymph % (Auto) 14.6 L, [place] % (Auto) 5.0, Eos % (Auto) 3.7, Baso % (Auto) 0.6, Absolute Neuts (auto) 8.4 H, Absolute Lymphs (auto) 1.61, Nucleated RBC % 0 08/01/22 06:58: Sodium 133 L, Potassium 6.4 H*, Chloride 101, Carbon Dioxide 26.0, Anion Gap 6, BUN 48 H, Creatinine 5.08 H, Estim Creat Clear Calc 10.11, Est GFR (MDRD) Af Amer 12 L, Est GFR (MDRD) Non-Af 10 L, BUN/Creatinine Ratio 9.4 L, Glucose 140 H, Calcium 10.0, Troponin I High Sens 33 08/01/22 06:58: D-Dimer Quant (PE/DVT) 2.75 H* 08/01/22 09:06: Lactic Acid 2.1 H* 08/01/22 09:06: Troponin I High Sens 30 08/01/22 09:19: COVID-19 (DARRYL) Not Detected 08/01/22 11:52: POC Glucose 113 H 08/01/22 13:40: Lactic Acid 1.7 08/01/22 16:25: POC Glucose 199 H Micro: Microbiology 08/01/22 07:24 Nasal Secretion SARS-CoV-2 & FLU Antigen (Rapid) - Final Radiology Impression Chest X-Ray 08/01/22 07:35 IMPRESSION: Left lower lobe infiltrate superimposed on a mild degree of CHF. Electronically Signed: Maycol Duque MD at 8:37 EST , Chest CTA 08/01/22 08:01 IMPRESSION: No evidence of pulmonary embolism. Small bilateral pleural effusions with bibasilar infiltrates worse at the left lung base with areas of groundglass appearance in the upper lobes worse in the left upper lobe. This is suggestive of pneumonitis. Pericardial effusion. Coronary artery calcification. Mild degree of CHF. Electronically Signed: Maycol Duque MD at 9:11 EST , Assessment & Plan Assessment/Plan (1) Respiratory failure with hypoxia: PLAN: Plan 1. Acute hypoxic respiratory failure secondary to fluid overload from end-stage renal disease-patient will be admitted to PCU, she will undergo emergent dialysis for fluid removal. Pulse ox will be monitored. Nephrology will participate in her care. #2 community-acquired pneumonia with bibasilar infiltrates worse in the left lung base-patient was placed on IV Rocephin and Zithromax, I will add aerosol treatments to the patient's regimen #3 end-stage renal disease on dialysis-nephrology will participate in the patient's care, she will receive dialysis today #4 type 2 diabetes-patient's blood sugars will be monitored, sliding scale insulin will be used #5 essential hypertension-patient will remain on her present medications #6 hyperkalemia-patient will undergo dialysis today, labs will be monitored #7 hyperlipidemia-patient will remain on atorvastatin Charges/Coding Visit Charges Inpatient E&M: 27067 Init Hosp L3
[2022-08-01] MEDS: Albuterol 2.5 MG/3 ML VIAL.NEB. INHALATION (21:34)
[2022-08-01] MEDS: Magnesium Chloride 64 MG Delay Rel.Tablet 128 MG PO (22:30)
[2022-08-01] MEDS: Pramipexole Di-HCl 0.25 MG Tablet PO (22:30)
[2022-08-01] MEDS: Atorvastatin Calcium 80 MG Tablet PO (22:30)
[2022-08-01] MEDS: Metoprolol(XL)Succ 50 MG Tablet PO (22:30)
[2022-08-01] MEDS: Gabapentin 300 MG Capsule 900 MG PO (22:37)
[2022-08-02] VITALS (19 sets, daily range): BP systolic 125–169; BP diastolic 48–92; PULSE 73–92; RESP 12–20; TEMP 36.4–37.7; O2SAT 92–96
[2022-08-02 01:41] LABS: Bedside Glucose 162 mg/dL (74-106)
[2022-08-02 05:48] LABS: Albumin, Serum 2.2 g/dL (3.2-5.0); BUN 54 mg/dL (7-18); BUN/Creat Ratio 9.8 RATIO (10-20); Calcium,Total 9.1 mg/dL (8.5-10.1); Chloride 100 mmol/L (98-107); Creatinine, Serum 5.49 mg/dL (0.55-1.02); EST Glomerular Filtration Rate 9 mL/min (>60); Est Glom Filt Rate - Afr Amer 11 mL/min (>60); Estimated Creatinine Clearance 9.35 ml/min; Glucose 118 mg/dL (74-106); Potassium 5.7 mmol/L (3.5-5.1); Sodium Level 132 mmol/L (136-145)
[2022-08-02] MEDS: Albuterol 2.5 MG/3 ML VIAL.NEB. INHALATION ×3 (07:06→19:28)
[2022-08-02 07:20] LABS: Bedside Glucose 121 mg/dL (74-106)
--- NOTE | 2022-08-02 08:39 | PCM.PN.REN ---
Subjective Subjective access infiltration 40 min into treatment yesterday due to moving arm. Dialysis today for shortened treatment yesterday. Denies CP, SOB. Cough improved. Resp panel pending. Objective Data Objective Data Vital Signs: Vital Signs Temp Pulse Resp BP Pulse Ox O2 Del Method O2 Flow Rate 98.8 F 73 16 152/92 H 96 High Flow 10 08/02/22 03:35 08/02/22 08:00 08/02/22 03:35 08/02/22 03:35 08/02/22 07:02 08/02/22 07:02 08/02/22 07:02 FiO2 50 08/01/22 11:20 Oxygen Flow Rate (L/min) 10 Oxygen Delivery Method High Flow Weight: 63.276 kg Body Mass Index (BMI) 26.3 Intake & Output: Intake and Output for Last 24 Hours 07/31/22 08/01/22 08/02/22 23:59 23:59 23:59 Intake Total 2175 / 2175 Output Total 0 / 0 Balance 2175 / 2175 0 / 0 Lab / Micro Data Result Diagrams: 08/01/22 06:58 08/02/22 04:57 Labs: Laboratory Results - last 24 hr 08/01/22 09:06: Lactic Acid 2.1 H* 08/01/22 09:06: Troponin I High Sens 30 08/01/22 09:19: COVID-19 (DARRYL) Not Detected 08/01/22 11:52: POC Glucose 113 H 08/01/22 13:40: Lactic Acid 1.7 08/01/22 16:25: POC Glucose 199 H 08/01/22 22:28: POC Glucose 162 H 08/02/22 04:57: Sodium 132 L, Potassium 5.7 H, Chloride 100, Carbon Dioxide 24.0, BUN 54 H, Creatinine 5.49 H, Estim Creat Clear Calc 9.35, Est GFR (MDRD) Af Amer 11 L, Est GFR (MDRD) Non-Af 9 L, BUN/Creatinine Ratio 9.8 L, Glucose 118 H, Calcium 9.1, Phosphorus 4.0, Albumin 2.2 L 08/02/22 07:01: POC Glucose 121 H Micro: Microbiology 08/01/22 07:24 Nasal Secretion SARS-CoV-2 & FLU Antigen (Rapid) - Final Radiography Diagnostic Testing: Radiology Impression Chest CTA 08/01/22 08:01 IMPRESSION: No evidence of pulmonary embolism. Small bilateral pleural effusions with bibasilar infiltrates worse at the left lung base with areas of groundglass appearance in the upper lobes worse in the left upper lobe. This is suggestive of pneumonitis. Pericardial effusion. Coronary artery calcification. Mild degree of CHF. 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 discussed low K diet (4) Cough: PLAN: resp panel (5) Dyspnea: PLAN: hypoxia CTA negative for PE (6) Pneumonia: PLAN: antibx per primary/ED (7) Hypertension: PLAN: stable (8) Iron deficiency anemia: PLAN: iv iron, raisa on dialysis
[2022-08-02] MEDS: Calcium Acetate 667 MG Capsule PO ×3 (09:00→17:39)
[2022-08-02] MEDS: Multivitamins,Therapeutic Tablet 1 TABLET PO (09:00)
[2022-08-02] MEDS: Ferrous Sulfate 325 MG Tablet PO ×2 (09:01→17:39)
--- NOTE | 2022-08-02 09:02 | NURSING ---
pt sats 98% on 10L so decreased to 8l and will monitor. no sob noted. pt cheerful and talking full sentences with no dyspnea obs. emla cream on counter to use prior to dialysis.
[2022-08-02] MEDS: 0.9% Saline Lock 10 ML Syringe IV (09:38)
[2022-08-02] MEDS: Insulin Lispro 100 UNIT/ML INSULN.PEN SC ×2 (12:03→20:17)
[2022-08-02 12:25] LABS: Bedside Glucose 187 mg/dL (74-106)
--- NOTE | 2022-08-02 12:32 | MDS.RN ---
emla cream applied to fistula per order. timed per acute dialysis registered nurse an hour prior to run.
--- NOTE | 2022-08-02 14:10 | CASEMGMT ---
[place] assessment: Face to Face with patient for initial transition planning/care coordination assessment. RN JACKY introduced self and role at [facility], pt voices understanding and consents to assessment. Pt is sitting up in bed in no distress on 5L nc.? Pt is A/Ox4 and answers all questions appropriately. Care providers, pharmacy,?and demographics verified. ? Presentation: pt c/o CP, SOB w/ back pain Admitting dx: Resp failure, hypoxia PCP: Milo Specialists: darnell Reynaga Pharmacy: [facility] Insurance: [facility] Prescription Benefit:?[facility] Living Will/HPOA: Pt does not have LW/HPOA. This RN JACKY answered questions regarding same and pt aware to ask if she would like further info. LNOK: Martin Gamez, father Living Arrangements: Pt lives alone in 2nd story duplex with 13 [address] in and states no concerns at home. Pt is independent with ADL's. Transportation: Pt drives self and states no transportation concerns. DME/HHC: Pt has no current DME and states no preference for DME if qualifies for home oxygen at discharge. Pt has OP HD MWF at [facility]. Pt states no hx of HHC or SNF. Pt states no concerns with going home at time of discharge. Pt is disabled. Pt does not smoke cigarettes any longer-states quit 5-6 years ago and does not drink ETOH. Pt voices no further concerns/needs. CM to follow for any further discharge planning/needs. Advised pt to ask for CM if any further questions/concerns/needs arise, voices understanding. Pt Goal: Home ? Plan: Home, pending home oxygen testing. [place]
--- NOTE | 2022-08-02 16:39 | DIALYSIS ---
Hemodialysis complete with 3.5 liters fluid removed. Stasis obtained after needles removed from right upper arm AV fistula. Fistula remains positive for thrill and bruit. Pt tolerated procedure without difficulty.
--- NOTE | 2022-08-02 17:32 | PCM.PN.HOSP ---
Subjective Subjective Patient was seen and examined today, she received dialysis again today, she is currently on nasal cannula oxygen and appears comfortable. Patient's echocardiogram showed a normal EF but evidence of moderate pulmonary hypertension. Objective Data Objective Data Vital Signs: Vital Signs Temp Pulse Resp BP Pulse Ox O2 Del Method O2 Flow Rate 98.1 F 76 18 136/64 H 95 Nasal Cannula 6 08/02/22 10:00 08/02/22 16:37 08/02/22 16:37 08/02/22 16:37 08/02/22 10:00 08/02/22 16:37 08/02/22 10:00 FiO2 50 08/01/22 11:20 Oxygen Flow Rate (L/min) 6 Oxygen Delivery Method Nasal Cannula Weight: 63.276 kg Body Mass Index (BMI) 26.3 Intake & Output: Intake and Output for Last 24 Hours 07/31/22 08/01/22 08/02/22 23:59 23:59 23:59 Intake Total 2175 / 2175 580 / 580 Output Total 3400 / 3400 Balance 2175 / 2175 -2820 / -2820 Lab / Micro Data Result Diagrams: 08/01/22 06:58 08/02/22 04:57 Labs: Laboratory Results - last 24 hr 08/01/22 16:25: POC Glucose 199 H 08/01/22 22:28: POC Glucose 162 H 08/02/22 04:57: Sodium 132 L, Potassium 5.7 H, Chloride 100, Carbon Dioxide 24.0, BUN 54 H, Creatinine 5.49 H, Estim Creat Clear Calc 9.35, Est GFR (MDRD) Af Amer 11 L, Est GFR (MDRD) Non-Af 9 L, BUN/Creatinine Ratio 9.8 L, Glucose 118 H, Calcium 9.1, Phosphorus 4.0, Albumin 2.2 L 08/02/22 07:01: POC Glucose 121 H 08/02/22 12:01: POC Glucose 187 H Micro: Microbiology 08/02/22 11:00 Interface Orders Streptococcus pneumoniae Antigen (M - Final 08/02/22 11:00 Interface Orders Legionella Antigen - Final 08/01/22 21:27 Mucosa - Nose Respiratory Panel (PCR) - Final 08/01/22 07:24 Nasal Secretion SARS-CoV-2 & FLU Antigen (Rapid) - Final Radiography Diagnostic Testing: Radiology Impression Echocardiogram 08/01/22 16:12 Interpretation Summary The estimated ejection fraction is 55 %. Stage 2 diastolic dysfunction. The left atrium is mildly enlarged. Trivial mitral valve insufficiency. Moderate pericardial effusion. There are no echocardiographic indications of cardiac tamponade. Ordering Physician: Marc Mota Referring Physician: SHAMIR TREJO Performed By: Katharine Machado RCS Physical Exam Const alert, oriented x3 and no apparent distress General Appearance: cooperative, well kempt and well developed Orientation / Consciousness: awake, oriented to person, oriented to place and oriented to time HEENT normocephalic and moist oral mucous membranes Eyes PERRL, EOMs intact bilaterally and conjunctivae normal Neck supple, no JVD, thyroid normal and no carotid bruits General: trachea midline Resp normal respiratory effort, no retractions, no use of accessory muscles and clear to auscultation bilaterally Auscultation: Negative for rales, rhonchi or wheezes Cardio regular rate, regular rhythm, S1 normal heart sound, S2 normal heart sound, no murmurs, no rub and no gallops GI normal to inspection, nondistended, normoactive bowel sounds, soft to palpation, non-tender and non-distended Extremity no clubbing, cyanosis or edema Skin no rashes or lesions noted General Skin Exam: no breakdown Neuro oriented x3, CN's II-XII intact bilaterally, no focal motor deficits and no sensory deficits noted Sensorium / Orientation: awake and alert Speech: speech normal Psych affect normal Assessment & Plan Assessment/Plan (1) Respiratory failure with hypoxia: PLAN: Plan 1. Acute hypoxic respiratory failure secondary to fluid overload from end-stage renal disease-continue present care, patient received dialysis today #2 community-acquired pneumonia with bibasilar infiltrates worse in the left lung base-patient was placed on IV Rocephin and Zithromax, I will add aerosol treatments to the patient's regimen #3 end-stage renal disease on dialysis-nephrology will participate in the patient's care, was receiving dialysis today #4 type 2 diabetes-patient's blood sugars will be monitored, sliding scale insulin will be used #5 essential hypertension-patient will remain on her present medications #6 hyperkalemia-patient will undergo dialysis today, labs will be monitored #7 hyperlipidemia-patient will remain on atorvastatin Charges/Coding Visit Charges Inpatient E&M: 83992 Subs Hosp L2
[2022-08-02] MEDS: Losartan Potassium 50 MG Tablet PO (17:38)
[2022-08-02] MEDS: Magnesium Chloride 64 MG Delay Rel.Tablet 128 MG PO ×2 (17:39→20:18)
[2022-08-02] MEDS: Cholecalciferol (VIT D3) 25 MCG TABLET (1,000 UNITS) 50 MCG PO (17:40)
[2022-08-02] MEDS: Ceftriaxone 1 GM/50 ML BAG IV (17:40)
[2022-08-02] MEDS: Fluoxetine HCl 40 MG CAPSULE PO (17:40)
[2022-08-02] MEDS: Famotidine 20 MG Tablet PO (17:41)
[2022-08-02] MEDS: amLODIPine 10 MG Tablet PO (17:41)
[2022-08-02] MEDS: Furosemide 40 MG Tablet PO (17:42)
[2022-08-02 17:46] LABS: Bedside Glucose 117 mg/dL (74-106)
[2022-08-02] MEDS: Heparin Injection (Vial) 5,000 UNIT/ML VIAL 5000 UNIT SC (20:16)
[2022-08-02] MEDS: Atorvastatin Calcium 80 MG Tablet PO (20:18)
[2022-08-02] MEDS: Pramipexole Di-HCl 0.25 MG Tablet PO (20:18)
[2022-08-02] MEDS: Metoprolol(XL)Succ 50 MG Tablet PO (20:18)
[2022-08-02] MEDS: Gabapentin 300 MG Capsule 900 MG PO (20:18)
[2022-08-02 20:46] LABS: Bedside Glucose 250 mg/dL (74-106)
[2022-08-03] VITALS (15 sets, daily range): BP systolic 125–170; BP diastolic 58–81; PULSE 66–91; RESP 16–20; TEMP 36.4–36.8; O2SAT 91–100
--- NOTE | 2022-08-03 05:35 | RAD_ITS ---
EXAM: XR CHEST, 1 VIEW CLINICAL INDICATION: pneumonia TECHNIQUE: Frontal view of the chest. This report was created using [employer] report generation technology. COMPARISON: XR Chest dated 08/01/2022 FINDINGS: LUNGS AND PLEURAL SPACES: Bilateral pulmonary opacities partially resolved within the left lung. New segmental atelectatic changes left lung base. No pneumothorax. No effusion. HEART: Stable cardiomegaly. MEDIASTINUM: No mediastinal or hilar mass. BONES/JOINTS: No acute abnormality. SOFT TISSUES: Normal. RAD/Chest 1 View (Portable) IMPRESSION: 1. Bilateral pneumonia with improvement in the left lung component. Left lower lobe segmental atelectasis. 2. Stable cardiomegaly. Electronically Signed: Robson Delaney MD at 9:34 EST ,
[2022-08-03 06:55] LABS: Bedside Glucose 109 mg/dL (74-106)
[2022-08-03] MEDS: Albuterol 2.5 MG/3 ML VIAL.NEB. INHALATION ×2 (07:34→19:23)
[2022-08-03] MEDS: Lidocaine/Prilocaine HCl 5 GM Tube TOPICAL (08:00)
--- NOTE | 2022-08-03 08:25 | RAD_ITS ---
EXAM: XR CHEST, 2 VIEWS CLINICAL INDICATION: respiratory failure TECHNIQUE: Frontal and lateral views of the chest. This report was created using [employer] report generation technology. COMPARISON: XR Chest dated 08/03/2022 FINDINGS: LUNGS AND PLEURAL SPACES: Bilateral central pulmonary densities consistent with pneumonia and/or pulmonary edema. Minimal left pleural effusion with consolidation or atelectasis of the left lower lobe again noted. No pneumothorax. HEART: Stable mild cardiomegaly. MEDIASTINUM: No mediastinal or hilar mass. BONES/JOINTS: No acute abnormality. SOFT TISSUES: Normal. RAD/Chest PA and Lateral IMPRESSION: No interval change. Electronically Signed: Robson Delaney MD at 8:43 EST ,
[2022-08-03] MEDS: Epoetin Alfa epbx 10,000 UNITS/ML 10000 UNIT IV (09:20)
[2022-08-03 09:22] LABS: Hepatitis B Surface Antigen Non-Reactive (Nonreactive)
--- NOTE | 2022-08-03 09:46 | DIALYSIS ---
Addendum entered by David Doyle 08/03/22 13:59: Hemodialysis complete. 3.5 hour run, 2k bath. Net fluid removed = 4000 ml. Patient tolerated HD tx well. Crit line shows plasma refill. Right forearm AVF: site still swollen from previous infiltration. Thrill and bruit preset. Needle site pressure held 10 min venous and 20 min arterial. Hemostasis achieved. Report given to primary RNKatherine. Original Note: Report from primary RNKatherine. Access: Right upper arm AVF. Site swollen from prior infiltration. Thrill and bruit present. Cannulated with 15 gauge needles. Hamilton taped securely to patient's arm. Patient encouraged to keep left arm still to avoid needle dislodgement.
--- NOTE | 2022-08-03 11:36 | NURSING ---
0800 and 1000 medications not given on time due to patient currently getting hemodialysis. Medications will be given when dialysis is complete.
[2022-08-03] MEDS: Insulin Lispro 100 UNIT/ML INSULN.PEN SC ×3 (12:36→20:33)
[2022-08-03 13:01] LABS: Bedside Glucose 184 mg/dL (74-106)
--- NOTE | 2022-08-03 13:33 | CON.PCM.CC_ITS ---
Assessment & Plan Assessment/Plan (1) Respiratory failure with hypoxia: (2) ESRD (end stage renal disease) on dialysis: PLAN: Plan RECOMMENDATIONS: 1. Await response to fluid removal with hemodialysis 2. Hold on antibiotics or steroids for now 3. Wean oxygen as tolerated 4. Walking oximetry prior to discharge 5. Consider decreasing dry weight goal 6. Outpatient complete pulmonary function test if not done recently IMPRESSIONS: 1. Acute hypoxic respiratory failure secondary to probable volume overload Patient reportedly has had a work-up at [facility] previously. This is not available for review. Findings on CT scan are suggestive of fluid overload with groundglass opacities and a pericardial effusion. Patient is not having any tamponade physiology noted on echocardiogram. Patient has had over 6 L of fluid removed in 48 hours. Clinical suspicion is this should help oxygenation. Patient will need a walking oximetry prior to discharge. Echocardiogram was suggestive of significant pulmonary hypertension, but this was obtained in the setting of volume overload. This should be repeated once patient is euvolemic. Patient does not appear to have any acute infectious etiology on exam, so holding on steroids and antibiotics would be appropriate. Patient should have outpatient pulmonary function test for quantification clarification of lung function if not done recently as patient is at risk for concomitant COPD given smoking history. 2. ESRD/type 2 diabetes mellitus/essential hypertension/hyperlipidemia/poor historian Complicates care, management, recovery and prognosis. Blood sugars appear to be well controlled at this time. Blood pressure has responded nicely to volume removal. Okay to reinitiate baseline antihypertensive medications. Would benefit from obtaining records from [facility] HPI Consult Data Date of Consult: 08/03/22 HPI Narrative Reason for Consultation: Hypoxia HPI Narrative: SILVERIO HOGAN is a 51 F, with past medical history listed below, who presents to [facility] on 08/01/2022 secondary to chest pain that started on the day previous. Patient reportedly had had a cough that was minimally productive. Patient did not report any fever. Patient states she had a pain in the middle of her chest that radiated to her back. This was worse with deep breathing. Patient had not reported any recent travel, trauma or surgery. Patient is a dialysis patient and was due for dialysis on the day of presentation. Patient does not have any coagulopathy history. Patient stated that it had been a constant sensation over the last 24 hours. In the ER, patient was afebrile, but tachypneic at 23 breaths/min. Patient was hypertensive at 183/83, but saturating well on room air. Over the course of the ER stay, patient became progressively hypoxic requiring a nonrebreather to maintain saturations. Laboratory data showed a white blood cell count of 11.1, hemoglobin 9.9 and platelets of 265. D-dimer was elevated at 2.75 and potassium was 6.4. BUN was noted to be 48 with a creatinine of 5.08 and a glucose of 140. Chest x-ray showed cephalization and a CTA of the chest showed no PE with small bilateral effusions with areas of groundglass opacity and a pericardial effusion. The case was discussed with nephrology and the patient was admitted for emergent hemodialysis. Since admission, patient has had dialysis twice. Patient states her breathing is much improved compared to previous. Patient is no longer reporting chest pain. Patient states that she does not use supplemental oxygen at baseline. Patient denies any dietary indiscretions. Patient is a relatively poor historian. Patient does state that she gets most of her care at the [facility]. Patient states she has had CT scans in the past that were normal. Patient states she has had a pulmonary function test, but is unaware of the results. Patient does not use any inhalers at baseline. Patient does report a 20+ pack year smoking history. Patient does not report a daily cough. No occupational or environmental exposures have been noted. Review of systems otherwise negative from a constitutional, HEENT, respiratory, cardiovascular, GI, genitourinary, musculoskeletal, skin, neurologic, psychiatric and hematologic system unless stated above. [facility] Medical History Anemia Anxiety Arthritis Back pain Cancer Chest pain Chronic kidney failure Chronic renal disease, stage 5, glomerular filtration rate (GFR) less than or equal to 15 mL/min/1.73 square meter Diabetes Dialysis patient Exertional shortness of breath Fistula Former smoker Gastric reflux High cholesterol History of basal cell cancer History of echocardiogram History of irregular heartbeat History of pain when walking History of renal disease Hypertension Injury of head and neck Iron deficiency anemia Pleural effusion Post-menopausal Type 2 diabetes mellitus with diabetic chronic kidney disease Wears dentures Wears glasses Home Medications gabapentin 300 mg capsule 300 mg PO TID PRN NERVE PAIN 05/27/16 [History Last Taken 07/30/22] amlodipine 10 mg tablet 10 mg PO DAILY BLOOD PRESSURE 04/16/19 [History Last Taken 07/31/22] cholecalciferol (vitamin D3) 25 mcg (1,000 unit) tablet 2,000 unit PO DAILY supp lement 04/16/19 [History Last Taken 07/31/22] lysine 1,000 mg tablet 1,000 mg PO DAILY supplement 04/16/19 [History Last Taken 07/31/22] multivitamin 1 tab PO DAILY supplement 04/16/19 [History Last Taken 07/31/22] ferrous sulfate 325 mg (65 mg iron) tablet 325 mg PO DAILY supplement 04/22/19 [History Last Taken 07/31/22] calcium acetate(phosphat bind) 667 mg capsule 1 cap PO TID 03/23/22 [History Last Taken 07/31/22] famotidine 20 mg tablet 20 mg PO BID ACID REFLUX 03/23/22 [History Last Taken 07/31/22] atorvastatin 80 mg tablet 80 mg PO QHS CHOLESTEROL 05/04/22 [History Last Taken 07/31/22] cyclobenzaprine 10 mg tablet 5 - 10 mg PO TID PRN MUSCLE SPASMS 08/01/22 [History Last Taken 07/31/22] furosemide 40 mg tablet 40 mg PO DAILY FLUID 08/01/22 [History Last Taken Unknown] lidocaine-prilocaine 2.5 %-2.5 % topical cream 1 applic topical PRN PRN PORT ACCESS 08/01/22 [History Last Taken 07/30/22] magnesium oxide 400 mg (241.3 mg magnesium) tablet 400 mg PO QHS SUPPLEMENT 08/01/22 [History Last Taken 07/31/22] magnesium oxide 400 mg (241.3 mg magnesium) tablet 800 mg PO BREAKFAST SUPPL EMENT 08/01/22 [History Last Taken 07/31/22] meclizine 25 mg tablet 25 mg PO BID PRN Motion Sickness 08/01/22 [History Last Taken Unknown] metoprolol succinate 50 mg tablet,extended release 24 hr 50 mg PO QHS BLOOD PRESSURE 08/01/22 [History Last Taken 07/31/22] omega-3 fatty acids 1,000 mg capsule 2,000 mg PO BID SUPPLEMENT 08/01/22 [History Last Taken 07/31/22] pramipexole 0.25 mg tablet 0.25 mg PO QHS RESTLESS LEGS 08/01/22 [History Last Taken 07/31/22] vitamin B complex-vitamin C-folic acid 0.8 mg tablet (Kiera-Nohemi) 1 tab PO DAILY SUPPLEMENT 08/01/22 [History Last Taken 07/31/22] Allergy/AdvReac Type Severity Reaction Status Date / Time No Known Allergies Allergy Verified 08/01/22 06:49 Surgical History H/O local excision of skin lesion History of arteriovenostomy for renal dialysis (~03/2022) Hx of tooth extraction Social History household members: none Smoking Status: Former smoker alcohol intake: never ROS ROS Narrative See HPI Physical Exam Const alert, oriented x3 and no apparent distress Constitutional Narrative: Appears older than stated age. Just finished hemodialysis with 4 L removed prior to my arrival General Appearance: cooperative, well kempt and well developed Orientation / Consciousness: awake, oriented to person, oriented to place and oriented to time HEENT normocephalic and moist oral mucous membranes Eyes PERRL, EOMs intact bilaterally and conjunctivae normal Neck supple, no JVD, thyroid normal and no carotid bruits General: trachea midline Resp normal respiratory effort, no retractions and no use of accessory muscles Auscultation: diminished lung sounds; Negative for rales, rhonchi or wheezes Cardio regular rate, regular rhythm, S1 normal heart sound, S2 normal heart sound, no rub and no gallops Heart Sounds: murmur systolic III/ loud mid left sternal border GI normal to inspection, nondistended, normoactive bowel sounds, soft to palpation, non-tender and non-distended Inspection: Negative for anasarca present Extremity no clubbing, cyanosis or edema Extremity Narrative: Right arm fistula Skin no rashes or lesions noted General Skin Exam: no breakdown Neuro oriented x3, CN's II-XII intact bilaterally, no focal motor deficits and no sensory deficits noted Sensorium / Orientation: awake and alert Speech: speech normal Psych affect normal Lab / Micro Data Attestation: I reviewed the patient's lab results. Result Diagrams: 08/01/22 06:58 08/02/22 04:57 Labs: Laboratory Results - last 24 hr 08/02/22 14:30: Hep Bs Antigen Non-Reactive 08/02/22 16:55: POC Glucose 117 H 08/02/22 20:16: POC Glucose 250 H 08/03/22 06:32: POC Glucose 109 H 08/03/22 12:32: POC Glucose 184 H Micro: Microbiology 08/01/22 09:33 Blood Culture (Wb) - Anticubital Left Blood Culture - Preliminary No growth in 48 hours. 08/01/22 09:06 Blood Culture (Wb) - Anticubital Left Blood Culture - Preliminary No growth in 48 hours. 08/02/22 11:00 Interface Orders Streptococcus pneumoniae Antigen (M - Final 08/02/22 11:00 Interface Orders Legionella Antigen - Final 08/01/22 21:27 Mucosa - Nose Respiratory Panel (PCR) - Final Radiology Impression Chest X-Ray 08/03/22 05:35 IMPRESSION: 1. Bilateral pneumonia with improvement in the left lung component. Left lower lobe segmental atelectasis. 2. Stable cardiomegaly. Electronically Signed: Robson Delaney MD at 9:34 EST Reading Location ID and State: [id number] [facility] Tel , Service support , Chest X-Ray 08/03/22 08:25 IMPRESSION: No interval change. Electronically Signed: Robson Delaney MD at 8:43 EST , Charges/Coding Visit Charges Inpatient E&M: 29001 Init Hosp L2
[2022-08-03] MEDS: Magnesium Chloride 64 MG Delay Rel.Tablet 128 MG PO ×2 (14:23→20:32)
[2022-08-03] MEDS: Famotidine 20 MG Tablet PO (14:23)
[2022-08-03] MEDS: Calcium Acetate 667 MG Capsule PO ×2 (14:23→17:14)
[2022-08-03] MEDS: Furosemide 40 MG Tablet PO (14:24)
[2022-08-03] MEDS: Losartan Potassium 50 MG Tablet PO (14:24)
[2022-08-03] MEDS: amLODIPine 10 MG Tablet PO (14:24)
[2022-08-03] MEDS: Ferrous Sulfate 325 MG Tablet PO (14:24)
[2022-08-03] MEDS: Multivitamins,Therapeutic Tablet 1 TABLET PO (14:24)
[2022-08-03] MEDS: Ceftriaxone 1 GM/50 ML BAG IV (14:36)
[2022-08-03] MEDS: Cholecalciferol (VIT D3) 25 MCG TABLET (1,000 UNITS) 50 MCG PO (15:35)
--- NOTE | 2022-08-03 16:10 | PCM.PN.HOSP ---
Subjective Subjective Patient was seen and examined today, I had pulmonary medicine see the patient in an effort to determine whether she indeed had a pneumonia or whether this was mostly fluid or respiratory embarrassment from underlying COPD. Pulmonary medicine felt that it was unlikely that she had a pneumonia, I took the step of stopping her antibiotics and observing her off the antibiotics for now. Patient did have dialysis today, she will be reevaluated tomorrow to see if her oxygen requirement is less. Objective Data Objective Data Vital Signs: Vital Signs Temp Pulse Resp BP Pulse Ox O2 Del Method O2 Flow Rate 98.3 F 69 16 170/81 H 100 Nasal Cannula 4 08/03/22 14:21 08/03/22 14:55 08/03/22 14:21 08/03/22 14:21 08/03/22 14:21 08/03/22 14:21 08/03/22 14:21 FiO2 50 08/01/22 11:20 Oxygen Flow Rate (L/min) 4 Oxygen Delivery Method Nasal Cannula Weight: 63.276 kg Body Mass Index (BMI) 26.3 Intake & Output: Intake and Output for Last 24 Hours 08/01/22 08/02/22 08/03/22 23:59 23:59 23:59 Intake Total 2175 / 2175 1185 / 1185 890 / 890 Output Total 7150 / 7150 4450 / 4450 Balance 2175 / 2175 -5965 / -5965 -3560 / -3560 Lab / Micro Data Result Diagrams: 08/01/22 06:58 08/02/22 04:57 Labs: Laboratory Results - last 24 hr 08/02/22 14:30: Hep Bs Antigen Non-Reactive 08/02/22 16:55: POC Glucose 117 H 08/02/22 20:16: POC Glucose 250 H 08/03/22 06:32: POC Glucose 109 H 08/03/22 12:32: POC Glucose 184 H Micro: Microbiology 08/01/22 09:33 Blood Culture (Wb) - Anticubital Left Blood Culture - Preliminary No growth in 48 hours. 08/01/22 09:06 Blood Culture (Wb) - Anticubital Left Blood Culture - Preliminary No growth in 48 hours. 08/02/22 11:00 Interface Orders Streptococcus pneumoniae Antigen (M - Final 08/02/22 11:00 Interface Orders Legionella Antigen - Final 08/01/22 21:27 Mucosa - Nose Respiratory Panel (PCR) - Final 08/01/22 07:24 Nasal Secretion SARS-CoV-2 & FLU Antigen (Rapid) - Final Radiography Diagnostic Testing: Radiology Impression Chest X-Ray 08/03/22 05:35 IMPRESSION: 1. Bilateral pneumonia with improvement in the left lung component. Left lower lobe segmental atelectasis. 2. Stable cardiomegaly. Electronically Signed: Robson Delaney MD at 9:34 EST , Chest X-Ray 08/03/22 08:25 IMPRESSION: No interval change. Electronically Signed: Robson Delaney MD at 8:43 EST , Physical Exam Const alert, oriented x3 and no apparent distress Constitutional Narrative: Patient appears older than her stated age HEENT head/scalp atraumatic and moist oral mucous membranes Neck supple and no JVD Resp normal respiratory effort, no retractions, no use of accessory muscles and clear to auscultation bilaterally Cardio regular rate, regular rhythm, S1 normal heart sound, S2 normal heart sound, no murmurs and no rub GI normal to inspection, nondistended, normoactive bowel sounds, soft to palpation, non-tender and non-distended Extremity normal to inspection and no clubbing, cyanosis or edema Neuro oriented x3, CN's II-XII intact bilaterally, moves all extremities and no focal motor deficits Psych affect normal Assessment & Plan Assessment/Plan (1) Respiratory failure with hypoxia: PLAN: Plan 1. Acute hypoxic respiratory failure secondary to fluid overload from end-stage renal disease-continue present care, patient received dialysis today #2 moderate pulmonary hypertension-due to this, it is likely the patient will need to stay on the dry side after dialysis. #3 end-stage renal disease on dialysis-nephrology will participate in the patient's care, was receiving dialysis today #4 type 2 diabetes-patient's blood sugars will be monitored, sliding scale insulin will be used #5 essential hypertension-patient will remain on her present medications #6 hyperkalemia-patient will undergo dialysis today, labs will be monitored #7 hyperlipidemia-patient will remain on atorvastatin Charges/Coding Visit Charges Inpatient E&M: 54953 Subs Hosp L2
[2022-08-03] MEDS: 0.9% Saline Lock 10 ML Syringe IV (17:15)
[2022-08-03 17:35] LABS: Bedside Glucose 260 mg/dL (74-106)
--- NOTE | 2022-08-03 20:26 | NURSING ---
REDUCED O2 TO 2L AND MONITORED PT FOR 6M. SPO2 DROPPED TO 90% WHILE AWAKE. O2 INCREASED BACK TO 3L.
[2022-08-03] MEDS: Atorvastatin Calcium 80 MG Tablet PO (20:31)
[2022-08-03] MEDS: Heparin Injection (Vial) 5,000 UNIT/ML VIAL 5000 UNIT SC (20:32)
[2022-08-03] MEDS: Metoprolol(XL)Succ 50 MG Tablet PO (20:32)
[2022-08-03] MEDS: Pramipexole Di-HCl 0.25 MG Tablet PO (20:32)
[2022-08-03] MEDS: Gabapentin 300 MG Capsule 900 MG PO (20:37)
[2022-08-03 21:05] LABS: Bedside Glucose 227 mg/dL (74-106)
[2022-08-04] VITALS (8 sets, daily range): BP systolic 143–152; BP diastolic 60–71; PULSE 68–70; RESP 16–20; TEMP 36.6; O2SAT 90–100
[2022-08-04 07:00] LABS: Bedside Glucose 126 mg/dL (74-106)
[2022-08-04] MEDS: Albuterol 2.5 MG/3 ML VIAL.NEB. INHALATION (07:03)
[2022-08-04 07:36] LABS: Anion Gap 7 (5-15); BUN 31 mg/dL (7-18); BUN/Creat Ratio 7.5 RATIO (10-20); Calcium,Total 9.3 mg/dL (8.5-10.1); Chloride 98 mmol/L (98-107); Creatinine, Serum 4.13 mg/dL (0.55-1.02); EST Glomerular Filtration Rate 12 mL/min (>60); Est Glom Filt Rate - Afr Amer 15 mL/min (>60); Estimated Creatinine Clearance 12.43 ml/min; Glucose 111 mg/dL (74-106); Potassium 4.7 mmol/L (3.5-5.1); Sodium Level 132 mmol/L (136-145)
[2022-08-04] MEDS: Multivitamins,Therapeutic Tablet 1 TABLET PO (08:23)
[2022-08-04] MEDS: Ferrous Sulfate 325 MG Tablet PO (08:23)
[2022-08-04] MEDS: Calcium Acetate 667 MG Capsule PO ×2 (08:23→12:18)
[2022-08-04] MEDS: Cholecalciferol (VIT D3) 25 MCG TABLET (1,000 UNITS) 50 MCG PO (09:24)
[2022-08-04] MEDS: Magnesium Chloride 64 MG Delay Rel.Tablet 128 MG PO (09:25)
[2022-08-04] MEDS: Heparin Injection (Vial) 5,000 UNIT/ML VIAL 5000 UNIT SC (09:25)
[2022-08-04] MEDS: Furosemide 40 MG Tablet PO (09:25)
[2022-08-04] MEDS: Famotidine 20 MG Tablet PO (09:25)
[2022-08-04] MEDS: Losartan Potassium 50 MG Tablet PO (09:25)
[2022-08-04] MEDS: amLODIPine 10 MG Tablet PO (09:25)
[2022-08-04] MEDS: Fluoxetine HCl 40 MG CAPSULE PO (09:27)
--- NOTE | 2022-08-04 10:22 | PCM.DC ---
Discharge Instructions Diet Discharge Diet: 1800 Calorie Control Diet Activity Discharge Activity: Return to Normal Activity Weight Bearing Status: Full weight bearing Follow Up Care Test Results: Test results from this visit will be discussed in further detail at your follow-up appointment, if applicable. 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 Discharge Orders/Prescriptions Prescriptions: New pramipexole 0.25 mg Tablet 0.25 mg PO QHS Qty: 0 0RF valsartan 160 mg tablet 160 mg PO DAILY Qty: 30 0RF metoprolol succinate 50 mg tablet extended release 24 hr 50 mg PO DAILY Qty: 30 0RF Continued gabapentin 300 MG capsule 300 mg PO TID PRN (Reason: NERVE PAIN) multivitamin 1 EACH tablet 1 tab PO DAILY lysine 1,000 MG tablet 1,000 mg PO DAILY amlodipine 10 MG tablet 10 mg PO DAILY Label Comments: TAKE 1 TABLET BY MOUTH DAILY cholecalciferol (vitamin D3) 1,000 UNIT tablet 2,000 unit PO DAILY ferrous sulfate 325 MG tablet 325 mg PO DAILY Label Comments: TAKE 1 TABLET EVERY DAY WITH breakfast famotidine 20 mg tablet 20 mg PO BID Label Comments: TAKE 1 TABLET BY MOUTH TWICE DAILY calcium acetate(phosphat bind) 667 mg capsule 1 cap PO TID Label Comments: TAKE 1 CAPSULE BY MOUTH THREE TIMES DAILY WITH MEALS atorvastatin 80 mg Tablet 80 mg PO QHS cyclobenzaprine 10 mg tablet 5 - 10 mg PO TID PRN (Reason: MUSCLE SPASMS) Label Comments: TAKE 1/2 (ONE-HALF) TO 1 (ONE) TABLET THREE TIMES DAILY NEEDED FOR MUSCLE SPASMS omega-3 fatty acids 1,000 mg capsule 2,000 mg PO BID Label Comments: TAKE 2 CAPSULES BY MOUTH TWICE DAILY metoprolol succinate 50 mg tablet extended release 24 hr 50 mg PO QHS Label Comments: TAKE 1 TABLET BY MOUTH DAILY lidocaine-prilocaine 2.5-2.5 % cream 1 applic topical PRN PRN (Reason: PORT ACCESS) magnesium oxide 400 mg (241.3 mg magnesium) tablet 800 mg PO BREAKFAST Label Comments: TAKE 1 TABLET BY MOUTH THREE TIMES DAILY magnesium oxide 400 mg (241.3 mg magnesium) tablet 400 mg PO QHS Label Comments: TAKE 1 TABLET BY MOUTH THREE TIMES DAILY meclizine 25 mg Tablet 25 mg PO BID PRN (Reason: Motion Sickness) Keira-Nohemi 0.8 mg tablet 1 tab PO DAILY Label Comments: TAKE 1 TABLET BY MOUTH DAILY pramipexole 0.25 mg tablet 0.25 mg PO QHS Discontinued furosemide 40 mg tablet 40 mg PO DAILY Referrals / Follow Up: Leif Arellano MD [Med Staff - Active Staff] - See Referral Note (call for appointment in 2-3 weeks for follow up) Ivory Reynaga DO [Med Staff - Consulting] - See Referral Note (as directed) Colin Pedraza [Primary Care Provider] - See Referral Note (in two weeks-bring in all your medications with you at the visit) Disposition Disposition (needs filled in before D/C Order can be placed): Home, Self Care
--- NOTE | 2022-08-04 11:10 | PCM.DC.SUM ---
Providers Date of Admission: 08/01/22 Date of Discharge: 08/04/22 Primary Care Physician: Colin Pedraza Consultations 08/01/22 11:15 Consult: Nephrology Routine Consulting Provider: Ivory Reynaga Reason for Consult: ESRD EMERGENT Consult: No Notified: Yes Date Notified: 08/01/22 Time Notified: 09:39 Method of Notification: Verbal 08/03/22 11:03 Consult: Class A [facility] / Pulmonary Medicine Routine Consulting Provider: Pulmonary Medicine saman [place] Reason for Consult: respiratory failure EMERGENT Consult: No Notified: Yes Date Notified: 08/03/22 Time Notified: 11:03 Method of Notification: Verbal Reason For Visit: RESPIRATORY FAILURE, PNEUMONIA Diagnosis Discharge Diagnosis (1) Respiratory failure with hypoxia: Status: Acute Code(s): J96.91 - Respiratory failure, unspecified with hypoxia Plan 1. Acute hypoxic respiratory failure secondary to fluid overload from end-stage renal disease #2 moderate pulmonary hypertension-due to this, it is likely the patient will need to stay on the dry side after dialysis. #3 end-stage renal disease on dialysis-nephrology will participate in the patient's care, was receiving dialysis today #4 type 2 diabetes-patient's blood sugars will be monitored, sliding scale insulin will be used #5 essential hypertension-patient will remain on her present medications #6 hyperkalemia-patient will undergo dialysis today, labs will be monitored #7 hyperlipidemia-patient will remain on atorvastatin Community-acquired pneumonia was ruled out Medications at Discharge Home Medications gabapentin 300 mg capsule 300 mg PO TID PRN NERVE PAIN 05/27/16 amlodipine 10 mg tablet 10 mg PO DAILY BLOOD PRESSURE 04/16/19 cholecalciferol (vitamin D3) 25 mcg (1,000 unit) tablet 2,000 unit PO DAILY supplement 04/16/19 lysine 1,000 mg tablet 1,000 mg PO DAILY supplement 04/16/19 multivitamin 1 tab PO DAILY supplement 04/16/19 ferrous sulfate 325 mg (65 mg iron) tablet 325 mg PO DAILY supplement 04/22/19 calcium acetate(phosphat bind) 667 mg capsule 1 cap PO TID 03/23/22 famotidine 20 mg tablet 20 mg PO BID ACID REFLUX 03/23/22 atorvastatin 80 mg tablet 80 mg PO QHS CHOLESTEROL 05/04/22 cyclobenzaprine 10 mg tablet 5 - 10 mg PO TID PRN MUSCLE SPASMS 08/01/22 lidocaine-prilocaine 2.5 %-2.5 % topical cream 1 applic topical PRN PRN PORT ACCESS 08/01/22 magnesium oxide 400 mg (241.3 mg magnesium) tablet 400 mg PO QHS SUPPLEMENT 08/01/22 magnesium oxide 400 mg (241.3 mg magnesium) tablet 800 mg PO BREAKFAST SUPPLEMENT 08/01/22 meclizine 25 mg tablet 25 mg PO BID PRN Motion Sickness 08/01/22 metoprolol succinate 50 mg tablet,extended release 24 hr 50 mg PO QHS BLOOD PRESSURE 08/01/22 omega-3 fatty acids 1,000 mg capsule 2,000 mg PO BID SUPPLEMENT 08/01/22 pramipexole 0.25 mg tablet 0.25 mg PO QHS RESTLESS LEGS 08/01/22 vitamin B complex-vitamin C-folic acid 0.8 mg tablet (Keira-Nohemi) 1 tab PO DAILY SUPPLEMENT 08/01/22 metoprolol succinate 50 mg tablet,extended release 24 hr 50 mg PO DAILY #30 tabs 08/04/22 pramipexole 0.25 mg tablet 0.25 mg PO QHS #0 tabs 08/04/22 valsartan 160 mg tablet 160 mg PO DAILY #30 tabs 08/04/22 Hospital Course Operations None Procedures 2-D Echocardiogram and Dialysis Summary of Care Provided Minutes Spent on Discharge: 32 Hospital Course: This 51-year-old white female was seen in the emergency room at [facility] with a chief complaint of increased shortness of breath which started the morning she was seen in the emergency room, during her emergency room stay she became more hypoxic and had to be placed on high flow oxygen. Chest x-ray showed bilateral infiltrates and there was a suggestion of a lower lobe pneumonia. Patient was a dialysis patient and was due for her scheduled dialysis the morning she was seen in the emergency room. Patient was admitted to PCU for acute respiratory failure, pulmonary edema secondary to fluid overload, and possible pneumonia, she was kept on IV antibiotics and underwent emergent dialysis and was given IV Lasix. Patient's respiratory status slowly improved over the next 24 hours, she was seen in consultation by pulmonary medicine who felt that the patient's respiratory embarrassment was due to fluid overload and not pneumonia. Echocardiogram showed a normal ejection fraction with evidence of moderate pulmonary hypertension. On 08/04/2022, patient was seen and examined: On examination she appeared in good health and spirits, she does not appear to be in any distress. Vital signs as documented. Skin warm and dry and without overt rashes. Neck without JVD, thyroid appears normal, trachea is midline, neck is supple. Lungs clear, normal air movement was noted. Heart exam notable for regular rhythm, normal sounds and absence of murmurs, rubs or gallops. Abdomen unremarkable and without evidence of organomegaly, masses, or abdominal aortic enlargement, bowel sounds are present in all 4 quadrants, no abdominal tenderness was noted. Extremities nonedematous, no cyanosis was noted, no clubbing was noted. Neuro: Cranial nerves II through XII are grossly intact, no focal motor deficits were noted, sensation to light touch and pinprick is intact, motor exam 5/5 throughout. Psych: Patient is alert and oriented x3, she does not appear anxious or depressed, she does not appear agitated. Patient was felt to be stable for discharge on 08/04/2022, she did not require outpatient oxygen at the time of discharge from the hospital Weight / BMI Weight Weight: 63.276 kg Body Mass Index (BMI) 26.3 ABG / Lab / Microbiology Data Result Diagrams: 08/01/22 06:58 08/04/22 06:41 Laboratory: Laboratory Results - last 24 hr 08/03/22 12:32: POC Glucose 184 H 08/03/22 17:11: POC Glucose 260 H 08/03/22 20:30: POC Glucose 227 H 08/04/22 06:41: Sodium 132 L, Potassium 4.7, Chloride 98, Carbon Dioxide 27.0, Anion Gap 7, BUN 31 H, Creatinine 4.13 H, Estim Creat Clear Calc 12.43, Est GFR (MDRD) Af Amer 15 L, Est GFR (MDRD) Non-Af 12 L, BUN/Creatinine Ratio 7.5 L, Glucose 111 H, Calcium 9.3 08/04/22 06:43: POC Glucose 126 H Microbiology: Microbiology 08/01/22 09:33 Blood Culture (Wb) - Anticubital Left Blood Culture - Preliminary No growth in 48 hours. 08/01/22 09:06 Blood Culture (Wb) - Anticubital Left Blood Culture - Preliminary No growth in 48 hours. 08/02/22 11:00 Interface Orders Streptococcus pneumoniae Antigen (M - Final 08/02/22 11:00 Interface Orders Legionella Antigen - Final 08/01/22 21:27 Mucosa - Nose Respiratory Panel (PCR) - Final 08/01/22 07:24 Nasal Secretion SARS-CoV-2 & FLU Antigen (Rapid) - Final D/C Instructions Discharge Diet: 1800 Calorie Control Diet Weight Bearing Status: Full weight bearing Meaningful Use Info Meaningful Use Diagnoses (Choose all that apply): None applicable Discharge Plan Admission Admit Date/Time: 08/01/22 09:28 Primary Reason for Your Visit: pulmonary edema Attending Provider: Marc Mota Primary Care Provider: Colin Pedraza Consulting Providers: Ivory Reynaga ; Luba Aadms ; Leif Arellano ; Sonu Arboleda ; Ronnell Orellana ; Panchito Cisse ; Sara Weinstein ONLINE MARKETING SPECIALIST Instructions Additional Instructions / Restrictions: Patient Problems: Altered Health Status related to Hospitalization Patient Goals: *Optimal Level of Health *Keep Appointments *Medication Compliance *Remain Safe Discharge Orders/Prescriptions Prescriptions: New pramipexole 0.25 mg Tablet 0.25 mg PO QHS Qty: 0 0RF valsartan 160 mg tablet 160 mg PO DAILY Qty: 30 0RF metoprolol succinate 50 mg tablet extended release 24 hr 50 mg PO DAILY Qty: 30 0RF Continued gabapentin 300 MG capsule 300 mg PO TID PRN (Reason: NERVE PAIN) multivitamin 1 EACH tablet 1 tab PO DAILY lysine 1,000 MG tablet 1,000 mg PO DAILY amlodipine 10 MG tablet 10 mg PO DAILY Label Comments: TAKE 1 TABLET BY MOUTH DAILY cholecalciferol (vitamin D3) 1,000 UNIT tablet 2,000 unit PO DAILY ferrous sulfate 325 MG tablet 325 mg PO DAILY Label Comments: TAKE 1 TABLET EVERY DAY WITH breakfast famotidine 20 mg tablet 20 mg PO BID Label Comments: TAKE 1 TABLET BY MOUTH TWICE DAILY calcium acetate(phosphat bind) 667 mg capsule 1 cap PO TID Label Comments: TAKE 1 CAPSULE BY MOUTH THREE TIMES DAILY WITH MEALS atorvastatin 80 mg Tablet 80 mg PO QHS cyclobenzaprine 10 mg tablet 5 - 10 mg PO TID PRN (Reason: MUSCLE SPASMS) Label Comments: TAKE 1/2 (ONE-HALF) TO 1 (ONE) TABLET THREE TIMES DAILY NEEDED FOR MUSCLE SPASMS omega-3 fatty acids 1,000 mg capsule 2,000 mg PO BID Label Comments: TAKE 2 CAPSULES BY MOUTH TWICE DAILY metoprolol succinate 50 mg tablet extended release 24 hr 50 mg PO QHS Label Comments: TAKE 1 TABLET BY MOUTH DAILY lidocaine-prilocaine 2.5-2.5 % cream 1 applic topical PRN PRN (Reason: PORT ACCESS) magnesium oxide 400 mg (241.3 mg magnesium) tablet 800 mg PO BREAKFAST Label Comments: TAKE 1 TABLET BY MOUTH THREE TIMES DAILY magnesium oxide 400 mg (241.3 mg magnesium) tablet 400 mg PO QHS Label Comments: TAKE 1 TABLET BY MOUTH THREE TIMES DAILY meclizine 25 mg Tablet 25 mg PO BID PRN (Reason: Motion Sickness) Keira-Nohemi 0.8 mg tablet 1 tab PO DAILY Label Comments: TAKE 1 TABLET BY MOUTH DAILY pramipexole 0.25 mg tablet 0.25 mg PO QHS Discontinued furosemide 40 mg tablet 40 mg PO DAILY Referrals / Follow Up: Leif Arellano MD [Med Staff - Active Staff] - See Referral Note (call for appointment in 2-3 weeks for follow up) Ivory Reynaga DO [Med Staff - Consulting] - See Referral Note (as directed) Colin Pedraza [Primary Care Provider] - See Referral Note (in two weeks-bring in all your medications with you at the visit) Disposition Disposition (needs filled in before D/C Order can be placed): Home, Self Care Charges/Coding Visit Charges Inpatient E&M: 32649 Disch Hosp
[2022-08-04 12:26] LABS: Bedside Glucose 148 mg/dL (74-106)
--- NOTE | 2022-08-04 13:05 | NURSING ---
Discharge instructions reviewed with patient; pt has no questions at this time. IV removed without complications. Pt left via [facility] with all belongings.
== END 2022-08-04 13:10 | disposition home or self-care (01) | DRG 425 ==
LOC: ED 09:17 → PCU 10:29
PROVIDERS: Internal Medicine Nephrology; Admitting Provider Internal Medicine; Emergency Provider Emergency Medicine; PCP Student in an Organized Health Care Education/Training Program; Visit Provider Internal Medicine
DX: E87.70 Fluid overload, unspecified (principal); J96.01 Acute respiratory failure with hypoxia; I12.0 Hypertensive chronic kidney disease with stage 5 chronic kidney disease or end stage renal disease; I27.20 Pulmonary hypertension, unspecified; N18.6 End stage renal disease; E11.319 Type 2 diabetes mellitus with unspecified diabetic retinopathy without macular edema; E11.21 Type 2 diabetes mellitus with diabetic nephropathy; E11.40 Type 2 diabetes mellitus with diabetic neuropathy, unspecified; E11.22 Type 2 diabetes mellitus with diabetic chronic kidney disease; Z99.2 Dependence on renal dialysis; D50.9 Iron deficiency anemia, unspecified; E87.5 Hyperkalemia; E78.00 Pure hypercholesterolemia, unspecified; E78.5 Hyperlipidemia, unspecified; Z87.891 Personal history of nicotine dependence
CPT/HCPCS: 36415; 71045; 71046; 71275; 80048; 80069; 82962; 83605; 84484; 85025; 85379; 87040; 87340; 87428; 87449; 87633; 87635; 90937; 93005; 93306; 94640; 99251; 99285; J7030; Q9967; A4216; G0257; G0463; J0610; J1940; J2916; Q5106; U0003; U0005

== ENCOUNTER 2022-10-05 17:41 | Emergency (ER) | payer MEDICAID, SELFPAY ==
[2022-10-05 17:43] VITALS: BP 146/80; PULSE 91; RESP 17; TEMP 36.6; O2SAT 100; BMI 24.6
--- NOTE | 2022-10-05 18:15 | EDS_ITS ---
HPI History of Present Illness Chief Complaint: Abn Labs Narrative Narrative: 52-year-old female past medical history of diabetes, end-stage renal disease and gets dialysis Saturday, Saturday, and Saturday. She states that she went to her primary care physician yesterday, , because of restless leg syndrome. She had laboratory work drawn, and was told today that her potassium was high, above 6. Of note, she went through dialysis today and completed the majority of her dialysis except for they may have stopped it 10 minutes short of completion because she restarted developing chest heaviness and lightheadedness. It was noted that her blood pressure was low. She states that she had to stay at the dialysis center until her blood pressure normalized. Currently, she is asymptomatic, she presents because of her elevated potassium from her blood work yesterday. [facility] Medical History Anemia Anxiety Arthritis Back pain Cancer Chest pain Chronic kidney failure Chronic renal disease, stage 5, glomerular filtration rate (GFR) less than or equal to 15 mL/min/1.73 square meter Diabetes Dialysis patient Exertional shortness of breath Fistula Former smoker Gastric reflux High cholesterol History of basal cell cancer History of echocardiogram History of irregular heartbeat History of pain when walking History of renal disease Hypertension Injury of head and neck Iron deficiency anemia Pleural effusion Post-menopausal Type 2 diabetes mellitus with diabetic chronic kidney disease Wears dentures Wears glasses Home Medications gabapentin 300 mg capsule 300 mg PO TID PRN NERVE PAIN 05/27/16 [History Last Taken 07/30/22] amlodipine 10 mg tablet 10 mg PO DAILY BLOOD PRESSURE 04/16/19 [History Last Taken 07/31/22] cholecalciferol (vitamin D3) 25 mcg (1,000 unit) tablet 2,000 unit PO DAILY supplement 04/16/19 [History Last Taken 07/31/22] lysine 1,000 mg tablet 1,000 mg PO DAILY supplement 04/16/19 [History Last Taken 07/31/22] multivitamin 1 tab PO DAILY supplement 04/16/19 [History Last Taken 07/31/22] calcium acetate(phosphat bind) 667 mg capsule 1 cap PO TID 03/23/22 [History Last Taken 07/31/22] famotidine 20 mg tablet 20 mg PO BID ACID REFLUX 03/23/22 [History Last Taken 07/31/22] atorvastatin 80 mg tablet 80 mg PO QHS CHOLESTEROL 05/04/22 [History Last Taken 07/31/22] cyclobenzaprine 10 mg tablet 5 - 10 mg PO TID PRN MUSCLE SPASMS 08/01/22 [History Last Taken 07/31/22] lidocaine-prilocaine 2.5 %-2.5 % topical cream 1 applic topical PRN PRN PORT ACCESS 08/01/22 [History Last Taken 07/30/22] magnesium oxide 400 mg (241.3 mg magnesium) tablet 400 mg PO QHS SUPPLEMENT 08/01/22 [History Last Taken 07/31/22] magnesium oxide 400 mg (241.3 mg magnesium) tablet 800 mg PO BREAKFAST SUPPLEMENT 08/01/22 [History Last Taken 07/31/22] meclizine 25 mg tablet 25 mg PO BID PRN Motion Sickness 08/01/22 [History Last Taken Unknown] metoprolol succinate 50 mg tablet,extended release 24 hr 50 mg PO QHS BLOOD PRESSURE 08/01/22 [History Last Taken 07/31/22] omega-3 fatty acids 1,000 mg capsule 2,000 mg PO BID SUPPLEMENT 08/01/22 [History Last Taken 07/31/22] pramipexole 0.25 mg tablet 0.25 mg PO QHS RESTLESS LEGS 08/01/22 [History Last Taken 07/31/22] vitamin B complex-vitamin C-folic acid 0.8 mg tablet (Keira-Nohemi) 1 tab PO DAILY SUPPLEMENT 08/01/22 [History Last Taken 07/31/22] metoprolol succinate 50 mg tablet,extended release 24 hr 50 mg PO DAILY #30 tabs 08/04/22 [Rx Last Taken Unknown] pramipexole 0.25 mg tablet 0.25 mg PO QHS #0 tabs 08/04/22 [Rx Last Taken Unknown] valsartan 160 mg tablet 160 mg PO DAILY #30 tabs 08/04/22 [Rx Last Taken Unknown] Allergy/AdvReac Type Severity Reaction Status Date / Time No Known Allergies Allergy Verified 10/05/22 17:42 Surgical History H/O local excision of skin lesion History of arteriovenostomy for renal dialysis (~03/2022) Hx of tooth extraction Social History household members: none Smoking Status: Former smoker alcohol intake: never ROS ROS ED ROS Narrative Constitutional: No fever, no chills. Reported high potassium on blood work yesterday. HEENT: No sore throat. No neck pain. No loss of vision. No rhinorrhea. Cardiovascular: No chest pain. No palpitations. No pedal edema. Respiratory: No cough, no shortness of breath. Abdominal: No abdominal pain. No nausea. No vomiting. Genitourinary: No dysuria. No hematuria. Musculoskeletal: No myalgias. No arthralgias. Neurologic: No headaches. No dizziness. No lightheadedness. Skin: No rash. No change in color. Psychiatric: No depression. No anxiety. EXAM Physical Exam Narrative Exam Narrative: Afebrile. Vital signs noted. HEENT: Normocephalic. Atraumatic. PERRL, EOMI. Neck soft and supple. No point tenderness or step off. Cardiovascular: Regular rate and rhythm. No murmurs, rubs, or gallops appreciated. Respiratory: No tachypnea. Lungs clear to auscultation bilaterally. Gastrointestinal: Abdomen soft, nontender, with normoactive bowel sounds. No rebound or guarding. Neurological: Awake. Alert. Nonfocal, nonlateralizing. Skin: No rash. Normal color. No pallor. Musculoskeletal: No pedal edema. Const Vital Signs: 10/05/22 17:43 10/05/22 17:54 Temperature 97.8 F Temperature Source Temporal Pulse Rate 91 Respiratory Rate 17 Respiratory Effort Normal Non-Labored Respiratory Pattern Normal Blood Pressure 146/80 H Blood Pressure Mean 102 Pulse Ox 100 Oxygen Delivery Method Room Air MDM MDM MDM Narrative Medical decision making narrative: I was unable to review her laboratory work from yesterday. However, as she reports that it was over 6, and she went to dialysis today and almost completed the full session except for 10 minutes, I do feel that her potassium would most likely be normalized. BMP was sent to look to see if she still has hyperkalemia after dialysis. BMP was reviewed. Sodium 133, but above most significant, potassium is normal at 4.9. Creatinine elevated at 4.7 consistent with her end-stage renal disease. Glucose is elevated at 355 but she has a normal anion gap of 10. At this point in time, I feel she be discharged safely home with follow-up. She will continue her dialysis on Saturday. Return instructions to the emergency department were reviewed. Disposition is discharged home in stable condition. Lab Data Attestation: I reviewed the patient's lab results. Labs: Laboratory Results - last 24 hr 10/05/22 18:05 Sodium 133 L Potassium 4.9 Chloride 93 L Carbon Dioxide 30.0 Anion Gap 10 BUN 29 H Creatinine 4.70 H Estim Creat Clear Calc 11.33 Est GFR (MDRD) Af Amer 13 L Est GFR (MDRD) Non-Af 11 L BUN/Creatinine Ratio 6.2 L Glucose 355 H Calcium 9.8 Discharge Plan Triage Chief Complaint: Abn Labs ED Provider: Harvey Muro Dx/Rx/DC Orders Clinical Impression: Encounter for medical screening examination, ESRD on dialysis Instructions: ED Screening Exam Medical Nonurgent Prescriptions: No Action gabapentin 300 MG capsule 300 mg PO TID PRN (Reason: NERVE PAIN) multivitamin 1 EACH tablet 1 tab PO DAILY lysine 1,000 MG tablet 1,000 mg PO DAILY amlodipine 10 MG tablet 10 mg PO DAILY Label Comments: TAKE 1 TABLET BY MOUTH DAILY cholecalciferol (vitamin D3) 1,000 UNIT tablet 2,000 unit PO DAILY famotidine 20 mg tablet 20 mg PO BID Label Comments: TAKE 1 TABLET BY MOUTH TWICE DAILY calcium acetate(phosphat bind) 667 mg capsule 1 cap PO TID Label Comments: TAKE 1 CAPSULE BY MOUTH THREE TIMES DAILY WITH MEALS atorvastatin 80 mg Tablet 80 mg PO QHS cyclobenzaprine 10 mg tablet 5 - 10 mg PO TID PRN (Reason: MUSCLE SPASMS) Label Comments: TAKE 1/2 (ONE-HALF) TO 1 (ONE) TABLET THREE TIMES DAILY NEEDED FOR MUSCLE SPASMS omega-3 fatty acids 1,000 mg capsule 2,000 mg PO BID Label Comments: TAKE 2 CAPSULES BY MOUTH TWICE DAILY metoprolol succinate 50 mg tablet extended release 24 hr 50 mg PO QHS Label Comments: TAKE 1 TABLET BY MOUTH DAILY lidocaine-prilocaine 2.5-2.5 % cream 1 applic topical PRN PRN (Reason: PORT ACCESS) magnesium oxide 400 mg (241.3 mg magnesium) tablet 800 mg PO BREAKFAST Label Comments: TAKE 1 TABLET BY MOUTH THREE TIMES DAILY magnesium oxide 400 mg (241.3 mg magnesium) tablet 400 mg PO QHS Label Comments: TAKE 1 TABLET BY MOUTH THREE TIMES DAILY meclizine 25 mg Tablet 25 mg PO BID PRN (Reason: Motion Sickness) Keira-Nohemi 0.8 mg tablet 1 tab PO DAILY Label Comments: TAKE 1 TABLET BY MOUTH DAILY pramipexole 0.25 mg tablet 0.25 mg PO QHS pramipexole 0.25 mg Tablet 0.25 mg PO QHS Qty: 0 0RF valsartan 160 mg tablet 160 mg PO DAILY Qty: 30 0RF metoprolol succinate 50 mg tablet extended release 24 hr 50 mg PO DAILY Qty: 30 0RF Primary Care Provider: Colin Pedraza Referrals: Colin Pedraza [Primary Care Provider] - As Needed Disposition Disposition: Home, Self Care
[2022-10-05 18:50] LABS: Anion Gap 10 (5-15); BUN 29 mg/dL (7-18); BUN/Creat Ratio 6.2 RATIO (10-20); Calcium,Total 9.8 mg/dL (8.5-10.1); Chloride 93 mmol/L (98-107); EST Glomerular Filtration Rate 11 mL/min (>60); Est Glom Filt Rate - Afr Amer 13 mL/min (>60); Estimated Creatinine Clearance 11.33 ml/min; Glucose 355 mg/dL (74-106); Potassium 4.9 mmol/L (3.5-5.1); Sodium Level 133 mmol/L (136-145)
== END 2022-10-05 19:38 | disposition home or self-care (01) ==
PROVIDERS: Emergency Provider Emergency Medicine; PCP Student in an Organized Health Care Education/Training Program; Visit Provider Emergency Medicine
DX: N18.6 End stage renal disease (principal); Z99.2 Dependence on renal dialysis; E11.22 Type 2 diabetes mellitus with diabetic chronic kidney disease; E11.65 Type 2 diabetes mellitus with hyperglycemia; I12.0 Hypertensive chronic kidney disease with stage 5 chronic kidney disease or end stage renal disease; G25.81 Restless legs syndrome; E78.00 Pure hypercholesterolemia, unspecified; Z87.891 Personal history of nicotine dependence
CPT/HCPCS: 80048; 99283; A4216

== ENCOUNTER → 2022-10-22 | Outpatient (CLI) | payer MEDICAID, SELFPAY ==
[2022-10-22 10:18] LABS: Potassium 6.6 mmol/L (3.5-5.1)
== END | disposition home or self-care (01) ==
LOC: LABSPEC 09:56
PROVIDERS: PCP Student in an Organized Health Care Education/Training Program; Visit Provider Internal Medicine Nephrology
DX: E87.5 Hyperkalemia (principal)
CPT/HCPCS: 84132

== ENCOUNTER 2022-10-26 08:13 | Emergency (ER) | payer MEDICAID, SELFPAY ==
[2022-10-26 08:14] VITALS: BP 130/94; PULSE 80; RESP 17; TEMP 35.8; O2SAT 97; BMI 61.2
--- NOTE | 2022-10-26 08:33 | EKG12_ITS ---
Test Reason : Blood Pressure : / mmHG Vent. Rate : 076 BPM Atrial Rate : 076 BPM P-R Int : 166 ms QRS Dur : 092 ms QT Int : 386 ms P-R-T Axes : 057 045 056 degrees QTc Int : 434 ms Normal sinus rhythm Minimal voltage criteria for LVH, may be normal variant ( Sokolow-Allen ) Nonspecific T wave abnormality Abnormal ECG Confirmed by STANISLAW CORTES, VALENTINO ([id number]), supervising editor trailer ZULEMA REECE ([id number]) on 10/30/2022 8:59:18 AM Referred By: MIGDALIA Confirmed By:VALENTINO DOVER MD
--- NOTE | 2022-10-26 08:42 | EDS_ITS ---
HPI History of Present Illness Chief Complaint: Upper Extremity Injury Informant: patient and spouse/S.O. Narrative Narrative: Presents referred from dialysis center due to enlarging hematoma upper arm. She had fistula placed last March by Dr. Landin. She has been doing dialysis Saturday followed by Dr. Ivory Reynaga. Her significant other, her electrolytes have been abnormal over the weekend therefore dialysis was done Saturday. On Saturday with her restless leg, they think the needle may have went deeper than normal she started having bruising. This is worsened over the last 3 days. Denies arm paresthesias. She went to dialysis today no dialysis performed due to the hematoma. She was sent here. She states minimal urine may be twice a day small amounts. Denies fevers denies vomiting or diarrhea. Denies any palpitations. [facility] Medical History Anemia Anxiety Arthritis Back pain Cancer Chest pain Chronic kidney failure Chronic renal disease, stage 5, glomerular filtration rate (GFR) less than or equal to 15 mL/min/1.73 square meter Diabetes Dialysis patient Exertional shortness of breath Fistula Former smoker Gastric reflux High cholesterol History of basal cell cancer History of echocardiogram History of irregular heartbeat History of pain when walking History of renal disease Hypertension Injury of head and neck Iron deficiency anemia Pleural effusion Post-menopausal Type 2 diabetes mellitus with diabetic chronic kidney disease Wears dentures Wears glasses Home Medications gabapentin 300 mg capsule 300 mg PO TID PRN NERVE PAIN 05/27/16 [History Last Taken 07/30/22] amlodipine 10 mg tablet 10 mg PO DAILY BLOOD PRESSURE 04/16/19 [History Last Taken 07/31/22] cholecalciferol (vitamin D3) 25 mcg (1,000 unit) tablet 2,000 unit PO DAILY supplement 04/16/19 [History Last Taken 07/31/22] lysine 1,000 mg tablet 1,000 mg PO DAILY supplement 04/16/19 [History Last Taken 07/31/22] multivitamin 1 tab PO DAILY supplement 04/16/19 [History Last Taken 07/31/22] calcium acetate(phosphat bind) 667 mg capsule 1 cap PO TID 03/23/22 [History Last Taken 07/31/22] famotidine 20 mg tablet 20 mg PO BID ACID REFLUX 03/23/22 [History Last Taken 07/31/22] atorvastatin 80 mg tablet 80 mg PO QHS CHOLESTEROL 05/04/22 [History Last Taken 07/31/22] cyclobenzaprine 10 mg tablet 5 - 10 mg PO TID PRN MUSCLE SPASMS 08/01/22 [History Last Taken 07/31/22] lidocaine-prilocaine 2.5 %-2.5 % topical cream 1 applic topical PRN PRN PORT ACCESS 08/01/22 [History Last Taken 07/30/22] magnesium oxide 400 mg (241.3 mg magnesium) tablet 400 mg PO QHS SUPPLEMENT 08/01/22 [History Last Taken 07/31/22] magnesium oxide 400 mg (241.3 mg magnesium) tablet 800 mg PO BREAKFAST SUPPLEMENT 08/01/22 [History Last Taken 07/31/22] meclizine 25 mg tablet 25 mg PO BID PRN Motion Sickness 08/01/22 [History Last Taken Unknown] metoprolol succinate 50 mg tablet,extended release 24 hr 50 mg PO QHS BLOOD PRESSURE 08/01/22 [History Last Taken 07/31/22] omega-3 fatty acids 1,000 mg capsule 2,000 mg PO BID SUPPLEMENT 08/01/22 [History Last Taken 07/31/22] pramipexole 0.25 mg tablet 0.25 mg PO QHS RESTLESS LEGS 08/01/22 [History Last Taken 07/31/22] vitamin B complex-vitamin C-folic acid 0.8 mg tablet (Keira-Nohemi) 1 tab PO DAILY SUPPLEMENT 08/01/22 [History Last Taken 07/31/22] metoprolol succinate 50 mg tablet,extended release 24 hr 50 mg PO DAILY #30 tabs 08/04/22 [Rx Last Taken Unknown] pramipexole 0.25 mg tablet 0.25 mg PO QHS #0 tabs 08/04/22 [Rx Last Taken Unknown] valsartan 160 mg tablet 160 mg PO DAILY #30 tabs 08/04/22 [Rx Last Taken Unknown] Allergy/AdvReac Type Severity Reaction Status Date / Time No Known Allergies Allergy Verified 10/26/22 08:13 Surgical History H/O local excision of skin lesion History of arteriovenostomy for renal dialysis (~03/2022) Hx of tooth extraction Social History household members: none Smoking Status: Former smoker alcohol intake: never ROS ROS ED Constitutional Constitutional ED: Denies chills, fever(s) or sweats Eyes Eyes: Denies change in vision ENT ENT ED: Denies dysphagia or sore throat Cardiovascular Cardiovascular: Denies chest pain, leg edema, palpitations or racing heartbeat Respiratory/Chest Respiratory/Chest: Denies cough, dyspnea or dyspnea on exertion Gastrointestinal Gastrointestinal: Denies abdominal pain, diarrhea, nausea or vomiting Genitourinary Genitourinary ED: Denies dysuria, hematuria or urinary frequency Musculoskeletal Musculoskeletal: Reports extremity pain; Denies back pain or neck pain Integumentary Denies rash or wounds Neurologic Neurologic: Denies headache(s), paresthesias or weakness EXAM Physical Exam Const Vital Signs: 10/26/22 08:14 Temperature 96.5 F L Temperature Source Temporal Pulse Rate 80 Respiratory Rate 17 Blood Pressure 130/94 H Blood Pressure Mean 106 Pulse Ox 97 Oxygen Delivery Method Room Air Positive well nourished and well developed General Appearance ED: well developed and NAD HEENT Reports moist mucous membranes normocephalic and atraumatic Eyes PERRL, EOMs intact bilaterally and conjunctivae normal General Eye ED: Yes normal appearance of both eyes Neck no lymphadenopathy and supple General: Negative for tenderness Chest Wall Chest: Negative for tenderness Resp normal respiratory effort and normal air movement Effort and Inspection: symmetric chest movement; Negative for respiratory distress Cardio regular rate, regular rhythm and no murmurs Peripheral Pulses: pulses 2+ throughout GI normal to inspection, nondistended, normoactive bowel sounds and non-tender Palpation: Negative for guarding or rebound tenderness present Back/Spine no CVA tenderness and no thoracic nor lumbar tenderness Extremity Extremity Narrative: Right upper extremity: Large hematoma proximally and medial aspect with induration, there is no external bleeding. Fistula palpated with a positive thrill distal to the hematoma. General Extremety ED: Negative for edema or tenderness General Extremity: Negative for edema Neuro oriented x3 and no sensory deficits noted Sensorium / Orientation: awake and alert Skin no rashes or lesions noted and no wounds MDM MDM MDM Narrative Medical decision making narrative: Patient vital stable exam concerns for hematoma. Differential also pseudoaneurysm to her fistula. She has history of recent metabolic electrolyte abnormalities. She did not have dialysis today yet. We will check EKG labs for evaluation of her electrolytes. I did reach out to her surgeon Dr. Landin, states imagings to rule out aneurysm of her fistula. Discussed with imaging department for the study. EKG sinus rhythm with no signs of hyperkalemia. Laboratory studies with CKD elevated creatinine BUN potassium 5.3. Duplex ultrasound the fistula discussion with technologist no pseudoaneurysm soft tissue hematoma noted. Per discussion with her vascular surgeon, may still use the fistula however distal to the hematoma. Nursing reach out to [facility], she can go directly to facility for her dialysis today. Explained this with the patient and her spouse. She is discharged to go to dialysis. Discussed hematoma will resolve over time. Lab Data Attestation: I reviewed the patient's lab results. EKG Initial EKG: Attestation: I personally reviewed and interpreted this EKG as follows: Comments: Sinus rate of 76, no ST changes isolated T wave inversion in lead III. Nonspecific. Discharge Plan Triage Chief Complaint: Upper Extremity Injury ED Provider: Ildefonso Burton Dx/Rx/DC Orders Clinical Impression: Hematoma of arm, ESRD on hemodialysis, Hyperkalemia Instructions: ED Hematoma Prescriptions: No Action gabapentin 300 MG capsule 300 mg PO TID PRN (Reason: NERVE PAIN) multivitamin 1 EACH tablet 1 tab PO DAILY lysine 1,000 MG tablet 1,000 mg PO DAILY amlodipine 10 MG tablet 10 mg PO DAILY Label Comments: TAKE 1 TABLET BY MOUTH DAILY cholecalciferol (vitamin D3) 1,000 UNIT tablet 2,000 unit PO DAILY famotidine 20 mg tablet 20 mg PO BID Label Comments: TAKE 1 TABLET BY MOUTH TWICE DAILY calcium acetate(phosphat bind) 667 mg capsule 1 cap PO TID Label Comments: TAKE 1 CAPSULE BY MOUTH THREE TIMES DAILY WITH MEALS atorvastatin 80 mg Tablet 80 mg PO QHS cyclobenzaprine 10 mg tablet 5 - 10 mg PO TID PRN (Reason: MUSCLE SPASMS) Label Comments: TAKE 1/2 (ONE-HALF) TO 1 (ONE) TABLET THREE TIMES DAILY NEEDED FOR MUSCLE SPASMS omega-3 fatty acids 1,000 mg capsule 2,000 mg PO BID Label Comments: TAKE 2 CAPSULES BY MOUTH TWICE DAILY metoprolol succinate 50 mg tablet extended release 24 hr 50 mg PO QHS Label Comments: TAKE 1 TABLET BY MOUTH DAILY lidocaine-prilocaine 2.5-2.5 % cream 1 applic topical PRN PRN (Reason: PORT ACCESS) magnesium oxide 400 mg (241.3 mg magnesium) tablet 800 mg PO BREAKFAST Label Comments: TAKE 1 TABLET BY MOUTH THREE TIMES DAILY magnesium oxide 400 mg (241.3 mg magnesium) tablet 400 mg PO QHS Label Comments: TAKE 1 TABLET BY MOUTH THREE TIMES DAILY meclizine 25 mg Tablet 25 mg PO BID PRN (Reason: Motion Sickness) Keira-Nohemi 0.8 mg tablet 1 tab PO DAILY Label Comments: TAKE 1 TABLET BY MOUTH DAILY pramipexole 0.25 mg tablet 0.25 mg PO QHS pramipexole 0.25 mg Tablet 0.25 mg PO QHS Qty: 0 0RF valsartan 160 mg tablet 160 mg PO DAILY Qty: 30 0RF metoprolol succinate 50 mg tablet extended release 24 hr 50 mg PO DAILY Qty: 30 0RF Primary Care Provider: Colin Pedraza Referrals: Colin Pedraza [Primary Care Provider] - 1 Week Activity Restrictions/Additional Instructions: Duplex ultrasound negative for any pseudoaneurysm. Soft tissue hematoma. Potassium 5.3. Per Dr. Landni, may continue dialysis distal to the hematoma. Go directly to dialysis center for your dialysis today. Disposition Disposition: Home, Self Care Discharge Date/Time: 10/26/22 10:41
--- NOTE | 2022-10-26 08:47 | AVDS_ITS ---
Reason For Study: R/O Pseudoaneurysm RIGHT Inflow, 258.9/135.5 cm/sec. Inflow, 1905 ml/min. Prox anastomosis, 710.8/375 cm/sec. Prox anastomosis, 2883 ml/min. Prox graft, 192.9/79.7 cm/sec. Prox graft, 2596 ml/min. Mid graft, 130.9/79.3 cm/sec. Mid graft, 1738 ml/min. Distal graft, 205.1/122.2 cm/sec. Distal graft, 2274 ml/min. Outflow, 72.4/20.4 cm/sec. Outlow, 197 ml/min. Large nonvascularized structure noted in the prox-mid bicep. No Pseudoaeurysm noted. Preliminary report given to Dr. Burton. VL/AV Fistula/Dialysis Graft Scan Interpretation Summary Right upper extremity transposed cephalic vein to brachial artery arteriovenous hemodialysis fistula which appears to be widely patent. Vein of generous diameter to a maximum of 1. 22 x 1.26 cm Flow rate is maximum at 2883 mm/min flow at the anastomosis. In the proximal fi stula 2596 mm/min flow. This is a high flow fistula. There is a large nonvascular structure in the proximal mid biceps area without current flow noted consistent with a hematoma Ordering Physician: Ildefonso Burton Referring Physician: Colin Pedraza Performed By: Marisol Lugo RVT
[2022-10-26 09:05] LABS: Absolute Lymphocyte Count 1.64 X10^3/uL (0.83-4.51); Absolute Neutrophil Count 6.4 X10^3/uL (2.0-7.7); Basophil# 0.05 X10^3/uL; Basophil% 0.5 % (0-1); Eosinophil# 0.52 X10^3/uL; Eosinophils% 5.5 % (0-5); Hematocrit 31.2 % (37-47); Hemoglobin 9.7 g/dL (12.0-15.0); Lymphocyte # 1.64 X10^3/ul (0.83-4.51); Lymphocyte % 17.4 % (19-41); Mean Corp Hgb Conc 31.1 g/dL (32-36); Mean Corpuscular Hgb 26.4 pg (27.0-32.0); Mean Corpuscular Volume 84.8 fL (81-99); Mean Platelet Vol. 10.6 fl (6.2-12.0); Monocyte# 0.79 X10^3/uL; Monocyte% 8.4 % (0-10); NRBC Flagged by Analyzer 0 % (0-5); Neutrophil # 6.37 X10^3/uL (2.7-7.7); Neutrophil % 67.8 % (47-70); Platelet Count 179 K/mm3 (150-450); RBC Distribution Width CV 16.2 % (11.6-14.6); RBC Distribution Width SD 50.5 fl (35.1-43.9); Red Blood Count 3.68 M/mm3 (4.2-5.4); White Blood Count 9.4 K/mm3 (4.4-11.0)
[2022-10-26 09:17] LABS: Partial Thromboplast Time 31.5 Seconds (24.1-36.2); Prothrombin Time (Protime)PT. 13.1 SECONDS (11.7-14.9)
[2022-10-26 09:32] LABS: Anion Gap 17 (5-15); BUN 106 mg/dL (7-18); BUN/Creat Ratio 14.3 RATIO (10-20); Chloride 91 mmol/L (98-107); Creatinine, Serum 7.42 mg/dL (0.55-1.02); EST Glomerular Filtration Rate 6 mL/min (>60); Est Glom Filt Rate - Afr Amer 8 mL/min (>60); Estimated Creatinine Clearance 6.84 ml/min; Glucose 259 mg/dL (74-106); Potassium 5.3 mmol/L (3.5-5.1); Sodium Level 133 mmol/L (136-145)
[2022-10-26 10:40] VITALS: BP 134/69; PULSE 75; RESP 18; O2SAT 97
== END 2022-10-26 10:41 | disposition home or self-care (01) ==
PROVIDERS: Emergency Provider Emergency Medicine; PCP Student in an Organized Health Care Education/Training Program; Visit Provider Emergency Medicine
DX: S40.021A Contusion of right upper arm, initial encounter (principal); Z99.2 Dependence on renal dialysis; E11.22 Type 2 diabetes mellitus with diabetic chronic kidney disease; I12.0 Hypertensive chronic kidney disease with stage 5 chronic kidney disease or end stage renal disease; N18.6 End stage renal disease; E87.5 Hyperkalemia; Z87.891 Personal history of nicotine dependence; E78.00 Pure hypercholesterolemia, unspecified
CPT/HCPCS: 80048; 85025; 85610; 85730; 93005; 93990; 99284; A4216

== ENCOUNTER 2022-10-29 22:47 | Emergency (ER) | payer MEDICAID, SELFPAY ==
[2022-10-29 22:49] VITALS: BP 150/82; PULSE 106; RESP 18; TEMP 36.1; BMI 27.5
[2022-10-29 22:51] VITALS: BP 150/82; PULSE 106; RESP 18; TEMP 36.1
== END 2022-10-29 23:45 | disposition left against medical advice (07) ==
LOC: ED 10-30
PROVIDERS: PCP Student in an Organized Health Care Education/Training Program
DX: R60.9 Edema, unspecified (principal); Z53.21 Procedure and treatment not carried out due to patient leaving prior to being seen by health care provider

== ENCOUNTER 2022-12-04 09:17 | Day surgery (SDC) | payer MEDICAID, SELFPAY ==
[2022-11-29 16:32] LABS: Hematocrit 36.4 % (37-47); Mean Corp Hgb Conc 30.2 g/dL (32-36); Mean Corpuscular Hgb 28.1 pg (27.0-32.0); Mean Corpuscular Volume 93.1 fL (81-99); Mean Platelet Vol. 10.6 fl (6.2-12.0); Platelet Count 173 K/mm3 (150-450); RBC Distribution Width CV 19.3 % (11.6-14.6); RBC Distribution Width SD 64.7 fl (35.1-43.9); Red Blood Count 3.91 M/mm3 (4.2-5.4); White Blood Count 5.7 K/mm3 (4.4-11.0)
[2022-11-29 17:17] LABS: Anion Gap 11 (5-15); BUN 53 mg/dL (7-18); BUN/Creat Ratio 8.7 RATIO (10-20); Calcium,Total 10.8 mg/dL (8.5-10.1); Chloride 88 mmol/L (98-107); Creatinine, Serum 6.12 mg/dL (0.55-1.02); EST Glomerular Filtration Rate 8 mL/min (>60); Est Glom Filt Rate - Afr Amer 9 mL/min (>60); Glucose 76 mg/dL (74-106); Potassium 5.5 mmol/L (3.5-5.1); Sodium Level 129 mmol/L (136-145)
[2022-12-03 08:24] VITALS: BMI 27.3
--- NOTE | 2022-12-04 10:36 | PCM.HP.BLA ---
History and Physical Date of Admission: 12/04/22 Visit Reasons:?FISTULAGRAM Chief Complaint: Fistulagram [employer] Director Required: No Is patient in pain?: No Allergies No Known Allergies Allergy (Verified 11/22/22 10:00) Medications gabapentin 300 mg capsule 300 mg PO TID PRN NERVE PAIN 05/27/16 [History Confirmed 11/22/22] amlodipine 10 mg tablet 10 mg PO DAILY BLOOD PRESSURE 04/16/19 [History Confirmed 11/22/22] cholecalciferol (vitamin D3) 25 mcg (1,000 unit) tablet 2,000 unit PO DAILY supplement 04/16/19 [History Confirmed 11/22/22] lysine 1,000 mg tablet 1,000 mg PO DAILY supplement 04/16/19 [History Confirmed 11/22/22] multivitamin 1 tab PO DAILY supplement 04/16/19 [History Confirmed 11/22/22] calcium acetate(phosphat bind) 667 mg capsule 1 cap PO TID 03/23/22 [History Confirmed 11/22/22] famotidine 20 mg tablet 20 mg PO BID ACID REFLUX 03/23/22 [History Confirmed 11/22/22] atorvastatin 80 mg tablet 80 mg PO QHS CHOLESTEROL 05/04/22 [History Confirmed 11/22/22] cyclobenzaprine 10 mg tablet 5 - 10 mg PO TID PRN MUSCLE SPASMS 08/01/22 [History Confirmed 11/22/22] lidocaine-prilocaine 2.5 %-2.5 % topical cream 1 applic topical PRN PRN PORT ACCESS 08/01/22 [History Confirmed 11/22/22] magnesium oxide 400 mg (241.3 mg magnesium) tablet 400 mg PO QHS SUPPLEMENT 08/01/22 [History Confirmed 11/22/22] magnesium oxide 400 mg (241.3 mg magnesium) tablet 800 mg PO BREAKFAST SUPPLEMENT 08/01/22 [History Confirmed 11/22/22] meclizine 25 mg tablet 25 mg PO BID PRN Motion Sickness 08/01/22 [History Confirmed 11/22/22] metoprolol succinate 50 mg tablet,extended release 24 hr 50 mg PO QHS BLOOD PRESSURE 08/01/22 [History Confirmed 11/22/22] omega-3 fatty acids 1,000 mg capsule 2,000 mg PO BID SUPPLEMENT 08/01/22 [History Confirmed 11/22/22] pramipexole 0.25 mg tablet 0.25 mg PO QHS RESTLESS LEGS 08/01/22 [History Confirmed 11/22/22] vitamin B complex-vitamin C-folic acid 0.8 mg tablet (Keira-Nohemi) 1 tab PO DAILY SUPPLEMENT 08/01/22 [History Confirmed 11/22/22] metoprolol succinate 50 mg tablet,extended release 24 hr 50 mg PO DAILY #30 tabs 08/04/22 [Rx Confirmed 11/22/22] pramipexole 0.25 mg tablet 0.25 mg PO QHS #0 tabs 08/04/22 [Rx Confirmed 11/22/22] valsartan 160 mg tablet 160 mg PO DAILY #30 tabs 08/04/22 [Rx Confirmed 11/22/22] PFSH Medical History? Anemia Anxiety Arthritis Back pain Cancer Chest pain Chronic kidney failure Chronic renal disease, stage 5, glomerular filtration rate (GFR) less than or equal to 15 mL/min/1.73 square meter Diabetes Dialysis patient Exertional shortness of breath Fistula Former smoker Gastric reflux High cholesterol History of basal cell cancer History of echocardiogram History of irregular heartbeat History of pain when walking History of renal disease Hypertension Injury of head and neck Iron deficiency anemia Pleural effusion Post-menopausal Type 2 diabetes mellitus with diabetic chronic kidney disease Wears dentures Wears glasses Surgical History? H/O local excision of skin lesion History of arteriovenostomy for renal dialysis (~03/2022) Hx of tooth extraction Social History? household members:? none Smoking Status:? Former smoker alcohol intake:? never HPI HPI Surgical H&P: Yes HPI: Patient is a 52 y/o F I am seeing today for problem with dialysis access. Patient has a transposed right upper extremity cephalic to brachial arteriovenous fistula created by Dr. Landin on 04/02/22. Patient currently dialyzes on M, W and F at [facility]. Dr. Latham is her angiographer. Patient was sent due to high venous pressures. Patient notes approximately 1 month ago she had to dialyze in [place] for an extra dialysis session. Patient states she was infiltrated at that dialysis center. She notes a large hematoma was formed. Ecchymosis extended into her right breast area. She notes today the hematoma is a moderate size. She denies pain at the area. She is not on any blood thinners. She has not had a fistulogram since the fistula was created. ROS General General: No weight change, appetite, fatigue, colon cancer, breast cancer or weakness HEENT HEENT: No difficulty swallowing, eye injury, eye surgery, swollen glands or hoarseness Endo Endocrine: Yes diabetes mellitus; No thyroid disease, thyroid cancer, Hair loss, heat intolerance or cold intolerance Skin Skin: No rash or changing moles Breast Breast: No left breast lump, right breast lump, nipple discharge, breast pain, abnormal mammogram, abnormal US or breast enlargement Musc Musculoskeletal: Yes back problems and arthritis; No rheumatoid arthritis, gout or joint pain Cardio Cardiovascular: Yes high blood pressure; No murmur, pacemaker, heart disease, atrial fibrillation, heart attack, heart stent, palpitations, shortness of breat with exertion or chest pain Psych Psychiatric: No depression, anxiety or hearing voices Resp Respiratory: No shortness of breath, Yes sleep apnea, No cough, No COPD, No asthma, No emphysema and No wheezing Gastro Gastrointestinal: No abdominal pain, No nausea or vomiting, No diarrhea, No constipation, No blood in stool, No acid reflux, No hemorrhoids, No ulcers, No gallbladder problem and No black,tarry stools Elliot Hematologic: No blood thinners, No blood disorders, No bleeding, No anemia and No blood clots Neuro Neurologic: No system reviewed and no additional complaints, except as documented, No as per HPI, No abnormal gait, No abnormal hearing, No abnormal movements, No abnormal speech, No behavioral changes, No burning sensations, No confusion, No convulsions, No disequilibrium, No dizziness, No localized weakness, No frequent falls, No headache(s), No lack of coordination, No loss of vision, No memory loss, No numbness, No other visual disturbances, No radicular pain, No restless legs, No sensory deficit, No syncope, No tingling, No tremor(s), No weakness and No other Exam Const General: cooperative, healthy appearing and comfortable [facility] Head: normal to inspection Eyes General: appearance normal, both eyes and all related structures Neck Neck: normal visual inspection Neck mass: No Resp Effort & Inspection: normal respiratory effort Auscultation: clear to auscultation bilaterally Cardio Rate: regular rate Rhythm: regular rhythm GI Inspection: normal to inspection Palpation: soft Musc Cervical Spine: normal cervical lordosis Skin General: no rashes or lesions noted Neuro General: no focal motor deficits and CN's II-XI intact bilaterally Extrem Other: Right upper extremity AV fistula- good pulse, diminished bruit and thrill at the inferior aspect of the fistula near the anastomosis and inferior access site. Moderate sized hematoma in the medial aspect of the right upper extremity. Psych Appearance: grossly normal Affect: normal affect Assessment and Plan Assessment and Plan (1) Problem with dialysis access: ?Status:?Acute ?Plan: Dr. Landin will plan to perform a non-urgent right upper extremity fistulogram. Procedure details, risks and benefits have been explained to the patient and her father. Patient has had the opportunity to ask and have questions answered. Patient verbally understands and agrees with the proposed plan. I have examined the patient and the H&P has been reviewed. There are no clinical changes since date of exam. Darek Landin M.D., F.A.C.S.
--- NOTE | 2022-12-04 12:18 | PCM.OPRPT ---
Report of Operation Date of Procedure: 12/04/22 Pre-Operative Diagnosis: Infiltration right upper extremity transposed cephalic vein to brachial artery arteriovenous hemodialysis fistula Post-Operative Diagnosis: Proximal right upper arm high-grade 90% venous stenosis Surgery/Procedure Performed:: Right upper extremity fistulogram with 6 x 150 mm EverCross angioplasty and 6 x 20 mm conquest angioplasty and 8 x 40 mm conquest angioplasty Description of Surgical Findings:: Timeout informed consent was obtained. The patient was taken the special procedure room placed on the table the right extremity sterilely prepped and draped throughout the procedure in aliquots she received 50 mcg of fentanyl and 2 mg of Versed is intravenous sedation the right extremity was sterilely prepped and draped 2% lidocaine was used as a local anesthetic micropuncture needle was inserted close to the arterial anastomosis micropuncture wire inserted 6 Georgian short sheath dilator was inserted using Isovue contrast fistulogram was obtained this demonstrated that in the upper third of the humerus there was diffuse narrowing of the cephalic vein with a focal area of 90% stenosis. There was otherwise good central venous outflow. The patient received 5000's of heparin. An 035 Glidewire was inserted. Initially a 6 x 150 mm EverCross balloon was inserted and balloon angioplasty performed just distal the cephalic arch. Balloon was insufflated to 14 carmine of pressure for 3 minutes. There was one focal area that did not respond. Remove that balloon and then placed a 6 x 2 conquest balloon and retreated the area that did not respond but again it did not respond so then after several attempts at 30 carmine of pressure and held for 3 minutes we removed the 6 mm diameter balloon and placed a 8 x 4 conquest balloon. Insufflation performed up to 30 carmine of pressure and held for 3 minutes and this was done twice. I had to up sheath to a 7 Georgian sheath to allow the reposition the balloon. Having achieved that now there was improvement in the focal area stenosis but still some irregular disease present. This point however I felt that on palpation there was an excellent thrill elected not to intervene further as that would require likely placement of a stent graft. Balloons wire were removed. U suture of 4-0 nylon was placed. Hemostasis was intact there was a good pulse thrill and bruit at the completion no apparent complication blood loss was minimal Images demonstrate a transposed right extremity cephalic vein brachial artery arteriovenous hemodialysis fistula. Retrograde views had been obtained. Demonstrates that in the upper third of the upper arm there was diffuse venous narrowing with a focal area of 90% narrowing. There is improvement in the diffuse area of stenosis with residual stenosis focally which did respond to the conquest angioplasty but incompletely. There is otherwise good arterial inflow and good proximal fistula inflow. Possible consideration of future need for placement of a stent graft and the patient will have short-term office follow-up. Specimens none. Drains none. Blood loss minimal Darek Landin M.D., F.A.C.S. Surgeon: Darek Landin Type of Anesthesia: IV Sedation and Local
== END 2022-12-04 13:30 | disposition home or self-care (01) ==
LOC: CLSP 09:18
PROVIDERS: PCP Student in an Organized Health Care Education/Training Program; Referring Provider Surgery; Visit Provider Surgery
DX: T82.590A Other mechanical complication of surgically created arteriovenous fistula, initial encounter (principal); E11.22 Type 2 diabetes mellitus with diabetic chronic kidney disease; N18.5 Chronic kidney disease, stage 5; I87.2 Venous insufficiency (chronic) (peripheral); Z87.891 Personal history of nicotine dependence; E78.00 Pure hypercholesterolemia, unspecified; K21.9 Gastro-esophageal reflux disease without esophagitis; Y82.9 Unspecified medical devices associated with adverse incidents
CPT/HCPCS: 36415; 36902; 80048; 85027; 99152; 99153; C1769; Q9967; C1725; C1894

== ENCOUNTER → 2023-01-16 | Outpatient (CLI) | payer MEDICAID, SELFPAY ==
[2023-01-16 10:39] LABS: Potassium 4.9 mmol/L (3.5-5.1)
== END | disposition home or self-care (01) ==
LOC: LABSPEC 10:16
PROVIDERS: PCP Student in an Organized Health Care Education/Training Program; Referring Provider Internal Medicine Nephrology; Visit Provider Internal Medicine Nephrology
DX: E87.5 Hyperkalemia (principal)
CPT/HCPCS: 84132

== ENCOUNTER 2023-02-28 09:17 | Day surgery (SDC) | payer MEDICAID, SELFPAY ==
[2023-02-27 08:32] VITALS: BMI 30.8
[2023-02-28 09:50] LABS: Absolute Lymphocyte Count 1.29 X10^3/uL (0.83-4.51); Absolute Neutrophil Count 5.2 X10^3/uL (2.0-7.7); Basophil# 0.07 X10^3/uL; Basophil% 0.9 % (0-1); Eosinophil# 0.26 X10^3/uL; Eosinophils% 3.5 % (0-5); Hematocrit 33.1 % (37-47); Hemoglobin 10.1 g/dL (12.0-15.0); Lymphocyte # 1.29 X10^3/ul (0.83-4.51); Lymphocyte % 17.4 % (19-41); Mean Corp Hgb Conc 30.5 g/dL (32-36); Mean Corpuscular Hgb 28.4 pg (27.0-32.0); Mean Platelet Vol. 10.3 fl (6.2-12.0); Monocyte# 0.64 X10^3/uL; Monocyte% 8.6 % (0-10); NRBC Flagged by Analyzer 0 % (0-5); Neutrophil # 5.15 X10^3/uL (2.7-7.7); Neutrophil % 69.3 % (47-70); Platelet Count 198 K/mm3 (150-450); RBC Distribution Width CV 18.6 % (11.6-14.6); Red Blood Count 3.56 M/mm3 (4.2-5.4); White Blood Count 7.4 K/mm3 (4.4-11.0)
--- NOTE | 2023-02-28 09:50 | PCM.HP.BLA ---
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 Is patient in pain?: No Allergies No Known Allergies Allergy (Verified 02/21/23 13:46) Medications gabapentin 300 mg capsule 300 mg PO TID PRN NERVE PAIN 05/27/16 [History Confirmed 02/21/23] amlodipine 10 mg tablet 10 mg PO DAILY BLOOD PRESSURE 04/16/19 [History Confirmed 02/21/23] cholecalciferol (vitamin D3) 25 mcg (1,000 unit) tablet 2,000 unit PO DAILY supplement 04/16/19 [History Confirmed 02/21/23] lysine 1,000 mg tablet 1,000 mg PO DAILY supplement 04/16/19 [History Confirmed 02/21/23] multivitamin 1 tab PO DAILY supplement 04/16/19 [History Confirmed 02/21/23] calcium acetate(phosphat bind) 667 mg capsule 1 cap PO TID 03/23/22 [History Confirmed 02/21/23] famotidine 20 mg tablet 20 mg PO BID ACID REFLUX 03/23/22 [History Confirmed 02/21/23] atorvastatin 80 mg tablet 80 mg PO QHS CHOLESTEROL 05/04/22 [History Confirmed 02/21/23] cyclobenzaprine 10 mg tablet 5 - 10 mg PO TID PRN MUSCLE SPASMS 08/01/22 [History Confirmed 02/21/23] lidocaine-prilocaine 2.5 %-2.5 % topical cream 1 applic topical PRN PRN PORT ACCESS 08/01/22 [History Confirmed 02/21/23] magnesium oxide 400 mg (241.3 mg magnesium) tablet 400 mg PO QHS SUPPLEMENT 08/01/22 [History Confirmed 02/21/23] magnesium oxide 400 mg (241.3 mg magnesium) tablet 800 mg PO BREAKFAST SUPPLEMENT 08/01/22 [History Confirmed 02/21/23] meclizine 25 mg tablet 25 mg PO BID PRN Motion Sickness 08/01/22 [History Confirmed 02/21/23] metoprolol succinate 50 mg tablet,extended release 24 hr 50 mg PO QHS BLOOD PRESSURE 08/01/22 [History Confirmed 02/21/23] omega-3 fatty acids 1,000 mg capsule 2,000 mg PO BID SUPPLEMENT 08/01/22 [History Confirmed 02/21/23] pramipexole 0.25 mg tablet 0.25 mg PO QHS RESTLESS LEGS 08/01/22 [History Confirmed 02/21/23] vitamin B complex-vitamin C-folic acid 0.8 mg tablet (Keira-Nohemi) 1 tab PO DAILY SUPPLEMENT 08/01/22 [History Confirmed 02/21/23] metoprolol succinate 50 mg tablet,extended release 24 hr 50 mg PO DAILY #30 tabs 08/04/22 [Rx Confirmed 02/21/23] pramipexole 0.25 mg tablet 0.25 mg PO QHS #0 tabs 08/04/22 [Rx Confirmed 02/21/23] valsartan 160 mg tablet 160 mg PO DAILY #30 tabs 08/04/22 [Rx Confirmed 02/21/23] ropinirole 0.25 mg tablet 0.25 mg PO 02/21/23 [History Confirmed 02/21/23] topiramate 25 mg tablet 25 mg PO 02/21/23 [History Confirmed 02/21/23] PFSH Medical History? Anemia Anxiety Arthritis Back pain Cancer Chest pain Chronic kidney failure Chronic renal disease, stage 5, glomerular filtration rate (GFR) less than or equal to 15 mL/min/1.73 square meter Diabetes Dialysis patient Exertional shortness of breath Fistula Former smoker Gastric reflux High cholesterol History of basal cell cancer History of echocardiogram History of irregular heartbeat History of pain when walking History of renal disease Hypertension Injury of head and neck Iron deficiency anemia Pleural effusion Post-menopausal Problem with dialysis access Type 2 diabetes mellitus with diabetic chronic kidney disease Wears dentures Wears glasses Surgical History? H/O local excision of skin lesion History of arteriovenostomy for renal dialysis (~03/2022) Hx of tooth extraction Social History? household members:? none Smoking Status:? Former smoker alcohol intake:? never HPI HPI Surgical H&P: Yes HPI: Patient is a 52 y/o F I am seeing for an update history and physical for an upcoming fistulogram procedure. Patient denies any recent hospitalizations or illnesses since her last visit. Patient has a history of restless leg syndrome. Patient had an episode at dialysis this past week which caused the needles to move and bleeding occurred around the needles. Patient denies any pain/discomfort. She any other concerns. Patient denies any blood thinners. Patient's past history from her previous visit on 01/17/23: Patient is a 52 y/o F I am following s/p right upper extremity fistulogram by Dr. Landin on 12/04/22. Patient tolerated the procedure well. Patient is currently on dialysis [facility], [facility]. Findings included proximal right upper arm high-grade 90% venous stenosis. Patient was referred to our office due to the fistula whistling and increased venous pressures. Patient denies any pain/discomfort. ROS General General: No weight change, appetite, fatigue, colon cancer, breast cancer or weakness HEENT HEENT: No difficulty swallowing, eye injury, eye surgery, swollen glands or hoarseness Endo Endocrine: Yes diabetes mellitus; No thyroid disease, thyroid cancer, Hair loss, heat intolerance or cold intolerance Skin Skin: No rash or changing moles Breast Breast: No left breast lump, right breast lump, nipple discharge, breast pain, abnormal mammogram, abnormal US or breast enlargement Musc Musculoskeletal: Yes back problems and arthritis; No rheumatoid arthritis, gout or joint pain Cardio Cardiovascular: Yes high blood pressure; No murmur, pacemaker, heart disease, atrial fibrillation, heart attack, heart stent, palpitations, shortness of breat with exertion or chest pain Psych Psychiatric: No depression, anxiety or hearing voices Resp Respiratory: No shortness of breath, Yes sleep apnea, No cough, No COPD, No asthma, No emphysema and No wheezing Gastro Gastrointestinal: No abdominal pain, No nausea or vomiting, No diarrhea, No constipation, No blood in stool, No acid reflux, No hemorrhoids, No ulcers, No gallbladder problem and No black,tarry stools Elliot Hematologic: No blood thinners, No blood disorders, No bleeding, No anemia and No blood clots Neuro Neurologic: No system reviewed and no additional complaints, except as documented, No as per HPI, No abnormal gait, No abnormal hearing, No abnormal movements, No abnormal speech, No behavioral changes, No burning sensations, No confusion, No convulsions, No disequilibrium, No dizziness, No localized weakness, No frequent falls, No headache(s), No lack of coordination, No loss of vision, No memory loss, No numbness, No other visual disturbances, No radicular pain, Yes restless legs, No sensory deficit, No syncope, No tingling, No tremor(s) and No weakness Exam Const General: cooperative, healthy appearing, comfortable and no acute distress [facility] Head: normal to inspection Eyes General: appearance normal, both eyes and all related structures Neck Neck: normal visual inspection Neck mass: No Resp Effort & Inspection: normal respiratory effort Auscultation: clear to auscultation bilaterally Cardio Rate: regular rate Rhythm: regular rhythm GI Inspection: normal to inspection Palpation: soft Musc Cervical Spine: normal cervical lordosis Skin General: no rashes or lesions noted Neuro General: no focal motor deficits Extrem Other: Right forearm radiocephalic AV fistula- good pulse, bruit and thrill. There is a high-pitched, whistling bruit at the proximal portion of the fistula. Psych Appearance: grossly normal Affect: normal affect Assessment and Plan Assessment and Plan (1) Problem with dialysis access: ?Status:?Acute ?Plan: Dr. Landin will plan to perform a non-urgent right upper extremity fistulogram with possible intervention with a cutting balloon and possible stenting. Procedure details, risks and benefits have been reviewed. Patient and her father have had the opportunity to ask and have questions answered. Patient verbally understand sand agrees with the plan. Patient is not on any blood thinners. I have examined the patient and the H&P has been reviewed. There are no clinical changes since date of exam. Possible use of a 7 or 8 mm in diameter cutting balloon if indicated. Darek Landin M.D., F.A.C.S.
[2023-02-28 10:03] LABS: Internal QC Validated? YES +Cl - CLEAR BKGD; Pregnancy, Serum, hCG Quali. NEGATIVE Negative
[2023-02-28 10:10] LABS: Anion Gap 11 (5-15); BUN 47 mg/dL (7-18); Calcium,Total 10.4 mg/dL (8.5-10.1); Chloride 98 mmol/L (98-107); Creatinine, Serum 6.74 mg/dL (0.55-1.02); EST Glomerular Filtration Rate 7 mL/min (>60); Est Glom Filt Rate - Afr Amer 8 mL/min (>60); Estimated Creatinine Clearance 7.54 ml/min; Glucose 102 mg/dL (74-106); Potassium 4.8 mmol/L (3.5-5.1); Sodium Level 135 mmol/L (136-145)
--- NOTE | 2023-02-28 11:21 | OP.PCM_ITS ---
Report of Operation Date of Procedure: 02/28/23 Pre-Operative Diagnosis: Diminished flow right upper extremity brachial cephalic arteriovenous hemodialysis fistula Post-Operative Diagnosis: 2 areas of fistula venous stenosis within the cephalic vein bordering the edge of the humerus Surgery/Procedure Performed:: Right upper extremity fistulogram with 8 x 2 Cutting Balloon angioplasty Description of Surgical Findings:: Timeout and informed consent was obtained. 52-year-old female was taken to special procedures lab placed upon the table she received 50 mcg of fentanyl and 2 mg of Versed is instrumented sedation. The right upper extremity prepped and draped. Ultrasound was used to identify the cephalic vein close to the arterial anastomosis. 2% lidocaine was instilled. 1 cc was used. Micropuncture technique used to antegrade with flow. Micropuncture wire inserted. 6 [place] short sheath was inserted. Using Isovue fistulogram was obtained. This demonstrated 2 areas of stenosis 1 over an area of about 2 cm long just proximal to the humeral head and 1 approximately 4 cm long just distal to the humeral head. There was otherwise good central venous outflow. The sheath was upgraded to a 7 [place] sheath. An 8 x 2 cutting balloon was inserted and multiple insufflations were performed at each site up to a maximum of 11 carmine of pressure. Completion imaging demonstrated dramatic improvement in both areas of stenosis. There wa conversion of pulsatile palpable flow to a palpable thrill. Balloon sheath removed few suture of 4-0 nylon was placed she tolerated procedure well no apparent complication blood loss minimal Images demonstrate a right upper extremity brachial cephalic arteriovenous hemodialysis fistula with 2 areas of clinically significant stenosis both proximal and distal to the humeral head. There was otherwise good cephalic arch and central venous outflow. Subsequent to the 8 x 2 Cutting Balloon angioplasty there appeared to be complete resolution of the 2 areas of stenosis. Darek Landin M.D., F.A.C.S. Surgeon: Darek Landin Type of Anesthesia: IV Sedation and Local
== END 2023-02-28 12:30 | disposition home or self-care (01) ==
LOC: CLSP 09:20
PROVIDERS: Physician Assistant; PCP Student in an Organized Health Care Education/Training Program; Referring Provider Surgery; Visit Provider Surgery
DX: T83.89XA Other specified complication of genitourinary prosthetic devices, implants and grafts, initial encounter (principal); Z99.2 Dependence on renal dialysis; I13.0 Hypertensive heart and chronic kidney disease with heart failure and stage 1 through stage 4 chronic kidney disease, or unspecified chronic kidney disease; E11.22 Type 2 diabetes mellitus with diabetic chronic kidney disease; N18.5 Chronic kidney disease, stage 5; I87.2 Venous insufficiency (chronic) (peripheral); Z87.891 Personal history of nicotine dependence; Y84.9 Medical procedure, unspecified as the cause of abnormal reaction of the patient, or of later complication, without mention of misadventure at the time of the procedure
CPT/HCPCS: 36415; 36902; 76937; 80048; 84703; 85025; 99152; 99153; Q9967; C1769; C1894

== ENCOUNTER → 2023-05-10 | Outpatient (CLI) | payer MEDICAID, SELFPAY ==
[2023-05-10 10:30] LABS: Potassium 5.7 mmol/L (3.5-5.1)
== END | disposition home or self-care (01) ==
LOC: LABSPEC 10:13
PROVIDERS: PCP Student in an Organized Health Care Education/Training Program; Referring Provider Internal Medicine Nephrology; Visit Provider Internal Medicine Nephrology
DX: N18.6 End stage renal disease (principal); Z99.2 Dependence on renal dialysis
CPT/HCPCS: 84132

== ENCOUNTER → 2023-05-14 | Outpatient (CLI) | payer MEDICAID, SELFPAY ==
[2023-05-14 15:01] LABS: Absolute Lymphocyte Count 1.48 X10^3/uL (0.83-4.51); Basophil# 0.04 X10^3/uL; Basophil% 0.8 % (0-1); Eosinophil# 0.16 X10^3/uL; Eosinophils% 3.1 % (0-5); Hematocrit 35.6 % (37-47); Lymphocyte # 1.48 X10^3/ul (0.83-4.51); Lymphocyte % 28.6 % (19-41); Mean Corp Hgb Conc 30.9 g/dL (32-36); Mean Corpuscular Volume 93.9 fL (81-99); Mean Platelet Vol. 10.5 fl (6.2-12.0); Monocyte# 0.49 X10^3/uL; Monocyte% 9.5 % (0-10); NRBC Flagged by Analyzer 0 % (0-5); Neutrophil # 2.99 X10^3/uL (2.7-7.7); Neutrophil % 57.8 % (47-70); Platelet Count 169 K/mm3 (150-450); RBC Distribution Width CV 17.1 % (11.6-14.6); RBC Distribution Width SD 58.8 fl (35.1-43.9); Red Blood Count 3.79 M/mm3 (4.2-5.4); White Blood Count 5.2 K/mm3 (4.4-11.0)
[2023-05-14 15:32] LABS: Anion Gap 8 (5-15); BUN 36 mg/dL (7-18); BUN/Creat Ratio 5.2 RATIO (10-20); Calcium,Total 10.3 mg/dL (8.5-10.1); Chloride 96 mmol/L (98-107); Creatinine, Serum 6.87 mg/dL (0.55-1.02); EST Glomerular Filtration Rate 7 mL/min (>60); Est Glom Filt Rate - Afr Amer 8 mL/min (>60); Glucose 113 mg/dL (74-106); Potassium 5.3 mmol/L (3.5-5.1); Sodium Level 135 mmol/L (136-145)
== END | disposition home or self-care (01) ==
LOC: PAVLAB 14:29
PROVIDERS: PCP Student in an Organized Health Care Education/Training Program; Referring Provider Physician Assistant; Visit Provider Physician Assistant
DX: T82.898A Other specified complication of vascular prosthetic devices, implants and grafts, initial encounter (principal)
CPT/HCPCS: 36415; 80048; 85025

== ENCOUNTER → 2023-05-16 | Day surgery (SDC) | payer MEDICAID, SELFPAY ==
[2023-05-15 08:04] VITALS: BMI 30.8
--- NOTE | 2023-05-16 10:43 | HP.PCM_ITS ---
History and Physical Date of Admission: 05/16/23 Visit Reasons: HIGH VENOUS PRESSURE Chief Complaint: high venous pressure Nutrition Assistant Required: No Is patient in pain?: No Allergies No Known Allergies Allergy (Verified 05/14/23 14:04) Medications gabapentin 300 mg capsule 300 mg PO TID PRN NERVE PAIN 05/27/16 [History Confirmed 05/14/23] amlodipine 10 mg tablet 10 mg PO DAILY BLOOD PRESSURE 04/16/19 [History Confirmed 05/15/23] cholecalciferol (vitamin D3) 25 mcg (1,000 unit) tablet 2,000 unit PO DAILY supplement 04/16/19 [History Confirmed 05/14/23] lysine 1,000 mg tablet 1,000 mg PO DAILY supplement 04/16/19 [History Confirmed 05/14/23] multivitamin 1 tab PO DAILY supplement 04/16/19 [History Confirmed 05/14/23] calcium acetate(phosphat bind) 667 mg capsule 1 cap PO TID 03/23/22 [History Confirmed 05/14/23] atorvastatin 80 mg tablet 80 mg PO QHS CHOLESTEROL 05/04/22 [History Confirmed 05/15/23] cyclobenzaprine 10 mg tablet 5 - 10 mg PO TID PRN MUSCLE SPASMS 08/01/22 [History Confirmed 05/14/23] lidocaine-prilocaine 2.5 %-2.5 % topical cream 1 applic topical PRN PRN PORT ACCESS 08/01/22 [History Confirmed 05/14/23] magnesium oxide 400 mg (241.3 mg magnesium) tablet 800 mg PO BREAKFAST SUPPLEMENT 08/01/22 [History Confirmed 05/14/23] meclizine 25 mg tablet 25 mg PO BID PRN Motion Sickness 08/01/22 [History Confirmed 05/14/23] omega-3 fatty acids 1,000 mg capsule 2,000 mg PO BID SUPPLEMENT 08/01/22 [History Confirmed 05/14/23] vitamin B complex-vitamin C-folic acid 0.8 mg tablet (Keira-Nohemi) 1 tab PO DAILY SUPPLEMENT 08/01/22 [History Confirmed 05/14/23] metoprolol succinate 50 mg tablet,extended release 24 hr 50 mg PO DAILY #30 tabs 08/04/22 [Rx Confirmed 05/14/23] valsartan 160 mg tablet 160 mg PO DAILY #30 tabs 08/04/22 [Rx Confirmed 05/14/23] topiramate 25 mg tablet 25 mg PO DAILY 02/21/23 [History Confirmed 05/14/23] buspirone 7.5 mg tablet 7.5 mg PO TID 05/14/23 [History Confirmed 05/15/23] ferrous sulfate 325 mg (65 mg iron) tablet,delayed release 325 mg PO DAILY 05/14/23 [History Confirmed 05/14/23] furosemide 80 mg tablet 80 mg PO BID 05/14/23 [History Confirmed 05/14/23] lysine 1,000 mg tablet 1,000 mg PO DAILY 05/14/23 [History Confirmed 05/14/23] sevelamer carbonate 800 mg tablet mg PO 05/14/23 [History Confirmed 05/14/23] sodium zirconium cyclosilicate 10 gram oral powder packet (Lokelma) g PO 05/14/23 [History Confirmed 05/14/23] PFSH Medical History Anemia Anxiety Arthritis Back pain Cancer Chest pain Chronic kidney failure Chronic renal disease, stage 5, glomerular filtration rate (GFR) less than or equal to 15 mL/min/1.73 square meter Diabetes Dialysis patient Exertional shortness of breath Fistula Former smoker Gastric reflux High cholesterol History of basal cell cancer History of echocardiogram History of irregular heartbeat History of pain when walking History of renal disease Hypertension Injury of head and neck Iron deficiency anemia Pleural effusion Post-menopausal Problem with dialysis access Type 2 diabetes mellitus with diabetic chronic kidney disease Wears dentures Wears glasses Surgical History H/O local excision of skin lesion History of arteriovenostomy for renal dialysis (~03/2022) Hx of tooth extraction Social History household members: none Smoking Status: Former smoker alcohol intake: never HPI HPI Surgical H&P: Yes HPI: Patient is a 52 y/o F I am seeing due to high venous pressures during dialysis. Patient notes for approximately 1 week, dialysis has noted patient's venous pressures have been very high. Dialysis had contacted our office last week noting that the patient needed an urgent fistulogram. At that time we did not have an opening. Dialysis sent the patient to [facility] yesterday. An attempt at a fistulogram was made and patient had an episode of restless legs. The procedure was aborted due to the patient not being able to sit still and no sedation was provided. Patient notes she has been able to complete her treatments. Patients most recent fistulogram was on 02/28/23. Findings included 2 areas of venous stenosis within the cephalic vein bordering the edge of the humerus. An 8 x 2 Cutting balloon angioplasty was successfully performed. ROS General General: No weight change, appetite, fatigue, colon cancer, breast cancer or weakness HEENT HEENT: No difficulty swallowing, eye injury, eye surgery, swollen glands or hoarseness Endo Endocrine: Yes diabetes mellitus; No thyroid disease, thyroid cancer, Hair loss, heat intolerance or cold intolerance Skin Skin: No rash or changing moles Breast Breast: No left breast lump, right breast lump, nipple discharge, breast pain, abnormal mammogram, abnormal US or breast enlargement Musc Musculoskeletal: Yes back problems and arthritis; No rheumatoid arthritis, gout or joint pain Cardio Cardiovascular: Yes high blood pressure; No murmur, pacemaker, heart disease, atrial fibrillation, heart attack, heart stent, palpitations, shortness of breat with exertion or chest pain Psych Psychiatric: No depression, anxiety or hearing voices Resp Respiratory: No shortness of breath, Yes sleep apnea, No cough, No COPD, No asthma, No emphysema and No wheezing Gastro Gastrointestinal: No abdominal pain, No nausea or vomiting, No diarrhea, No constipation, No blood in stool, No acid reflux, No hemorrhoids, No ulcers, No gallbladder problem and No black,tarry stools Elliot Hematologic: No blood thinners, No blood disorders, No bleeding, No anemia and No blood clots Neuro Neurologic: No system reviewed and no additional complaints, except as documented, No as per HPI, No abnormal gait, No abnormal hearing, No abnormal movements, No abnormal speech, No behavioral changes, No burning sensations, No confusion, No convulsions, No disequilibrium, No dizziness, No localized weakness, No frequent falls, No headache(s), No lack of coordination, No loss of vision, No memory loss, No numbness, No other visual disturbances, No radicular pain, Yes restless legs, No sensory deficit, No syncope, No tingling, No tremor(s) and No weakness Exam Const General: cooperative, healthy appearing, comfortable and no acute distress [facility] Head: normal to inspection Eyes General: appearance normal, both eyes and all related structures Neck Neck: normal visual inspection Neck mass: No Resp Effort & Inspection: normal respiratory effort Auscultation: clear to auscultation bilaterally Cardio Rate: regular rate Rhythm: regular rhythm GI Inspection: normal to inspection Palpation: soft Musc Cervical Spine: normal cervical lordosis Skin General: no rashes or lesions noted Neuro General: no focal motor deficits and CN's II-XI intact bilaterally Extrem General: normal to inspection Other: Right upper extremity fistula- good pulse, bruit and thrill. Slightly diminished between the two access sites Psych Appearance: grossly normal Affect: normal affect Assessment and Plan Assessment and Plan (1) Problem with dialysis access: Status: Acute Qualifiers: Encounter type: subsequent encounter Qualified Code(s): T82.898D - Other specified complication of vascular prosthetic devices, implants and grafts, subsequent encounter Plan: Dr. Landin will perform a non-urgent right upper extremity fistulogram. Procedure details, risks and benefits have been explained. Patient and her father have had the opportunity to ask and have questions answered. Patient verbally understands and agrees with the plan. Dr. Landin had an opening this and patient was scheduled then, not due to fistula urgency. I have examined the patient and the H&P has been reviewed. There are no clinical changes since date of exam. Darek Landin M.D., F.A.C.S.
--- NOTE | 2023-05-16 12:21 | PCM.OPRPT ---
Report of Operation Date of Procedure: 05/16/23 Pre-Operative Diagnosis: Diminished flow right upper extremity brachial cephalic arteriovenous hemodialysis fistula Post-Operative Diagnosis: Diminished flow right extremity brachial cephalic arteriovenous hemodialysis fistula with 2 areas of high-grade venous stenosis proximal humerus level and cephalic arch Surgery/Procedure Performed:: Right upper extremity fistulogram with 9 x 4 conquest angioplasty and 9 x 6 Impact DCB angioplasty and 9 x 8 Impact DCB angioplasty Description of Surgical Findings:: Timeout informed consent was obtained. The patient was taken the procedure room placed on the table. 50 mcg of fentanyl and 3 mg Versed were given sensitization to help assist with a restless leg syndrome. After initiation the procedure she did receive 5000 units of heparin intravenously. The right upper extremity was sterilely prepped and draped. 2% lidocaine was used as a local anesthetic closer to the antecubital space antegrade with flow. Local was instilled micropuncture needle inserted micropuncture wire inserted 6 English sheath and sided using Isovue contrast fistulogram was obtained. This demonstrated 2 areas of the high-grade venous stenosis over a distance centrally of approximately 4 cm and slightly more distally in the upper arm approximately 6 cm. The heparin was given. A stiff Glidewire was placed. 9 x 4 conquest angioplasty was performed of each lesion. A couple insufflations were required. Then a impact 9 x 6 DCB was placed to treat the cephalic arch and a 9 x 8 DCP by Impact was placed in the proximal humeral area. Both DCB balloon inflations were performed to 11 carmine of pressure and held for 2-1/2 to 3 minutes. Final fistulogram was obtained demonstrating notable improvement in the humerus stenosis with 20% residual stenosis of the cephalic arch. By palpation there was return of an absolutely wonderfully palpable thrill. Sheath removed few suture of 4-0 nylon was placed in a digital simple suture of 4-0 nylon was placed hemostasis was intact she tolerated the procedure very well. Images demonstrate a right upper extremity brachial cephalic arteriovenous hemodialysis fistula with 2 areas of high-grade venous stenosis 1 at the cephalic arch and 1 at the proximal humerus level. Subsequent to the high-grade 9 x 4 conquest angioplasty and the subsequent 9 x 6 and 9 x 8 Impact DCB angioplasty there was complete resolution of the stenosis at the proximal humerus level and there was 20% residual stenosis at the cephalic arch. Clinically the fistula much improved with resolution of pulsatile obstructive flow and resumption of a palpable thrill A total of 35 cc of Isovue contrast was utilized Darek Landin M.D., F.A.C.S. Surgeon: Darek Landin Type of Anesthesia: IV Sedation and Local
== END | disposition home or self-care (01) ==
PROVIDERS: PCP Student in an Organized Health Care Education/Training Program; Referring Provider Surgery; Visit Provider Surgery
DX: T82.898A Other specified complication of vascular prosthetic devices, implants and grafts, initial encounter (principal); Z99.2 Dependence on renal dialysis; E11.59 Type 2 diabetes mellitus with other circulatory complications; E11.22 Type 2 diabetes mellitus with diabetic chronic kidney disease; I87.2 Venous insufficiency (chronic) (peripheral); D50.9 Iron deficiency anemia, unspecified; I12.9 Hypertensive chronic kidney disease with stage 1 through stage 4 chronic kidney disease, or unspecified chronic kidney disease; E78.00 Pure hypercholesterolemia, unspecified; Z87.891 Personal history of nicotine dependence; N18.9 Chronic kidney disease, unspecified
CPT/HCPCS: 36902; 36907; 99152; 99153; C2623; Q9967; C1725; C1769; C1894

== ENCOUNTER → 2023-05-23 | Outpatient (CLI) | payer MEDICAID, SELFPAY ==
--- NOTE | 2023-05-23 10:41 | AVDS_ITS ---
Reason For Study: Complications with dialysis catheter, Assess for steal RIGHT Inflow, 272.1/110.4 cm/sec. Inflow, 1702 ml/min. Prox anastomosis, 199.1/92.5 cm/sec. Prox anastomosis, 940.6 ml/min. Prox graft, 357.4/193.6 cm/sec. Prox graft, 8716 ml/min. Mid graft, 179.9/86.1 cm/sec. Mid graft, 6628 ml/min. Distal graft, 120/65.1 cm/sec. Distal graft, 3663 ml/min. Outflow, 324.4/164 cm/sec. Outlow, 4389 ml/min. Radial artery, prox, 55.9 cm/sec. Radial artery, mid, 62.4 cm/sec. Radial artery, distal, 54.6 cm/sec. Ulnar artery, prox, 45.6 cm/sec. Ulnar artery, mid, 40.4 cm/sec. Ulnar artery, distal, 43 cm/sec. Preliminary report given to Hellen Noel PA-C. VL/AV Fistula/Dialysis Graft Scan Interpretation Summary Volume flow of the right brachial artery is elevated at 1702 mL/min Widely patent right upper extremity fistula anastomosis Very high flow right upper extremity proximal fistula at 8716 mL/min Right upper extremity mid graft diameter is 1.52 x 1.62 cm in diameter Right radial artery flow is blunted with a peak systolic velocity of 55.9 cm/s Right ulnar artery flow proximally is diminished at 45.6 cm second with blunted waveform Findings correlate with a forearm steal related to a right upper extremity lani riovenous hemodialysis fistula Ordering Physician: Hellen Noel Referring Physician: Colin Pedraza Performed By: Marisol Lugo RVT
== END | disposition home or self-care (01) ==
LOC: CVS 10:41
PROVIDERS: PCP Student in an Organized Health Care Education/Training Program; Referring Provider Physician Assistant; Visit Provider Physician Assistant
DX: T82.898D Other specified complication of vascular prosthetic devices, implants and grafts, subsequent encounter (principal)
CPT/HCPCS: 93990